=== PATIENT | male | born 1950 | race Caucasian/White ===

== ENCOUNTER 2022-11-29 18:02 | Emergency (ER) | payer MEDICARE, SELFPAY ==
[2022-11-29 18:38] VITALS: BP 148/73; PULSE 88; RESP 16; TEMP 36.7; O2SAT 95; BMI 29.5
--- NOTE | 2022-11-29 18:50 | XRR_ITS ---
PROCEDURE INFORMATION: Exam: XR Lumbosacral Spine Exam date and time: 11/29/2022 9:52 PM Age: 72 years old Clinical indication: Low back pain; Additional info: Low back pain with left radiculopathy TECHNIQUE: Imaging protocol: Radiologic exam of the lumbosacral spine. Views: 2 or 3 views. COMPARISON: No relevant prior studies available. FINDINGS: Bones/joints: Diffuse demineralization of the bones. The vertebral body stature is intact. 6 mm anterior subluxation of L4 on L5. Mild degenerative endplate changes, greatest at L1-L2 and L2-L3. The disc spaces are maintained. Soft tissues: Unremarkable. Vasculature: Abdominal arterial calcifications. XR/XR lumbar spine 2-3V* [id number] IMPRESSION: No acute findings.
[2022-11-29] MEDS: ketorolac 60 mg/2 mL INJ IM (23:19)
[2022-11-29] MEDS: orphenadrine 30 mg/mL Inj 2 mL 60 MG IM (23:20)
[2022-11-29 23:24] VITALS: BP 157/75; PULSE 58; RESP 18; O2SAT 96
--- NOTE | 2022-11-30 00:27 | ED_ITS ---
HPI - Back Pain/Injury General: Chief Complaint: Back Pain/Injury Stated Complaint: back pain Time Seen by Provider: 11/29/22 22:05 Source: patient Mode of arrival: ambulatory Limitations: no limitations History of Present Illness: Patient presents emergency department today for evaluation treatment of left low back, left buttock, and left upper leg pain. Patient noticed onset a couple of days ago without any known reason. He denies falls or MVAs. He does deal with chronic back pain but has never had anything quite like this. He states that weightbearing on the left extremity makes the pain worse and describes the pain as shooting from the left buttock region down the left lateral hip and left lateral leg. Pain stops around the knee. He denies tingling or numbness into the foot. No difficulty with bowel or bladder function. Review of Systems General: Reports: 10 or more systems reviewed and unremarkable except in HPI and below Physical Exam Const: COMMON NORMALS: no acute distress, patient oriented x3 and alert HENMT: COMMON NORMALS: normocephalic, atraumatic and hearing grossly normal bilaterally HEAD & SCALP: normocephalic and atraumatic Eye: COMMON NORMALS: Equal, round and reactive pupils present, EOMs intact bilaterally and conjunctivae normal CONJUNCTIVA: Yes conjunctivae normal PUPIL: Yes Equal, round and reactive pupils present Neck/C-Spine: COMMON NORMALS: full ROM and no JVD Lymph: LYMPHATIC: no lymphadenopathy noted Resp: COMMON NORMALS: normal respiratory effort, No retractions and No use of accessory muscles Cardio: COMMON NORMALS: no JVD and regular rate RATE: regular rate Extremity: NARRATIVE EXTREMITY EXAM: Patient is able to demonstrate full flexion extension of the left hip and left knee without difficulty. Patient's pain is traceable from the left mid buttock region down the left lateral hip and the left lateral thigh. Neuro: COMMON NORMALS: patient oriented x3 SENSORIUM/ORIENTATION: Yes alert Psych: COMMON NORMALS: mental status grossly normal, Normal thought process present, cooperative and normal affect THOUGHT PROCESS: Normal thought process present Skin: COMMON NORMALS: no rashes or lesions noted and turgor normal GENERAL SKIN EXAM: no rashes or lesions noted and turgor normal OTHER: No lower extremity edema appreciated. Course Vital Signs: Vital signs: Vital Signs Temperature 98.0 F 11/29/22 18:38 Pulse Rate 58 L 11/29/22 23:24 Respiratory Rate 18 11/29/22 23:24 Blood Pressure 157/75 11/29/22 23:24 Pulse Oximetry 96 11/29/22 23:24 Oxygen Delivery Me thod Room Air 11/29/22 23:24 MDM - Back Pain/Injury Medical Decision Making Given the lack of any known trauma and, distribution of the patient's pain from the left buttock region along the left lateral thigh, I do think patient is dealing with sciatica. However, as he indicates he has never had this before we did obtain lumbar films which, explained showed an area of anterior subluxation of L4 on L5. Explained symptoms of nerve root impingement and lumbar radiculopathy. Unfortunately, explained that this could become a recurrent issue given the general degenerative changes in his low back. Patient was tr eated with medication here in the emergency department with a prescription being sent in his discharge packet home with him to be picked up at his preferred pharmacy to be continued in the morning to continue treatment of his sciatic nerve pain. He was still given strict return precautions for inability to bear weight or loss of sensation in the extremity or, any change in bowel or bladder function. Patient verbalizes understanding and agreement to the treatment plan. Differential Diagnosis Likely lumbar radiculopathy, sciatica and strain of lumbar region; Unlikely pyelonephritis Labs Radiology Impressions Lumbar Spine X-Ray 11/29/22 18:50 IMPRESSION: No acute findings. Discharge Plan Discharge Patient Disposition: Home Clinical Impression: Lumbar radiculopathy, Sciatica Condition: Stable Prescriptions: New methylprednisolone 4 mg tablets,dose pack See Rx Instructions PO .COMPLEX Qty: 21 0RF Rx Instructions: orally per package directions methocarbamol 500 mg tablet 500 mg PO TID Qty: 15 0RF naproxen 500 mg tablet 500 mg PO BID PRN (Reason: pain) Qty: 20 0RF Discharge Orders: Discharge ED (Routine); Ordered 11/29/22 Ordered By: Natalie Watts Referrals: Lyle De La O DO [Primary Care Provider] - Discharge Diet: Usual diet Discharge Activity: Increase activity as tolerated Patient Instructions: Sciatica (ED) Activity Restrictions/Additional Instructions: Examination today appears consistent with sciatica. As we discussed, you have what appears to be a pinching of the nerve root from your low back. The x-ray read by the radiologist also confirms that there is some shifting back of a vertebrae in your low back though the actual structure of the vertebrae and the spacing above and below them are good. I have given you some information regarding sciatic nerve pain and pinching of the nerve roots for your reference at home. We are treating you with anti-inflammatory medications which can help. I still encourage you to use your gabapentin regularly for the next several days and you can still use your Eckley if needed. If you have inability to control your bowel or bladder functions or, are unable to feel your left lower extremity you need to be seen and reevaluated back to the emergency department. Coding Level of Care Code ED Paint Prep Technician for Erwin Snow
== END 2022-11-29 23:48 | disposition home or self-care (01) ==
PROVIDERS: Emergency Provider Physician Assistant; PCP Internal Medicine
DX: M54.16 Radiculopathy, lumbar region (principal); M54.30 Sciatica, unspecified side
CPT/HCPCS: 72100; 96372; 99284; J1885; J2360

== ENCOUNTER 2023-06-03 18:50 | Emergency (ER) | payer MEDICARE, SELFPAY ==
[2023-06-03 18:59] VITALS: BP 125/76; PULSE 101; TEMP 36.3; O2SAT 98; BMI 25.8
--- NOTE | 2023-06-03 19:15 | ED_ITS ---
HPI - Epistaxis General: Chief complaint: Epistaxis Stated complaint: nose bleed, post nasal surgery Time Seen by Provider: 06/03/23 19:08 History of Present Illness: Patient presents to the ER with complaints of nosebleed from bilateral naris, Dr. Bartlett did nasal surgery on him earlier today and put packing up. Patient stated that couple hours later started bleeding a couple more hours to just busted loose and is just running out his nose. Patient does report being on blood thinners and only holding them 2 days prior to surgery. Review of Systems General: Reports: 10 or more systems reviewed and unremarkable except in HPI and below Physical Exam Const: COMMON NORMALS: no acute distress, average body habitus, patient oriented x3, no limitations, healthy appearing, alert and well nourished HENMT: COMMON NORMALS: normocephalic, atraumatic, hearing grossly normal bilaterally, external ears normal and Normal external nose present; nasal mucous membranes&turbinates abnorm (Occluded with clot bilaterally worse on the left side epistaxis bilateral) HEAD & SCALP: normocephalic and atraumatic NOSE: Normal external nose present; nasal mucous membranes&turbinates abnorm (Occluded with clot bilaterally worse on the left side epistaxis bilateral) EXTERNAL EAR: Yes external ears normal Neck/C-Spine: COMMON NORMALS: full ROM, no lymphadenopathy, supple, no meningeal signs, no JVD and Thyroid normal THYROID: Thyroid normal Chest: COMMONS NORMALS: normal inspection of the chest and normal palpation of entire chest wall Resp: COMMON NORMALS: normal respiratory effort, No retractions, No use of accessory muscles and clear to auscultation bilaterally AUSCULTATION: clear to auscultation bilaterally Cardio: COMMON NORMALS: no JVD, regular rate, regular rhythm, S1 normal heart sound present, S2 normal heart sound present, No gallops present (Cardio), No clicks present (Cardio), No murmurs present (Cardio) and No rub (Cardio) RATE: regular rate RHYTHM: regular rhythm HEART SOUNDS: S1 normal heart s ound present and S2 normal heart sound present Neuro: COMMON NORMALS: patient oriented x3 SENSORIUM/ORIENTATION: Yes alert MENINGEAL SIGNS: Yes no meningeal signs Course Vital Signs: Vital signs: Vital Signs Temperature 97.4 F L 06/03/23 18:59 Pulse Rate 103 H 06/03/23 20:52 Respiratory Rate 16 06/03/23 20:52 Blood Pressure 117/97 06/03/23 20:52 Pulse Oximetry 91 06/03/23 20:52 Oxygen Delivery Me thod Room Air 06/03/23 18:59 MDM - Epistaxis Medical Decision Making Talk with Dr. Mrashall said if we can place bilateral Rhino Rocket's and if this does control bleeding he can follow-up with him in a couple days if this does not control bleeding or we cannot do that successfully call him back and he will come in. We tried to remove the clot manually and with suction and placed a Rhino Rocket in the left nares we were unsuccessful. We called Dr. Marshall who came in and proceeded to take care of the patient. Dr. Bartlett said he can be discharged. Differential Diagnosis Likely anterior epistaxis Medical Records I reviewed the patient's medical records. Lab Data I reviewed the patient's lab results. No radiology studies performed this visit Discharge Plan Discharge Patient Disposition: Home Clinical Impression: Epistaxis Condition: Stable Prescriptions: No Action methylprednisolone 4 mg tablets,dose pack See Rx Instructions PO .COMPLEX Qty: 21 0RF Rx Instructions: orally per package directions methocarbamol 500 mg tablet 500 mg PO TID Qty: 15 0RF naproxen 500 mg tablet 500 mg PO BID PRN (Reason: pain) Qty: 20 0RF Discharge Orders: Discharge ED (Routine); Ordered 06/03/23 Ordered By: Leonardo Smith Referrals: Lyle De La O DO [Primary Care Provider] - 1 week Patient Instructions: Epistaxis - Adult Activity Restrictions/Additional Instructions: Please follow Dr. Bello recommendations for your nosebleed. If it restarts to bleed please feel free to return to the ER for evaluation. Coding Level of Care Code ED Bleach Boiler Puller for Erwin Snow
--- NOTE | 2023-06-03 20:10 | PM.CONSULT ---
Providers/Reason For Consult Consulting Physician/Specialty*: Dr. Cameron Marshall MD Otolaryngology, Head & Neck Surgery Reason for Consult*: Post op epistaxis Requesting Physician: Dr. Smith Attending Physician: Dr. Smith Primary Care Provider: Lyle De La O DO History of Present Illness History of Present Illness Fabien Barakat is a 72 year old male who underwent bilateral endoscopic endonasal sinus surgery earlier today for chronic sinusitis with obstructing nasal polyposis who developed persistent, significant left sided epistaxis after his discharge from same day surgery earlier today. The patient denies any use of blood thinners or NSAIDs. The patient is without other c/o. Review of Systems General: Reports: 10 or more systems reviewed and unremarkable except in HPI and below Medications/Allergies Home Medications Medication Instructions Recorded Confirmed Last Taken Type methocarbamol 500 mg tablet 500 mg PO TID #15 tabs 11/29/22 Unknown Rx methylprednisolone 4 mg tablets in See Rx Instructions PO .COMPLEX 11/29/22 Unknown Rx a dose pack #21 ea naproxen 500 mg tablet 500 mg PO BID PRN pain #20 tabs 11/29/22 Unknown Rx Allergies Allergy/AdvReac Type Severity Reaction Status Date / Time No Known Allergies Allergy Verified 06/03/23 19:03 Doxycycline (100mg) tabs: one po BID [place] (5/325) tabs: 1-2 po Q5 hours prn pain Vitals/I&O/Wt Last Vital Signs Temp 97.4 F L 06/03/23 18:59 Pulse 101 H 06/03/23 18:59 BP 125/76 06/03/23 18:59 Pulse Ox 98 06/03/23 18:59 O2 Del Method Room Air 06/03/23 18:59 Weight last 48 hrs Weight 81.647 kg Physical Exam Const: COMMON NORMALS: patient oriented x3 GENERAL APPEARANCE: cooperative HENMT: COMMON NORMALS: normocephalic, atraumatic and hearing grossly normal bilaterally HEAD & SCALP: normocephalic and atraumatic FACE & SINUS: normal facial exam NOSE: Other nasal findings present (There is persistent epistaxis flowing from the left nasal cavity) Eye: COMMON NORMALS: EOMs intact bilaterally, no scleral icterus and normal visual woodward by confrontation Neck/C-Spine: COMMON NORMALS: full ROM and no lymphadenopathy Neuro: COMMON NORMALS: patient oriented x3 A&P Assessment and plan (1) Epistaxis: Impression: Post Surgical Epistaxis, Left Sided - Now controlled Plan: - Continue po Doxycycline and [place] as prescribed - Apply OTC Afrin nasal spray to the nose QID X 4 days - F/U in Dr. Marshall's office as previously outlined - Notify Dr. Marshall for any problems Consult Attestations Medical Necessity Statement: I was consulted to control the patient's post op Epistaxis. Procedures Procedure Narrative Anterior Nasal Packing Placement, Left Sided: Verbal informed consent was obtained from the patient; a Merocel pack was placed in the left nasal cavity without difficulty; the bleeding resolved after application of Afrin nasal spray to the nasal packing; the patient tolerated the procedure well. Coding Level of Care Code [facility] Ep[facility] R04.0
[2023-06-03 20:52] VITALS: BP 117/97; PULSE 103; RESP 16; O2SAT 91
== END 2023-06-03 20:53 | disposition home or self-care (01) ==
PROVIDERS: Emergency Provider Emergency Medicine; PCP Internal Medicine
DX: R04.0 Epistaxis (principal)
CPT/HCPCS: 99282

== ENCOUNTER 2024-06-21 13:40 | Inpatient (IN) | payer MEDICARE, SELFPAY ==
[2024-06-21] VITALS (14 sets, daily range): BP systolic 129–176; BP diastolic 66–93; PULSE 72–83; RESP 16–20; TEMP 36.7–37.3; O2SAT 86–93; BMI 28.7
--- NOTE | 2024-06-21 14:43 | XRR_ITS ---
PROCEDURE INFORMATION: Exam: XR Chest Exam date and time: 06/21/2024 3:20 PM Age: 73 years old Clinical indication: Shortness of breath; Additional info: SOB TECHNIQUE: Imaging protocol: Radiologic exam of the chest. Views: 1 view. COMPARISON: No relevant prior studies available. FINDINGS: Lungs: Mild bilateral lower lung predominant ill-defined reticulonodular opacity. Pleural spaces: The right lateral costophrenic sulcus is blunted. The left lateral costophrenic sulcus is blunted. No pneumothorax. Heart/Mediastinum: There is mild enlargement of the cardiac silhouette. Bones/joints: Bones are unremarkable. XR/XR chest 1V portable [id number] IMPRESSION: 1. Mild bilateral pulmonary opacity. Nonspecific. Possible acute or chronic lung disease. Infection and interstitial edema are possibilities. 2. Small bilateral pleural effusions.
--- NOTE | 2024-06-21 14:45 | W.ED.EXTPRO ---
HPI - Extremity Problem General: Chief complaint: Extremity Problem,Nontraumatic Stated complaint: dr maynard, blood clot in legs Time Seen by Provider: 06/21/24 14:19 Source: patient and family Mode of arrival: ambulatory Limitations: no limitations History of Present Illness: This patient was sent to the emergency department by his regular physician. He called because of swelling and discomfort and pain in his right leg has been present at least 2 days. There was no trauma associated with his current symptoms that he is aware. He denies any fevers or chills. He has a history of COPD and does use an inhaler as needed has not used his inhaler today. He denies any chest pain and has no cardiovascular history that he is aware. No prior history of thromboembolic events. He states his left leg is unaffected although he states this morning he noted it seemed to be a little bit swollen and in his foot area. But he had readily admits he has been less active the last couple of days. He has not been ill with fevers or other symptoms changed from usual constitutional symptoms. He is a diabetic and takes insulin for blood sugar control. He is a tobacco user and smokes on a daily basis. Associated symptoms: Deny chest pain, fever(s) or rash Related Data Home Medications ?Medication ?Instructions ?Recorded ?Confirmed albuterol sulfate 90 mcg/actuation 2 puff inhalation Q4H PRN 06/21/24 06/21/24 aerosol inhaler Shortness Of Breath amlodipine 10 mg tablet 10 mg PO DAILY 06/21/24 06/21/24 gabapentin 400 mg capsule 400 mg PO TID 06/21/24 06/21/24 hydrocodone 10 mg-acetaminophen 1 tab PO TID 06/21/24 06/21/24 325 mg tablet insulin degludec 200 unit/mL (3 15 unit SUBCUT BEDTIME 06/21/24 06/21/24 mL) subcutaneous pen (Tresiba FlexTouch U-200 insulin) irbesartan 300 1 tab PO DAILY 06/21/24 06/21/24 mg-hydrochlorothiazide 12.5 mg tablet metformin 1,000 mg tablet 1,000 mg PO BID 06/21/24 06/21/24 simvastatin 20 mg tablet 20 mg PO QPM 06/21/24 06/21/24 Allergies Allergy/AdvReac Type Severity Reaction Status Date / Time No Known Allergies Allergy Verified 06/21/24 13:57 Review of Systems Const: Denies: fever(s) or chills Eyes: Denies: change in vision ENMT: Denies: throat pain or odynophagia Card: Denies: chest pain, palpitations, syncope or pre-syncope Resp: Reports: wheezing; Denies: productive cough or non-productive cough GI: Denies: abdominal pain, nausea, vomiting or diarrhea : Denies: flank pain, difficulty urinating or dysuria Musc: Reports: extremity pain and extremity swelling; Denies: neck pain or back pain Skin/Breast: Denies: rash or pruritus Neuro: Denies: headache(s), numbness in extremities or weakness in extremities Tony/Lymph: Denies: easy bruising or easy bleeding Physical Exam Narrative: EXAM NARRATIVE: He is alert no acute distress makes good eye contact answers questions in a goal-directed fashion. Const: COMMON NORMALS: no acute distress, average body habitus, patient oriented x3 and no limitations GENERAL APPEARANCE: cooperative HENMT: COMMON NORMALS: normocephalic, Normal nasal mucous membranes and turbinates present and moist oral mucous membranes HEAD & SCALP: normocephalic NOSE: Normal nasal mucous membranes and turbinates present Eye: COMMON NORMALS: Equal, round and reactive pupils present and EOMs intact bilaterally PUPIL: Yes Equal, round and reactive pupils present Neck/C-Spine: COMMON NORMALS: full ROM, no lymphadenopathy, no JVD and No carotid bruits Chest: COMMONS NORMALS: normal inspection of the chest Resp: COMMON NORMALS: normal respiratory effort and No use of accessory muscles EFFORT & INSPECTION: Yes able to speak in complete sentences AUSCULTATION: no crackles, no rales and wheezes expiratory wheezes and lower bilaterally Cardio: COMMON NORMALS: no JVD, regular rate, regular rhythm, No murmurs present (Cardio) and Peripheral pulses 2+ throughout RATE: regular rate RHYTHM: regular rhythm PERIPHERAL PULSES: Peripheral pulses 2+ throughout GI: COMMON NORMALS: Normal to inspection, nondistended, normoactive bowel sounds present, Soft to palpation and non-tender PALPATION: Yes Soft to palpation Back/Pelvis: COMMON NORMALS: thoracic and lumbar spine normal to inspection, no thoracic nor lumbar tenderness, thoraco-lumbar ROM normal and straight leg raise negative bilaterally Extremity: NARRATIVE EXTREMITY EXAM: Examination with attention of his right lower extremity reveals pitting edema extending to his right knee. The skin is generally normal-appearing he does have a faint patch of erythema over the dorsum of his distal foot proximal to his metatarsals. No ascending lymphangitis or ascending erythema of the skin. There is no fissuring of the intertriginous skin. There is some firmness to the posterior calf. No palpable cords negative Homans' sign. He has intact knee joint with normal range of motion no laxity or instability. He has some mild tenderness to the anterior thigh but the skin appears to be normal. He has normal range of motion at the right hip. The remainder of his extremity exam is unremarkable. His left lower extremity is has no edema to my examination and his skin is normal. Neuro: COMMON NORMALS: patient oriented x3, moves all extremities, no focal motor deficits and no sensory deficits noted CRANIAL NERVES: Yes CN normal except as noted Psych: COMMON NORMALS: mental status grossly normal Skin: COMMON NORMALS: no rashes or lesions noted, no wounds and turgor normal GENERAL SKIN EXAM: no rashes or lesions noted and turgor normal Course Reevaluation(s): Reevaluation #1: Patient was reevaluated. There was some delay in getting his lower extremity Doppler ultrasound reading to crossover. Fortunately is negative there is no evidence of DVT. He does have an elevated BNP and no prior history of an elevation in BNP available within this medical record. That combined with his peripheral edema his chest x-ray suggesting interstitial he is concerned that there may be an occult CHF at play here even though most of his edema was right-sided but he does have some edema in his left lower extremity. Again he reiterated that he not ever had any diagnosed coronary disease and has not had any chest pain but also he does relate that he has been taking [place] periodically over the past several months for heartburn symptoms. He may also have a mild cellulitis component clinically and given with his elevated CRP certainly do not think of this as a likely deep space infection such as necrotizing fasciitis etc. at this time.. I think because of some of the uncertainty of his current presentation I think it is reasonable for us to go ahead and add troponin onto his laboratories and discussed hospitalist admission to observation status for diuresis, formal echocardiogram etc. A portable bedside ultrasound gave very limited views using the phased array probe and the parasternal long axis and parasternal short axis views but did show reasonable myocardial contractility and no evidence of gross pericardial effusion. Time: 18:44 Consultations: Consultation #1: Discussed with Dr. Sandra who agrees to admission does request a CT scan of the lower extremity. Time: 19:06 Vital Signs: Vital signs: Vital Signs Temperature 98.1 F 06/21/24 13:52 Pulse Rate 76 06/21/24 18:53 Respiratory Rate 20 H 06/21/24 18:00 Blood Pressure 158/77 06/21/24 18:53 Pulse Oximetry 91 06/21/24 18:53 Oxygen Delivery Me thod Room Air 06/21/24 18:53 Oxygen Flow Rate 2 06/21/24 17:30 MDM - Extremity (Nontraumatic) Medical Decision Making Patient's presentation is noted in the HPI. Differential at this point includes possible thromboembolic event with a DVT of the right lower extremity versus other potential etiologies of essentially unilateral pedal edema. No trauma history so unlikely to be a contributing factor. Bedside ultrasound was equivocal with no obvious intraluminal clot noted at the popliteal or the femoral vessels but we will go ahead and proceed with a D-dimer, BNP, CRP. After a somewhat prolonged evaluation because due to delayed venous ultrasound report he has examination was negative for DVT. He did have an elevated CRP and elevated BNP which provides additional confounders in his presentation. I do not think that we are able to sort him out adequately in the emergency department we will place him in observation for additional imaging to include CT scan, echocardiogram and further evaluation of what appears to be a mixed issue with potential cellulitis unlikely deep space infection, CHF, and is longstanding COPD as well as his acute hypokalemia. Lab Data I reviewed the patient's lab results. 06/21/24 14:53 06/21/24 14:53 Radiology Impressions Chest X-Ray 06/21/24 14:43 IMPRESSION: 1. Mild bilateral pulmonary opacity. Nonspecific. Possible acute or chronic lung disease. Infection and interstitial edema are possibilities. 2. Small bilateral pleural effusions. Venous Duplex 06/21/24 15:26 IMPRESSION: No deep venous thrombosis. Laboratory Results WBC 9.22 10^3/uL (3.29-11.43) 06/21/24 14:53 RBC 4.15 10^6/uL (3.85-5.65) 06/21/24 14:53 Hgb 12.90 g/dL (11.27-16.99) 06/21/24 14:53 Hct 39.7 % (37-53) 06/21/24 14:53 MCV 95.7 fl (82-101) 06/21/24 14:53 MCH 31.1 pg (27-33) 06/21/24 14:53 MCHC 32.5 g/dL (30-55) 06/21/24 14:53 RDW 15.1 % (12.1-15.1) 06/21/24 14:53 Plt Count 337 10^3/cmm (157-399) 06/21/24 14:53 MPV 9.8 fL (7.4-10.4) 06/21/24 14:53 Neut % (Auto) 56.2 % 06/21/24 14:53 Lymph % (Auto) 30.4 % 06/21/24 14:53 Butts % (Auto) 10.2 % 06/21/24 14:53 Eos % (Auto) 1.8 % 06/21/24 14:53 Baso % (Auto) 1.0 % 06/21/24 14:53 Neut # (Auto) 5.18 10^3/uL (1.8-7.7) 06/21/24 14:53 Lymph # (Auto) 2.8 10^3/uL (0.8-4.8) 06/21/24 14:53 Butts # (Auto) 0.9 10^3/uL (0.2-0.9) 06/21/24 14:53 Eos # (Auto) 0.2 10^3/uL (0.0-0.8) 06/21/24 14:53 Baso # (Auto) 0.1 10^3/uL (0.0-0.1) 06/21/24 14:53 Nucleated RBC % (auto) 0 % 06/21/24 14:53 Nucleated RBCs # 0.0 /100WBC 06/21/24 14:53 D-Dimer 0.80 ug/mLFEU (0-0.59) H 06/21/24 14:53 Sodium 142 mmol/L (136-145) 06/21/24 14:53 Potassium 3.3 mmol/L (3.5-5.1) L 06/21/24 14:53 Chloride 101 mmol/L (98-107) 06/21/24 14:53 Carbon Dioxide 28 mmol/L (22-29) 06/21/24 14:53 Anion Gap 16.3 (5-19) 06/21/24 14:53 BUN 10 mg/dL (8-23) 06/21/24 14:53 Creatinine 0.6 mg/dL (0.7-1.2) L 06/21/24 14:53 GFR Calculation Not Reportable 06/21/24 14:53 Glucose 94 mg/dL (65-115) 06/21/24 14:53 Calculated Osmolality 293 mOsm/kg (285-295) 06/21/24 14:53 Calcium 8.5 mg/dL (8.5-10.5) 06/21/24 14:53 Total Bilirubin 0.4 mg/dL (0.15-1.2) 06/21/24 14:53 AST 14 U/L (0-40) 06/21/24 14:53 ALT 12 U/L (0-41) 06/21/24 14:53 Alkaline Phosphatase 81 U/L (40-130) 06/21/24 14:53 C-Reactive Protein 80.3 mg/L (0.0-4.9) H 06/21/24 14:53 NT-Pro-B Natriuret Pep 3338 pg/mL (0-125) H 06/21/24 14:53 Total Protein 6.3 g/dL (6.6-8.7) L 06/21/24 14:53 Albumin 3.1 g/dL (3.5-5.2) L 06/21/24 14:53 Globulin 3.2 g/dL (1.3-4.6) 06/21/24 14:53 All radiology interpretation(s) finalized by discharge EKG Data EKG 1: I personally reviewed and interpreted this EKG as follows: Interpretation: Contemporaneous review of the EKG reveals a ventricular rate of 72 bpm. Normal NH interval, QRS duration, corrected QT interval. Normal axis. Occasional unifocal PVC noted. No acute ST-T wave changes noted. No ischemic changes. No prior tracing in the system. Discharge Plan Discharge Patient Disposition: Placed in Observation Clinical Impression: Cellulitis and abscess of right leg, Hypokalemia, Elevated brain natriuretic peptide (BNP) level, Lower extremity edema Condition: Stable Prescriptions: No Action gabapentin 400 mg capsule 400 mg PO TID hydrocodone-acetaminophen 10-325 mg tablet 1 tab PO TID amlodipine 10 mg tablet 10 mg PO DAILY simvastatin 20 mg tablet 20 mg PO QPM metformin 1,000 mg tablet 1,000 mg PO BID irbesartan-hydrochlorothiazide 300-12.5 mg tablet 1 tab PO DAILY albuterol sulfate 90 mcg/actuation HFA aerosol inhaler 2 puff INHALATION Q4H PRN (Reason: Shortness Of Breath) insulin degludec [Tresiba FlexTouch U-200] 200 unit/mL (3 mL) insulin pen 15 unit SUBCUT BEDTIME Referrals: Samuel Cannon MD [Primary Care Provider] - Print Language: Hebrew Coding Level of Care Code ED Real Estate Management Specialist for Erwin Snow
[2024-06-21 14:58] LABS: Basophils # 0.1 10^3/uL (0.0-0.1); Eosinophils # 0.2 10^3/uL (0.0-0.8); Eosinophils % 1.8 %; Hematocrit 39.7 % (37-53); Lymphocytes # 2.8 10^3/uL (0.8-4.8); Lymphocytes % 30.4 %; Mean Corpuscular HGB Conc 32.5 g/dL (30-55); Mean Corpuscular Hemoglobin 31.1 pg (27-33); Mean Corpuscular Volume 95.7 fl (82-101); Mean Platelet Volume 9.8 fL (7.4-10.4); Monocytes # 0.9 10^3/uL (0.2-0.9); Monocytes % 10.2 %; Neutrophils # 5.18 10^3/uL (1.8-7.7); Neutrophils % 56.2 %; Nucleated Red Blood Cells % 0 %; Platelet Count 337 10^3/cmm (157-399); Red Blood Count 4.15 10^6/uL (3.85-5.65); Red Cell Distribution Width 15.1 % (12.1-15.1); White Blood Count 9.22 10^3/uL (3.29-11.43)
--- NOTE | 2024-06-21 15:02 | ECG_ITS ---
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 Measurements Intervals [place] Rate: 72 P: 37 CT: 198 QRS: -5 QRSD: 112 T: 167 QT: 406 QTc: 445 Interpretive Statements SINUS RHYTHM WITH OCCASIONAL VENTRICULAR PREMATURE COMPLEXES LEFT VENTRICULAR HYPERTROPHY AND ST-T CHANGE [VOLTAGE CRITERIA PLUS ST/T ABNORMALITY] No previous ECG available for comparison Electronically Signed On 06-21-2024 19:16:59 CDT by Michela Crouch M.D. [email or web address] [email or web address]
--- NOTE | 2024-06-21 15:26 | USR_ITS ---
PROCEDURE INFORMATION: Exam: US Duplex Right Lower Extremity Veins, Limited Exam date and time: 06/21/2024 3:46 PM Age: 73 years old Clinical indication: Pain; Leg, lower; Right; Additional info: Pain sweling and elevated dimer TECHNIQUE: Imaging protocol: Real-time duplex ultrasound of the right extremity with 2-D holbrook scale, color Doppler flow and spectral waveform analysis including responses to compression and other maneuvers (when performed) with image documentation. Limited exam was focused on the right lower extremity veins. COMPARISON: No relevant prior studies available. FINDINGS: Right deep veins: Unremarkable. The common femoral, femoral, proximal profunda femoral and popliteal veins are patent without thrombus. Normal Doppler waveforms. Normal compressibility and/or augmentation response. Superficial veins: Greater saphenous vein at the saphenofemoral junction is patent without thrombus. Soft tissues: There is subcutaneous edema in the lower [place]. US/[place] [id number] IMPRESSION: No deep venous thrombosis.
[2024-06-21 15:29] LABS: Alanine Aminotransferase 12 U/L (0-41); Albumin Level 3.1 g/dL (3.5-5.2); Alkaline Phosphatase 81 U/L (40-130); Anion Gap 16.3 (5-19); Aspartate Amino Transferase 14 U/L (0-40); Blood Urea Nitrogen 10 mg/dL (8-23); C Reactive Protein 80.3 mg/L (0.0-4.9); Calcium 8.5 mg/dL (8.5-10.5); Carbon Dioxide 28 mmol/L (22-29); Chloride 101 mmol/L (98-107); Creatinine Clr Calc Pharmacy 95.9378; Globulin 3.2 g/dL (1.3-4.6); Glucose 94 mg/dL (65-115); NT Pro B Type Natriuretic Pept 3338 pg/mL (0-125); Osmolality Calculated 293 mOsm/kg (285-295); Potassium 3.3 mmol/L (3.5-5.1); Sodium 142 mmol/L (136-145); Total Bilirubin 0.4 mg/dL (0.15-1.2); Total Protein 6.3 g/dL (6.6-8.7)
[2024-06-21] MEDS: ipratropium-albuterol 3 mL Neb INHALATION (16:01)
[2024-06-21] MEDS: HYDROcodone-acetaminophen 5-325 mg Tablet 1 TAB PO (17:55)
--- NOTE | 2024-06-21 18:00 | PC.NURSE ---
pt very upset stating he's been here for hours and has had nothing for pain, this nurse took pt a ordered norco 5/325mg tab, pt states That won't do a damn thing it's no better than an aspirin This nurse offered to ask Doctor for something else, pt states I'll take that for now but I'm going to need something else.
[2024-06-21] MEDS: ketorolac 30 mg/mL INJ 15 MG IVP (18:18)
[2024-06-21] MEDS: ceFAZolin 2,000 mg SDV 1500 MG IVP (18:19)
[2024-06-21] MEDS: potassium bicarb 25 mEq Tablet 50 MEQ PO (18:44)
[2024-06-21] MEDS: FUROsemide 10 mg/mL SDV 2mL 20 MG IVP (18:49)
--- NOTE | 2024-06-21 19:05 | CTR_ITS ---
PROCEDURE INFORMATION: Exam: CT Right Lower Extremity, Leg Exam date and time: 06/21/2024 8:17 PM Age: 73 years old Clinical indication: Pain; Lower leg; Right; Additional info: Cellulitis vs nec fas(doubt) TECHNIQUE: Imaging protocol: CT of the right lower extremity without contrast was performed. Exam focused on the lower leg. Radiation optimization: All CT scans at this facility use at least one of these dose optimization techniques: automated exposure control; mA and/or kV adjustment per patient size (includes targeted exams where dose is matched to clinical indication); or iterative reconstruction. COMPARISON: [place] [id number] 06/21/2024 3:46 PM RADIATION DOSE METRICS: Total DLP (mGy-cm): 656.41 FINDINGS: Bones/joints: Small knee effusion. There is mild osteoarthritis and chondrocalcinosis at the knee. There is severe osteoarthritis at the 1st MTP joint and moderate osteoarthritis at the ankle. No acute fracture. Soft tissues: There is thickening and calcification the central band of the plantar fascia which could represent chronic plantar fasciitis. Mild to moderate subcutaneous edema throughout the lower leg and foot, greater distally. No soft tissue gas or fluid collection. Musculature is unremarkable. Vasculature: There is mild plaque with less than 50% stenosis of the popliteal artery. There is mild infrapopliteal arterial atherosclerotic disease with patent 3 vessel runoff to the foot. CT/CT lower leg RT w con [id number] IMPRESSION: 1. Subcutaneous edema throughout the lower extremity. No soft tissue gas to suggest necrotizing infection. No visible abscess. 2. Incidental findings above.
[2024-06-21 19:19] LABS: Troponin(5th) Baseline 44 ng/L (0-15)
--- NOTE | 2024-06-21 19:23 | ECG_ITS ---
[employer] 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 Measurements Intervals [place] Rate: 73 P: -17 TX: 198 QRS: -12 QRSD: 113 T: 138 QT: 405 QTc: 447 Interpretive Statements SINUS RHYTHM WITH OCCASIONAL VENTRICULAR PREMATURE COMPLEXES POSSIBLE LEFT ATRIAL ENLARGEMENT [-0.1mV P-WAVE IN V1/V2] MODERATE INTRAVENTRICULAR CONDUCTION DELAY [110+ ms QRS DURATION] MODERATE T-WAVE ABNORMALITY, CONSIDER LATERAL ISCHEMIA [-0.1+ mV T-WAVE IN I/aVL/V5/V6] Compared to ECG 06/21/2024 15:02:33 Intraventricular conduction delay now present T-wave abnormality now present Possible ischemia now present Left ventricular hypertrophy no longer present ST (T wave) deviation no longer present Electronically Signed On 06-21-2024 19:28:12 CDT by Michela Crouch M.D. [email or web address]
[2024-06-21] MEDS: iohexol 350 mg/mL 500 mL Btl (per mL) IV (20:19)
--- NOTE | 2024-06-21 20:46 | PM.HP ---
Providers/Chief Complaint Admitting Physician: Clovis Lucero MD Primary Care Provider: Samuel Cannon MD Chief Complaint: dr aleyda, blood clot in legs History of Present Illness Fabien Barakat is a 73 year old male without previous history of CHF MT or coronary disease presented with worsening of lower extremity swelling. Patient has history of hypertension, insulin-dependent diabetes, active smoker.Patient was sent by his PCP for concern related to DVT. Patient is stating that he started noticing lower extremity swelling in last 4 days, he has not noticed any fever chest pain nausea vomiting diarrhea. Endorsing orthopnea and PND. Does not use oxygen at home. He does not have any history of sleep apnea. Stays compliant with his medications. Smokes 1 pack/day. No alcohol recreational drugs. No family history of premature coronary disease.. Workup in the ER consistent with nonpurulent cellulitis of right leg: Hypokalemia, new onset CHF, echo requested, patient has been given IV Lasix Considering nonpurulent cellulitis I have put him on ceftriaxone D-dimer not high for his age, baseline troponin 44: No significant delta troponin, high CRP noted EKG showing sinus rhythm with PVCs, chest x-ray consistent with CHF Review of Systems Const: Denies: fever(s) Eyes: Denies: change in vision ENMT: Denies: throat pain Card: Reports: swelling of feet/ankles Resp: Reports: dyspnea GI: Denies: abdominal pain Medications/Allergies Home Medications ?Medication ?Instructions ?Recorded ?Confirmed ?Last Taken ?Type albuterol sulfate 90 mcg/actuation 2 puff inhalation Q4H PRN 06/21/24 06/21/24 Unknown History aerosol inhaler Shortness Of Breath amlodipine 10 mg tablet 10 mg PO DAILY 06/21/24 06/21/24 06/21/24 History gabapentin 400 mg capsule 400 mg PO TID 06/21/24 06/21/24 06/21/24 History hydrocodone 10 mg-acetaminophen 1 tab PO TID 06/21/24 06/21/24 06/21/24 History 325 mg tablet insulin degludec 200 unit/mL (3 15 unit SUBCUT BEDTIME 06/21/24 06/21/24 06/20/24 History mL) subcutaneous pen (Tresiba FlexTouch U-200 insulin) irbesartan 300 1 tab PO DAILY 0306/21/24 06/21/24 History mg-hydrochlorothiazide 12.5 mg tablet metformin 1,000 mg tablet 1,000 mg PO BID 06/21/24 06/21/24 Unknown History simvastatin 20 mg tablet 20 mg PO QPM 06/21/24 06/21/24 06/20/24 History Allergies Allergy/AdvReac Type Severity Reaction Status Date / Time No Known Allergies Allergy Verified 06/21/24 13:57 PFSH Acute PFSH: Medical History (Updated 06/21/24 @ 22:37 by Clovis Lucero MD) Epistaxis Vitals/I&O/Wt Last Vital Signs Temp 98.1 F 06/21/24 13:52 Pulse 81 06/21/24 19:00 Resp 20 H 06/21/24 18:00 BP 148/93 06/21/24 19:00 Pulse Ox 90 06/21/24 19:00 O2 Del Method Room Air 06/21/24 19:00 O2 Flow Rate 2 06/21/24 17:30 Weight last 48 hrs Weight 90.718 kg Physical Exam Narrative: Patient showing signs of CHF Cardiac wheezing Currently on 2 L GCS 15 Nonfocal neuroexam Lower extremity edema Right leg nonpurulent cellulitis Peripheral pulses intact Complaining of sciatica lower back pain radiating towards his right toes S1, S2 No audible stridor Pleasant and cooperative Nonfocal neuroexam Data 06/21/24 14:53 06/21/24 14:53 A&P Assessment and plan (1) Elevated brain natriuretic peptide (BNP) level: (2) Hypokalemia: (3) Lower extremity edema: (4) Cellulitis: (5) Hypoxia: (6) New onset of congestive heart failure: Plan New onset CHF EF unknown Requested echo Start IV Lasix Potassium supplementation twice daily regimen No history of MT CHF or coronary disease Troponin without significant delta Patient not endorsing active chest pain This could be related to chronic history of hypertension At this point no cardiology consultation indicated, depending on echo report further plan will be made Patient definitely will need outpatient cardiology follow-up for new onset CHF evaluation and management Nonpurulent cellulitis of right leg: No signs of DVT: D-dimer not high for his age IV antibiotics ceftriaxone can be switched to p.o. regimen in next 24 hours Hypokalemia: Replenished Acute hypoxia: Requiring 2 L, active smoker: CHF presentation as per the chest imaging Continue IV diuresis Check procalcitonin Insulin-dependent diabetes: Consistent carb diet insulin sliding scale Diabetic neuropathy: Continue gabapentin and hydrocodone Consistent carb/cardiac diet DVT prophylaxis: Heparin Full code PDMP PDMP Reviewed: Not Reviewed Attestations Medical Necessity Statement*: Anticipating discharge within 24 to 48 hours Diagnoses Elevated brain natriuretic peptide (BNP) level R79.89 Hypokalemia E87.6 Lower extremity edema R60.0 Cellulitis L03.90 Hypoxia R09.02 New onset of congestive heart failure I50.9
--- NOTE | 2024-06-21 21:04 | PC.NURSE ---
Pt report called to Med Surg, nurse Edward is taking pt and Sofía took pt report.
--- NOTE | 2024-06-21 21:44 | USCV_ITS ---
Fabien Barakat Age: 73 Gender: M : 1950 Exam Date: 06/21/2024 22:00 Ordering Phys: Clovis Lucero MD Technologist: TAMANNA [place] [facility] [place]: bilateral LE edema, Hx COPD, IDDM, long-term smoker continues smoking. No history of cardiac intervention per patient. BP: 171 / 83 HR: 77 Rhythm: Sinus Technical Quality: Adequate MEASUREMENTS (Male / Female) Normal Values 2D ECHO LV Diastolic Diameter PLAX 4.4 cm 4.2 - 5.9 / 3.9 - 5.3 cm IVS Diastolic Thickness 1.5 cm 0.6 - 1.0 / 0.6 - 0.9 cm IVS Systolic Thickness 1.7 cm LVPW Diastolic Thickness 1.4 cm 0.6 - 1.0 / 0.6 - 0.9 cm LVPW Systolic Thickness 1.7 cm LVOT Diameter 2.5 cm LV Ejection Fraction 2D Teich 48.8 % LV Ejection Fraction MOD 4C 59.5 % LV Ejection Fraction MOD 2C 26.8 % LV Ejection Fraction 2C AL 26.5 % LA Diameter 4.9 cm LA Sys Volume AL 114.2 cm cubed LA Sys Volume Index AL 53.5 cm cubed/m squared Aorta at Sinotubular Diameter 3.9 cm IVC Diameter 1.5 cm M-MODE LA Ao Ratio MM 1.1 AV Cusp Separation MM 2.4 cm DOPPLER AV Peak Velocity 126.0 cm/s LVOT Peak Velocity 76.0 cm/s AV Area Cont Eq vti 3.8 cm squared AV Area Cont Eq pk 2.9 cm squared MV Peak Velocity 105.0 cm/s MV Area PHT 5.2 cm squared Mitral E to A Ratio 1.7 TV Peak Velocity 201.5 cm/s TR Peak Velocity 211.0 cm/s TR Peak Gradient 17.8 mmHg TV Peak E Velocity 39.0 cm/s PV Peak Velocity 77.0 cm/s FINDINGS Left Ventricle Mild concentric left trickle hypertrophy. 50%.Grade III/IV diastolic dysfunction (restrictive filling pattern), severely elevated filling pressures. Mild diffuse hypokinesis inferolateral wall segment. Right Ventricle The right ventricle is normal in size and function. Right Atrium The right atrium is normal in size. Left Atrium Mildly increased left atrial size. Mitral Valve No gross abnormalities noted Aortic Valve Thickened aortic valve. Tricuspid Valve Trace tricuspid valve regurgitation. Pulmonic Valve Mild pulmonary valve regurgitation. Pericardium No pericardial effusion. Aorta Normal ascending aorta dimension. IVC Normal inferior vena cava. CONCLUSIONS Mild concentric left trickle hypertrophy. 50%.Grade III/IV diastolic dysfunction (restrictive filling pattern), severely elevated filling pressures. Mild diffuse hypokinesis inferolateral wall segment. Mildly increased left atrial size. Thickened aortic valve. Trace tricuspid valve regurgitation. Mild pulmonary valve regurgitation. There is no pericardial effusion. There are no intracardiac masses. No similar previous studies are available for comparison Dr Michela Crouch MD FAC (Electronically Signed) Final Date: 22 June 2024 01:35 S
[2024-06-21] MEDS: heparin 5,000 unit/mL INJ 1 mL 5000 UNIT SUBCUT (22:12)
[2024-06-21 22:40] LABS: Procalcitonin 0.06 ng/mL (0-0.5); Thyroid Stimulating Hormone 1.57 uIU/mL (0.27-4.20)
[2024-06-21] MEDS: gabapentin 400 mg Capsule PO (22:47)
[2024-06-21] MEDS: HYDROcodone-acetaminophen 10-325 mg Tablet 1 TAB PO (22:47)
[2024-06-22] VITALS (13 sets, daily range): BP systolic 152–182; BP diastolic 78–91; PULSE 66–91; RESP 16–26; TEMP 36.3–37; O2SAT 84–96
--- NOTE | 2024-06-22 00:42 | ECG_ITS ---
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 Measurements Intervals [place] Rate: 76 P: 3 GA: 194 QRS: 0 QRSD: 118 T: 110 QT: 392 QTc: 443 Interpretive Statements SINUS RHYTHM POSSIBLE LEFT ATRIAL ENLARGEMENT [-0.1mV P-WAVE IN V1/V2] MODERATE INTRAVENTRICULAR CONDUCTION DELAY [110+ ms QRS DURATION] ST DEVIATION AND MODERATE T-WAVE ABNORMALITY, CONSIDER LATERAL ISCHEMIA [-0.1+ mV T-WAVE IN I/aVL/V5/V6] Compared to ECG 06/21/2024 19:23:39 Ventricular premature complex(es) no longer present T-wave abnormality still present Possible ischemia still present Electronically Signed On 06-22-2024 22:16:44 CDT by Michela Crouch M.D. [email or web address]
[2024-06-22] MEDS: ipratropium-albuterol 3 mL Neb INHALATION ×3 (00:45→14:56)
[2024-06-22 02:14] LABS: Basophils # 0.1 10^3/uL (0.0-0.1); Eosinophils # 0.2 10^3/uL (0.0-0.8); Eosinophils % 1.9 %; Hematocrit 39.1 % (37-53); Lymphocytes % 25.6 %; Mean Corpuscular HGB Conc 32.2 g/dL (30-55); Mean Corpuscular Hemoglobin 31.3 pg (27-33); Mean Platelet Volume 9.7 fL (7.4-10.4); Monocytes # 0.8 10^3/uL (0.2-0.9); Monocytes % 10.2 %; Neutrophils # 4.86 10^3/uL (1.8-7.7); Nucleated Red Blood Cells % 0 %; Platelet Count 384 10^3/cmm (157-399); Red Blood Count 4.03 10^6/uL (3.85-5.65); White Blood Count 7.96 10^3/uL (3.29-11.43)
[2024-06-22 02:34] LABS: Troponin 5 6HR 48.97 ng/L (0-15); Troponin 5 6HR Delta 4.97 ng/L (0-12)
[2024-06-22 02:39] LABS: Anion Gap 14.9 (5-19); Blood Urea Nitrogen 10 mg/dL (8-23); C Reactive Protein 82.3 mg/L (0.0-4.9); Calcium 8.5 mg/dL (8.5-10.5); Carbon Dioxide 28 mmol/L (22-29); Chloride 103 mmol/L (98-107); Creatinine Clr Calc Pharmacy 95.9378; Glucose 138 mg/dL (65-115); Magnesium 2.1 mg/dL (1.7-2.3); Osmolality Calculated 295 mOsm/kg (285-295); Potassium 3.9 mmol/L (3.5-5.1); Sodium 142 mmol/L (136-145)
[2024-06-22 06:20] LABS: Glucose Point of Care 105 mg/dL (70-110)
--- NOTE | 2024-06-22 09:48 | PC.CHAP ---
Pastoral Care Encounter/Spiritual Assessment Type of Contact [] Declined apiculturist visit [] Patient/Family/Request visit [] Outpatient visit [] Follow-up visit [] Physician referral [] Code/Alert [x] Routine visit [] Staff referral [] Actively dying [] Patient sleeping [] Family support [] [] Out of room [] Palliative care [] [] Receiving care in room [] Pre-surgical visit [] Trauma [] Long length of stay [] ICU visit [] Other: Relational/Emotional Strength [x] Patient feels connected with others/family/visitors/staff [] Distress [] Loneliness/isolation [] Abandonment Spirituality of Patient [x] Person of Ragini [] Attends Druze of their Ragini [x] Believes in Prayer [] Reads Bible or Restoration materials [] There are Spiritual issues to be addressed Ax Survey Worker Interventions [x] Prayer [x] Active listening [] Non-anxious presence [x] Spiritual/emotional support [] Crisis/trauma care [] Spiritual counseling [] Bereavement support [] Provided bereavement packet [] Provided Bible/devotional materials [] Provided toy/stuffed animal, coloring book to patient or family member [] Provided Communion [] Anointing/Unity [] Salvation [x] Completed spiritual assessment [] Other: Impact on Illness or Injury [] Angry [] Fearful [] Anxious [] Often cries [] Exhaustion [] Unable to work [] Unable to attend gnosticist [] Unable to walk/stand [] Unable to read [] Unable to drive [] Unable to eat/drink [] Unable to sleep [] Unable to be with family [] Patient intubated [] Other: Summary Time spent with patient 5 min
[2024-06-22] MEDS: potassium chloride ER 20 mEq Tablet 40 MEQ PO (09:58)
[2024-06-22] MEDS: gabapentin 400 mg Capsule PO ×3 (09:58→20:42)
[2024-06-22] MEDS: losartan 50 mg Tablet 25 MG PO (09:58)
[2024-06-22] MEDS: FUROsemide 10 mg/mL SDV 10mL 40 MG IVP ×2 (09:58→20:42)
[2024-06-22] MEDS: sennosides-docusate Tablet 1 TAB PO (09:58)
[2024-06-22] MEDS: heparin 5,000 unit/mL INJ 1 mL 5000 UNIT SUBCUT ×2 (09:59→20:42)
[2024-06-22] MEDS: cefTRIAXone 2,000 mg SDV 2000 MG IVP (09:59)
[2024-06-22 11:26] LABS: Glucose Point of Care 150 mg/dL (70-110)
[2024-06-22] MEDS: insulin lispro 100 unit/1 mL SUBCUT ×2 (12:01→20:42)
[2024-06-22] MEDS: morphine 4 mg/mL SDV 1 mL 2 MG IVP (12:01)
[2024-06-22] MEDS: HYDROcodone-acetaminophen 5-325 mg Tablet 1 TAB PO ×2 (12:02→19:19)
--- NOTE | 2024-06-22 14:07 | P.PN_ITS ---
Subjective 2 Subjective: Seen this morning. Resting comfortably in bed. Was not aware of ulcer on her right toe Sister at bedside. Willing to stay in hospital for evaluation. Vitals/I&O/Wt Last Vital Signs Temp 97.7 F 06/22/24 11:35 Pulse 71 06/22/24 11:35 Resp 16 06/22/24 12:01 BP 174/91 06/22/24 11:35 Pulse Ox 94 06/22/24 11:35 O2 Del Method Nasal Cannula 06/22/24 11:35 O2 Flow Rate 3 06/22/24 11:12 06/21/24 06/22/24 06/22/24 22:59 06:59 14:59 Intake Total 0 / 0 360 / 360 840 / 840 Balance 0 / 0 360 / 360 840 / 840 Weight last 48 hrs Weight 93.213 kg Weight 90.718 kg Physical Exam 2 Narrative: Crackles bilateral lung bases., Hypertensive Currently on 2 L GCS 15 Nonfocal neuroexam Lower extremity edema Right leg nonpurulent cellulitis Third toe right foot swelling redness with ulcer on plantar surface. Peripheral pulses intact S1, S2 No audible stridor Pleasant and cooperative Nonfocal neuroexam Data 06/22/24 02:02 06/22/24 02:02 A&P Assessment and plan (1) Elevated brain natriuretic peptide (BNP) level: (2) Hypokalemia: (3) Lower extremity edema: (4) Cellulitis: (5) Hypoxia: (6) New onset of congestive heart failure: Plan New onset CHF EF unknown Requested echo Start IV Lasix Potassium supplementation twice daily regimen No history of NM CHF or coronary disease Troponin without significant delta Patient not endorsing active chest pain This could be related to chronic history of hypertension At this point no cardiology consultation indicated, depending on echo report further plan will be made Patient definitely will need outpatient cardiology follow-up for new onset CHF evaluation and management Nonpurulent cellulitis of right leg: No signs of DVT: D-dimer not high for his age IV antibiotics ceftriaxone can be switched to p.o. regimen in next 24 hours Hypokalemia: Replenished Acute hypoxia: Requiring 2 L, active smoker: CHF presentation as per the chest imaging Continue IV diuresis Check procalcitonin Insulin-dependent diabetes: Consistent carb diet insulin sliding scale Diabetic neuropathy: Continue gabapentin and hydrocodone Consistent carb/cardiac diet DVT prophylaxis: Heparin Full code 06/22/2024 Diabetic foot ulcer right third toe: Consult podiatry Continue ceftriaxone 2 g IV daily Consult cardiology: Mild concentric left trickle hypertrophy. 50%.Grade III/IV diastolic dysfunction (restrictive filling pattern), severely elevated filling pressures. Mild diffuse hypokinesis inferolateral wall segment. Wean off oxygen as able Continue to diurese Continue Lasix 40 IV twice daily Replete electrolytes as needed Continue insulin sliding scale PDMP PDMP Reviewed: Not Reviewed Attestations 2 Medical Necessity Statement*: Requires continued hospitalization for management of diabetic foot ulcer, IV diuresis and cardiology evaluation for new onset heart failure. Diagnoses Elevated brain natriuretic peptide (BNP) level R79.89 Hypokalemia E87.6 Lower extremity edema R60.0 Cellulitis L03.90 Hypoxia R09.02 New onset of congestive heart failure I50.9
--- NOTE | 2024-06-22 14:45 | P.CONIM_ITS ---
<Statement entered by Yogesh Wilcox M.D - 06/23/24 08:09> Patient was evaluated and cared for in conjunction with an advanced practice practitioner.? I personally examined the patient and reviewed the chart and all pertinent data including imaging, telemetry, and laboratory results.? I discussed the patient in detail with the advanced practice practitioner.? Please see? their note for complete consult note, testing results and agreed upon plan of care for the patient. Patient still has shortness of breath. No chest pain. GENERAL: Patient is alert, awake and oriented x3. HEART: Regular S1 and S2 LUNGS: Clear to auscultate bilaterally. CENTRAL NERVOUS SYSTEM: Grossly nonfocal. EXTREMITIES: Lower extremities with 1 + edema Continue IV lasix. Close I and Os. Monitor renal function. Patient will need stress test as well as regional wall motion abnormality on echocardiogram has diastolic congestive heart failure. However he does not want to stay in the hospital for stress test and wants further workup as outpatient. As this is not ACS, can proceed with that plan. Blood pressure is elevated. Will recommend uptitrating antihypertensive regimen. Can add hydralazine 50mg TID Thank you for involving us with care of this patient. Please call with questions. Providers/Reason For Consult 2 Consulting Physician/Specialty*: Dr Wilcox, cardiology Reason for Consult*: elevated troponin, new onset heart failure Requesting Physician: Dr Hodgson Attending Physician: Mary Hodgson MD Primary Care Provider: Samuel Cannon MD History of Present Illness History of Present Illness Fabien Barakat is a 73 year old male with past medical history of hypertension, insulin-dependent diabetes, smoking. He presented to the emergency room 06/21/2024 due to right lower extremity swelling and redness. He was found to have cellulitis in the right leg and antibiotics were initiated. Laboratory evaluation showed troponin 44-> 48-> 48, BNP 3338. Echocardiogram revealed LVEF 50%, grade 3 diastolic dysfunction and mild LVH. No significant valvular abnormalities. EKG showing some T wave inversion in the lateral leads which may be related to LVH. He is in sinus rhythm. Blood pressure while hospitalized has ranged from 140s to 170s over 80s to 90s. 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 He does not use oxygen at home and is chronically short of breath. Previous to this he did not have any chest pain nor does he now. He notes he has cataract surgery for the right eye planned for 07/05/2024. Review of Systems 2 Const: Denies: fever(s), chills, change in weight, fatigue or diaphoresis Eyes: Denies: change in vision ENMT: Denies: epistaxis Card: Reports: dyspnea on exertion; Denies: chest pain, palpitations, irregular heart rhythm, edema, syncope, pre- syncope, orthopnea or leg pain with exertion Resp: Denies: dyspnea, productive cough or wheezing GI: Denies: nausea, vomiting, hematemesis, hematochezia or melena : Denies: hematuria Musc: Denies: extremity swelling Tony/Lymph: Denies: easy bruising or easy bleeding Medications/Allergies Home Medications ?Medication ?Instructions ?Recorded ?Confirmed ?Last Taken ?Type albuterol sulfate 90 mcg/actuation 2 puff inhalation Q 4H PRN 06/21/24 06/21/24 Unknown History aerosol inhaler Shortness Of Breath amlodipine 10 mg tablet 10 mg PO DAILY 06/21/2406/0406/21/24 History gabapentin 400 mg capsule 400 mg PO TID 06/21/2406/2106/21/24 History hydrocodone 10 mg-acetaminophen 1 tab PO TID 06/21/24 06/21/24 06/21/24 History 325 mg tablet insulin degludec 200 unit/mL (3 15 unit SUBCUT BEDTIME 06/21/24 06/21/24 06/20/24 History mL) subcutaneous pen (Tresiba FlexTouch U-200 insulin) irbesartan 300 1 tab PO DAILY 06/21/2406/0406/21/24 History mg-hydrochlorothiazide 12.5 mg tablet metformin 1,000 mg tablet 1,000 mg PO BID 06/21/24 Unknown History simvastatin 20 mg tablet 20 mg PO QPM 06/21/2406/20/24 History Allergies Allergy/AdvReac Type Severity Reaction Status Date / Time No Known Allergies Allergy Verified 06/21/24 13:57 Current Medications Generic Name Dose Route Start Last Admin Trade Name Freq PRN Reason Stop Dose Admin Hydrocodone Bitart/Acetaminophen 1 tab 06/22/24 11:22 06/22/24 12:02 Hydrocodone-Acetaminophen 5-325 Mg Tablet PO 1 tab Q4H PRN Administration MODERATE PAIN Albuterol/Ipratropium 3 ml 06/21/24 21:44 06/22/24 06:29 Ipratropium-Albuterol 3 Ml Neb INHALATION 3 ml Q6H PRN Administration SHORTNESS OF BREATH Ceftriaxone Sodium 2,000 mg 06/22/24 09:00 06/22/24 09:59 Ceftriaxone 2,000 Mg Sdv IVP 2,000 mg Q24H SAEED Administration Protocol Furosemide 40 mg 06/22/24 09:00 06/22/24 09:58 Furosemide 10 Mg/Ml Sdv 10ml IVP 40 mg Q12H SAEED Administration Gabapentin 400 mg 06/21/24 22:30 06/22/24 09:58 Gabapentin 400 Mg Capsule PO 400 mg TID SAEED Administration Heparin Sodium (Porcine) 5,000 unit 06/21/24 21:44 06/22/24 09:59 Heparin 5,000 Unit/Ml Inj 1 Ml SUBCUT 5,000 unit Q12H SAEED Administration Insulin Human Lispro 0 unit 06/22/24 08:00 06/22/24 12:01 Insulin Lispro 100 Unit/1 Ml SUBCUT 4 unit WM&BEDTIME SAEED Administration Protocol Losartan Potassium 25 mg 06/22/24 09:00 06/22/24 09:58 Losartan 50 Mg Tablet PO 25 mg DAILY SAEED Administration Senna/Docusate Sodium 1 tab 06/22/24 09:00 06/22/24 09:58 Sennosides-Docusate Tablet PO 1 tab DAILY SAEED Administration PFSH Acute 2 PFSH: Medical History (Updated 06/22/24 @ 14:51 by FRANK Boone) Hypertension Epistaxis Vitals/I&O/Wt Last Vital Signs Temp 97.7 F 06/22/24 11:35 Pulse 71 06/22/24 11:35 Resp 16 06/22/24 12:01 BP 174/91 06/22/24 11:35 Pulse Ox 94 06/22/24 11:35 O2 Del Method Nasal Cannula 06/22/24 11:35 O2 Flow Rate 3 06/22/24 11:12 06/21/24 06/22/24 06/22/24 22:59 06:59 14:59 Intake Total 0 / 360 360 / 360 840 / 840 Balance 0 / 360 360 / 360 840 / 840 Weight last 48 hrs Weight 205 lb 8 oz Weight 200 lb Physical Exam 2 Const: COMMON NORMALS: no acute distress and patient oriented x3 GENERAL APPEARANCE: cooperative and comfortable ORIENTATION/CONSCIOUSNESS: Yes awake, Yes oriented to person, Yes oriented to place and Yes oriented to time Chest: COMMONS NORMALS: normal inspection of the chest and normal palpation of entire chest wall CHEST: Yes Symmetrical chest wall rise Resp: COMMON NORMALS: normal respiratory effort, No retractions and No use of accessory muscles EFFORT & INSPECTION: Yes symmetric chest movement A USCULTATION: wheezes expiratory wheezes and throughout Cardio: COMMON NORMALS: regular rate, regular rhythm, S1 normal heart sound present, S2 normal heart sound present, No gallops present (Cardio), No clicks present (Cardio), No murmurs present (Cardio) and No rub (Cardio) RATE: r egular rate RHYTHM: regular rhythm HEART SOUNDS: S1 normal heart sound present and S2 normal heart sound present PERIPHERAL PULSES: radial pulses present Extremity: NARRATIVE EXTREMITY EXAM: He has redness and swelling of the right foot, no significant edema above the right ankle or in the left leg. Neuro: COMMON NORMALS: patient oriented x3 and moves all extremities S ENSORIUM/ORIENTATION: Yes oriented to person, Yes oriented to place and Yes oriented to time Data 06/22/24 02:02 06/22/24 02:02 A&P Assessment and plan (1) Elevated brain natriuretic peptide (BNP) level: (2) New onset of congestive heart failure: (3) Hypertension: Plan Discussed with the patient options for workup of the predominantly diastolic heart failure. He does not want to stay in the hospital for cardiac workup- given the flat troponins and lack of chest pain, he can undergo stress test as an outpatient for further evaluation. Agree with IV diuresis, monitoring of renal function. PDMP PDMP Reviewed: Not Reviewed Coding Level of Care Code Acute Code for [facility] Fwd Diagnoses Elevated brain natriuretic peptide (BNP) level R79.89 New onset of congestive heart failure I50.9 Hypertension I10
--- NOTE | 2024-06-22 15:55 | PM.CONSULT ---
Providers/Reason For Consult Consulting Physician/Specialty*: Dr. Ayad Mojica, D.P.M./podiatry Reason for Consult*: Right foot cellulitis, ulcer Attending Physician: Mary Hodgson MD Primary Care Provider: Samuel Cannon MD History of Present Illness History of Present Illness Fabien Barakat is a 73 year old male with history of diabetes who has a distal clavus wound to the right foot third digit with cellulitis. Patient states that at times it becomes painful. He does not recall how long that this wound has been present. Patient has not seen a prosthetic technician up to this point. Patient initially presented to the emergency department on 06/21/2024 with complaint of swelling and discomfort and pain in his right leg. He states that it had been present for a couple of days. DVT workup was negative. Patient was admitted to the hospital for further workup and evaluation. Podiatry was consulted to provide evaluation and recommendation Review of Systems General: Reports: 10 or more systems reviewed and unremarkable except in HPI and below Const: Denies: fever(s), chills, body aches or change in appetite Eyes: Denies: change in vision or blurry vision Card: Denies: chest pain, palpitations or irregular heart rhythm Resp: Denies: dyspnea GI: Denies: abdominal pain, nausea, vomiting or diarrhea Musc: Reports: joint stiffness Skin/Breast: Reports: non-healing lesions and lesions Neuro: Reports: numbness in extremities Medications/Allergies Home Medications ?Medication ?Instructions ?Recorded ?Confirmed ?Last Taken ?Type albuterol sulfate 90 mcg/actuation 2 puff inhalation Q4H PRN 06/21/24 06/21/24 Unknown History aerosol inhaler Shortness Of Breath amlodipine 10 mg tablet 10 mg PO DAILY 06/21/24 06/21/24 06/21/24 History gabapentin 400 mg capsule 400 mg PO TID 06/21/24 06/21/24 06/21/24 History hydrocodone 10 mg-acetaminophen 1 tab PO TID 06/21/24 06/21/24 06/21/24 History 325 mg tablet insulin degludec 200 unit/mL (3 15 unit SUBCUT BEDTIME 06/21/24 06/21/24 06/20/24 History mL) subcutaneous pen (Tresiba FlexTouch U-200 insulin) irbesartan 300 1 tab PO DAILY 06/21/24 06/21/24 06/21/24 History mg-hydrochlorothiazide 12.5 mg tablet metformin 1,000 mg tablet 1,000 mg PO BID 06/21/24 06/21/24 Unknown History simvastatin 20 mg tablet 20 mg PO QPM 06/21/24 06/21/24 06/20/24 History Allergies Allergy/AdvReac Type Severity Reaction Status Date / Time No Known Allergies Allergy Verified 06/21/24 13:57 Current Medications Generic Name Dose Route Start Last Admin Trade Name Freq PRN Reason Stop Dose Admin Hydrocodone Bitart/Acetaminophen 1 tab 06/22/24 11:22 06/22/24 12:02 Hydrocodone-Acetaminophen 5-325 Mg Tablet PO 1 tab Q4H PRN Administration MODERATE PAIN Albuterol/Ipratropium 3 ml 06/21/24 21:44 06/22/24 14:56 Ipratropium-Albuterol 3 Ml Neb INHALATION 3 ml Q6H PRN Administration SHORTNESS OF BREATH Ceftriaxone Sodium 2,000 mg 06/22/24 09:00 06/22/24 09:59 Ceftriaxone 2,000 Mg Sdv IVP 2,000 mg Q24H SAEED Administration Protocol Furosemide 40 mg 06/22/24 09:00 06/22/24 09:58 Furosemide 10 Mg/Ml Sdv 10ml IVP 40 mg Q12H SAEED Administration Gabapentin 400 mg 06/21/24 22:30 06/22/24 15:00 Gabapentin 400 Mg Capsule PO 400 mg TID SAEED Administration Heparin Sodium (Porcine) 5,000 unit 06/21/24 21:44 06/22/24 09:59 Heparin 5,000 Unit/Ml Inj 1 Ml SUBCUT 5,000 unit Q12H SAEED Administration Insulin Human Lispro 0 unit 06/22/24 08:00 06/22/24 12:01 Insulin Lispro 100 Unit/1 Ml SUBCUT 4 unit WM&BEDTIME SAEED Administration Protocol Losartan Potassium 25 mg 06/22/24 09:00 06/22/24 09:58 Losartan 50 Mg Tablet PO 25 mg DAILY SAEED Administration Senna/Docusate Sodium 1 tab 06/22/24 09:00 06/22/24 09:58 Sennosides-Docusate Tablet PO 1 tab DAILY SAEED Administration PFSH Acute PFSH: Medical History (Updated 06/22/24 @ 16:02 by Ayad Mojica DPM) Hypertension Epistaxis Vitals/I&O/Wt Last Vital Signs Temp 97.6 F 06/22/24 15:52 Pulse 74 06/22/24 15:52 Resp 17 06/22/24 15:52 BP 166/84 06/22/24 15:52 Pulse Ox 91 06/22/24 15:52 O2 Del Method Nasal Cannula 06/22/24 15:52 O2 Flow Rate 3 06/22/24 14:56 06/22/24 06/22/24 06/22/24 06:59 14:59 22:59 Intake Total 360 / 360 840 / 840 Balance 360 / 360 840 / 840 Weight last 48 hrs Weight 205 lb 8 oz Weight 200 lb Physical Exam Narrative: BELOW IS A FOCUSED LOWER EXTREMITY EXAM GENERAL: A&O x 3 VASCULAR: DP/PT pulses palpable 2/4 with CFT intact, <3seconds to distal digits DERMATOLOGICAL: Full-thickness clavus ulceration to distal aspect of third digit. Negative probe to bone. Measures 0.4 x 0.3 x 0.1 cm. Hyperkeratotic borders. No active drainage no underlying fluctuance or signs of deep space abscess. Mild erythema extending proximally on the dorsum of the foot overlying the metatarsal phalangeal joint. No pain with palpation of periwound area. MUSCULOSKELETAL: Hammertoe contractures of lesser digits of right foot NEUROLOGICAL: Neurological sensation to the affected foot and ankle is present through L4-S1 dermatomes with no hyper/hypoesthesias, negative Tinel or Valleix's sign Data 06/22/24 02:02 06/22/24 02:02 A&P Assessment and plan (1) Diabetic ulcer of foot associated with diabetes mellitus due to underlying condition, with fat layer exposed: (2) Peripheral neuropathy: (3) Hammertoe of right foot: Plan -Patient has clavus wound to right foot third digit. No underlying abscess. Third digit is dactylitic -Labs and vitals reviewed -WBC 7.9 -ESR N/A -CRP 82.3 -HR 74 -RR 17 -Tmax 98.6 -Abx Rocephin -Diet: Okay for diet -Patient has erythematous, edematous right foot third digit. MRI ordered to rule out acute osteomyelitis of third digit. I do not plan for acute surgical intervention at this time based on the clinical findings. I will follow-up on MRI -Pain Mgmt: Per primary team -Weight bearing: Weightbearing as tolerated -Dressings: Bacitracin and Band-Aid -Continue current Abx therapy until ID and Sensitivity results -Trend labs -Discharge plan: Pending MRI findings -Podiatry will continue to round on patient daily and provide recommendations PDMP PDMP Reviewed: Not Reviewed Coding Level of Care Code Acute Code for [facility] Fwd Diagnoses Diabetic ulcer of foot associated with diabetes mellitus due to underlying condition, with fat layer exposed E08.621; L97.502 Peripheral neuropathy G62.9 Hammertoe of right foot M20.41
[2024-06-22 16:31] LABS: Glucose Point of Care 80 mg/dL (70-110)
[2024-06-22] MEDS: potassium chloride ER 20 mEq Tablet PO (18:43)
[2024-06-22 20:15] LABS: Glucose Point of Care 174 mg/dL (70-110)
[2024-06-23] VITALS (8 sets, daily range): BP systolic 152–191; BP diastolic 80–90; PULSE 65–74; RESP 16–20; TEMP 36.4–37; O2SAT 90–94
[2024-06-23] MEDS: HYDROcodone-acetaminophen 5-325 mg Tablet 1 TAB PO (02:12)
[2024-06-23 05:44] LABS: Basophils # 0.1 10^3/uL (0.0-0.1); Basophils % 1.2 %; Eosinophils # 0.2 10^3/uL (0.0-0.8); Eosinophils % 1.9 %; Lymphocytes % 24.2 %; Mean Corpuscular HGB Conc 31.5 g/dL (30-55); Mean Corpuscular Hemoglobin 30.8 pg (27-33); Mean Corpuscular Volume 97.9 fl (82-101); Mean Platelet Volume 10.1 fL (7.4-10.4); Monocytes # 1.1 10^3/uL (0.2-0.9); Monocytes % 12.5 %; Neutrophils # 5.03 10^3/uL (1.8-7.7); Neutrophils % 59.8 %; Nucleated Red Blood Cells % 0 %; Platelet Count 387 10^3/cmm (157-399); Red Blood Count 4.19 10^6/uL (3.85-5.65); Red Cell Distribution Width 14.8 % (12.1-15.1)
[2024-06-23 06:04] LABS: Anion Gap 17.2 (5-19); Blood Urea Nitrogen 10 mg/dL (8-23); Calcium 8.5 mg/dL (8.5-10.5); Carbon Dioxide 23 mmol/L (22-29); Chloride 100 mmol/L (98-107); Creatinine Clr Calc Pharmacy 95.3944; Glucose 108 mg/dL (65-115); Osmolality Calculated 282 mOsm/kg (285-295); Potassium 4.2 mmol/L (3.5-5.1); Sodium 136 mmol/L (136-145)
[2024-06-23 06:17] LABS: Glucose Point of Care 107 mg/dL (70-110)
--- NOTE | 2024-06-23 09:30 | MRR_ITS ---
PROCEDURE INFORMATION: Exam: MR Right Lower Extremity Other Than Joint Without and With Contrast; Foot Exam date and time: 06/23/2024 10:30 AM Age: 73 years old Clinical indication: Pain; History of ulcer on the right third toe/history of diabetes who has a distal clavus wound to the right foot third digit with cellulitis; Additional info: R/O osteomyelitis TECHNIQUE: Imaging protocol: Magnetic resonance imaging of the right lower extremity without and with contrast. Exam focused on the foot. Contrast material: MULTIHANCE; Contrast volume: 20 ml; Contrast route: INTRAVENOUS (IV); COMPARISON: CT lower leg RT w con [id number] 06/21/2024 8:17 PM FINDINGS: Bones/joints: Evaluation is limited by decreased signal in the forefoot. Confluent, decreased T1 marrow signal in the 3rd ray distal phalanx. Overlying mild soft tissue edema. Bone marrow signal is otherwise normal. Moderate degenerative change of the 1st MTP joint. Mild scattered degenerative changes otherwise. Soft tissues: Significant tenosynovial fluid of the flexor digitorum longus tendon in the region of the knot of Jed. Mild diffuse subcutaneous and muscle edema in the entire imaged foot. Correlate for cellulitis. No organized, drainable fluid collection. MR/MR foot RT wo/w con [id number] IMPRESSION: 1. Osteomyelitis of the 3rd ray distal phalanx. 2. Full details in the body of the report.
[2024-06-23] MEDS: FUROsemide 10 mg/mL SDV 10mL 40 MG IVP (09:42)
[2024-06-23] MEDS: cefTRIAXone 2,000 mg SDV 2000 MG IVP (09:43)
[2024-06-23] MEDS: gabapentin 400 mg Capsule PO (09:43)
[2024-06-23] MEDS: losartan 50 mg Tablet 25 MG PO (09:43)
[2024-06-23] MEDS: heparin 5,000 unit/mL INJ 1 mL 5000 UNIT SUBCUT (09:44)
[2024-06-23] MEDS: potassium chloride ER 20 mEq Tablet PO (09:44)
[2024-06-23] MEDS: sennosides-docusate Tablet 1 TAB PO (09:44)
--- NOTE | 2024-06-23 10:18 | P.PN_ITS ---
<Statement entered by Yogesh Wilcox M.D - 06/25/24 08:11> Patient was cared for in conjunction with an advanced practice practitioner.? I personally reviewed the chart and all pertinent data including imaging, telemetry, and laboratory results.? I discussed the patient in detail with the advanced practice practitioner.? Please see? their note for complete progress note, testing results and agreed upon plan of care for the patient. Subjective 2 Subjective: No events overnight, patient is awaiting an MRI study today. No chest pain or worsening shortness of breath. He appears well compensated. Blood pressure remains elevated. Vitals/I&O/Wt Last Vital Signs Temp 98.3 F 06/23/24 07:54 Pulse 74 06/23/24 08:33 Resp 16 06/23/24 08:33 BP 191/87 06/23/24 09:43 Pulse Ox 91 06/23/24 08:33 O2 Del Method Nasal Cannula 06/23/24 08:33 O2 Flow Rate 2 06/23/24 08:33 06/22/24 06/23/24 06/23/24 22:59 06:59 14:59 Intake Total 880 / 1960 240 / 1960 480 / 480 Balance 880 / 1960 240 / 1960 480 / 480 Weight last 48 hrs Weight 197 lb 8 oz Weight 205 lb 8 oz Weight 200 lb Physical Exam 2 Const: COMMON NORMALS: no acute distress and patient oriented x3 GENERAL APPEARANCE: cooperative and comfortable ORIENTATION/CONSCIOUSNESS: Yes awake, Yes oriented to person, Yes oriented to place and Yes oriented to time Chest: COMMONS NORMALS: normal inspection of the chest and normal palpation of entire chest wall CHEST: Yes Symmetrical chest wall rise Resp: COMMON NORMALS: normal respiratory effort, No retractions, No use of accessory muscles and clear to auscultation bilaterally EFFORT & INSPECTION: Yes symmetric chest movement AUSCULTATION: clear to auscultation bilaterally Cardio: COMMON NORMALS: regular rate, regular rhythm, S1 normal heart sound present, S2 normal heart sound present, No gallops present (Cardio), No clicks present (Cardio), No murmurs present (Cardio) and No rub (Cardio) RATE: r egular rate RHYTHM: regular rhythm HEART SOUNDS: S1 normal heart sound present and S2 normal heart sound present PERIPHERAL PULSES: radial pulses present Extremity: COMMON NORMALS: no pedal edema Neuro: COMMON NORMALS: patient oriented x3 and moves all extremities S ENSORIUM/ORIENTATION: Yes oriented to person, Yes oriented to place and Yes oriented to time Data 06/23/24 05:20 06/23/24 05:20 A&P Assessment and plan (1) Hypertension: (2) New onset of congestive heart failure: (3) Elevated brain natriuretic peptide (BNP) level: (4) Cellulitis: Plan Will continue current plan, evaluation of mildly reduced LVEF as an outpatient. At this time cardiology will sign off. PDMP PDMP Reviewed: Not Reviewed Attestations 2 Medical Necessity Statement*: Per hospitalist Coding Level of Care Code Acute Code for g Fwd Diagnoses Hypertension I10 New onset of congestive heart failure I50.9 Elevated brain natriuretic peptide (BNP) level R79.89 Cellulitis L03.90
[2024-06-23 11:46] LABS: Glucose Point of Care 151 mg/dL (70-110)
--- NOTE | 2024-06-23 12:19 | PM.DCS ---
Discharge Providers Date of Admission: 06/22/24 14:15 Date of Discharge: June 23, 2024 Attending Provider at Admission: Clovis Lucero MD Attending Provider at Discharge: Mary Hodgson MD Primary Care Provider: Samuel Cannon MD Diagnoses at Discharge Discharge Diagnosis (1) Diabetic ulcer of foot associated with diabetes mellitus due to underlying condition, with fat layer exposed: Status: Acute (2) Peripheral neuropathy: Status: Acute (3) Hammertoe of right foot: Status: Acute Reason for Visit Reason for Visit: dr maynard, blood clot in legs Hospital Course Hospital Course Patient admitted for new onset CHF. He was diuresed with IV Lasix and sent home on oral Lasix with potassium. He also had a diabetic foot ulcer right third toe with evidence of osteomyelitis. He was debrided by podiatry and bone biopsy was obtained. He was sent home on oral antibiotics at this time to follow-up with cardiology and podiatry within 1 week. Patient agreeable. Patient was also seen by cardiology during hospitalization and was recommended outpatient stress testing. Stress test was ordered at discharge. Patient will need close follow-up with primary cardiology and podiatry. Physical Exam Narrative: Lungs clear to auscultation bilaterally no longer having crackles. Currently on 2 L GCS 15 Nonfocal neuroexam Lower extremity edema Right leg nonpurulent cellulitis, improving. Third toe right foot swelling redness with ulcer on plantar surface.?Seen right before debridement by podiatry. Peripheral pulses intact S1, S2 No audible stridor Pleasant and cooperative Nonfocal neuroexam Discharge Data Studies Completed and Pending Completed Studies During Hospitalization Category Date Time Status CT lower leg RT w con [id number] Stat Cat Scan 06/21/24 19:05 Completed XR chest 1V portable [id number] Stat Exams 06/21/24 14:43 Completed CV. echo complete* [id number] Routine Ultrasound 06/21/24 21:44 Completed US venous duplex lower extremity RT [CV venous duplex Ultrasound 06/21/24 15:[place] [id number]] Stat Pending at discharge Category Date Time Status MR foot RT wo/w con [id number] Routine MRI 06/23/24 09:30 Taken Radiology Impressions Chest X-Ray 06/21/24 14:43 IMPRESSION: 1. Mild bilateral pulmonary opacity. Nonspecific. Possible acute or chronic lung disease. Infection and interstitial edema are possibilities. 2. Small bilateral pleural effusions. Venous Duplex 06/21/24 15:26 IMPRESSION: No deep venous thrombosis. Lower Extremity CT 06/21/24 19:05 IMPRESSION: 1. Subcutaneous edema throughout the lower extremity. No soft tissue gas to suggest necrotizing infection. No visible abscess. 2. Incidental findings above. Laboratory Results WBC 8.40 10^3/uL (3.29-11.43) 06/23/24 05:20 RBC 4.19 10^6/uL (3.85-5.65) 06/23/24 05:20 Hgb 12.90 g/dL (11.27-16.99) 06/23/24 05:20 Hct 41.0 % (37-53) 06/23/24 05:20 MCV 97.9 fl (82-101) 06/23/24 05:20 MCH 30.8 pg (27-33) 06/23/24 05:20 MCHC 31.5 g/dL (30-55) 06/23/24 05:20 RDW 14.8 % (12.1-15.1) 06/23/24 05:20 Plt Count 387 10^3/cmm (157-399) 06/23/24 05:20 MPV 10.1 fL (7.4-10.4) 06/23/24 05:20 Neut % (Auto) 59.8 % 06/23/24 05:20 Lymph % (Auto) 24.2 % 06/23/24 05:20 [place] % (Auto) 12.5 % 06/23/24 05:20 Eos % (Auto) 1.9 % 06/23/24 05:20 Baso % (Auto) 1.2 % 06/23/24 05:20 Neut # (Auto) 5.03 10^3/uL (1.8-7.7) 06/23/24 05:20 Lymph # (Auto) 2.0 10^3/uL (0.8-4.8) 06/23/24 05:20 [place] # (Auto) 1.1 10^3/uL (0.2-0.9) H 06/23/24 05:20 Eos # (Auto) 0.2 10^3/uL (0.0-0.8) 06/23/24 05:20 Baso # (Auto) 0.1 10^3/uL (0.0-0.1) 06/23/24 05:20 Nucleated RBC % (auto) 0 % 06/23/24 05:20 Nucleated RBCs # 0.0 /100WBC 06/23/24 05:20 D-Dimer 0.80 ug/mLFEU (0-0.59) H 06/21/24 14:53 Sodium 136 mmol/L (136-145) 06/23/24 05:20 Potassium 4.2 mmol/L (3.5-5.1) 06/23/24 05:20 Chloride 100 mmol/L (98-107) 06/23/24 05:20 Carbon Dioxide 23 mmol/L (22-29) 06/23/24 05:20 Anion Gap 17.2 (5-19) 06/23/24 05:20 BUN 10 mg/dL (8-23) 06/23/24 05:20 Creatinine 0.7 mg/dL (0.7-1.2) 06/23/24 05:20 GFR Calculation Not Reportable 06/23/24 05:20 Glucose 108 mg/dL (65-115) 06/23/24 05:20 POC Glucose 151 mg/dL (70-110) H 06/23/24 11:40 Calculated Osmolality 282 mOsm/kg (285-295) L 06/23/24 05:20 Calcium 8.5 mg/dL (8.5-10.5) 06/23/24 05:20 Magnesium 2.0 mg/dL (1.7-2.3) 06/23/24 05:20 Total Bilirubin 0.4 mg/dL (0.15-1.2) 06/21/24 14:53 AST 14 U/L (0-40) 06/21/24 14:53 ALT 12 U/L (0-41) 06/21/24 14:53 Alkaline Phosphatase 81 U/L (40-130) 06/21/24 14:53 Troponin T Baseline 44 ng/L (0-15) H 06/21/24 18:52 Troponin T 120 Minute 48.30 ng/L (0-15) H 06/21/24 21:50 Delta Troponin T 4.30 ABS# (0-10) 06/21/24 21:50 Troponin T Hi Sens 6Hr 48.97 ng/L (0-15) H 06/22/24 02:02 Troponin T Hi Sens 6Hr Delta 4.97 ng/L (0-12) 06/22/24 02:02 C-Reactive Protein 82.3 mg/L (0.0-4.9) H 06/22/24 02:02 NT-Pro-B Natriuret Pep 3338 pg/mL (0-125) H 06/21/24 14:53 Total Protein 6.3 g/dL (6.6-8.7) L 06/21/24 14:53 Albumin 3.1 g/dL (3.5-5.2) L 06/21/24 14:53 Globulin 3.2 g/dL (1.3-4.6) 06/21/24 14:53 Procalcitonin 0.06 ng/mL (0-0.5) 06/21/24 21:50 TSH 1.57 uIU/mL (0.27-4.20) 06/21/24 21:50 Vitals Last Vital Signs Temp 98.0 F 06/23/24 11:59 Pulse 65 06/23/24 11:59 Resp 20 H 06/23/24 11:59 BP 184/90 06/23/24 11:59 Pulse Ox 92 06/23/24 11:59 O2 Del Method Room Air 06/23/24 11:59 O2 Flow Rate 2 06/23/24 08:33 Discharge Plan Discharge Patient Disposition: Home Condition: Stable Prescriptions: New losartan 50 mg Tablet 25 mg PO DAILY Qty: 30 0RF potassium chloride [Klor-Con M20] 20 mEq Tablet,Er Particles/Crystals 20 meq PO DAILY Qty: 30 0RF amoxicillin-pot clavulanate 875-125 mg tablet 1 tab PO BID 14 Days Qty: 28 0RF hydralazine 50 mg tablet 50 mg PO TID Qty: 90 0RF furosemide [Lasix] 40 mg tablet 40 mg PO DAILY Qty: 30 0RF Continued gabapentin 400 mg capsule 400 mg PO TID amlodipine 10 mg tablet 10 mg PO DAILY simvastatin 20 mg tablet 20 mg PO QPM metformin 1,000 mg tablet 1,000 mg PO BID albuterol sulfate 90 mcg/actuation HFA aerosol inhaler 2 puff INHALATION Q4H PRN (Reason: Shortness Of Breath) insulin degludec [Tresiba FlexTouch U-200] 200 unit/mL (3 mL) insulin pen 15 unit SUBCUT BEDTIME Discontinued hydrocodone-acetaminophen 10-325 mg tablet 1 tab PO TID irbesartan-hydrochlorothiazide 300-12.5 mg tablet 1 tab PO DAILY No Action (DME) Post Op Shoe to the Right if available See Rx Instructions .Route .MEDSUPPLY Qty: 1 0RF Rx Instructions: As directed HOME- Patient needs a Post OP shoe to the Right if available if not Need a Short CAM Boot to the Right Length of Need 999 days (DME) CAM Boot to the Right See Rx Instructions .Route .MEDSUPPLY Qty: 1 0RF Rx Instructions: As directed HOME- Length of Need 999 days Discharge Orders: Discharge Order (Routine); Ordered 06/23/24 Ordered By: Mary Hodgson Other Ambulatory Orders: Sestamibi Stress Test Request (Routine) Timeframe: 1 Week Facility: [facility] - Location: Cardiac Diagnostic Laboratory Ordered By: Mary Hodgson Referrals: Samuel Cannon MD [Primary Care Provider] - 06/29/24 1:15 pm Yogesh Wilcox M.D [Physician] - 07/25/24 2:45 pm Discharge Diet: Cardiac Discharge Activity: Resume usual activity and Oxygen as instructed Patient Instructions: Cellulitis, Furosemide (By mouth) (Lasix), Potassium Chloride (By mouth), Amoxicillin/Clavulanate Potassium (By mouth), Hydralazine (By mouth), Losartan (By mouth), Osteomyelitis (DC), Opioid Safety Discharge Attestations Time Spent in Discharge Care*: greater than 30 min Quality Metrics Clinical Quality Measures [ No reported AMI, CVA or VTE this stay] Coding Level of Care Code Acute Code for Chg Fwd Diagnoses Diabetic ulcer of foot associated with diabetes mellitus due to underlying condition, with fat layer exposed E08.621; L97.502 Peripheral neuropathy G62.9 Hammertoe of right foot M20.41
[2024-06-23] MEDS: insulin lispro 100 unit/1 mL SUBCUT (12:49)
[2024-06-23 13:35] LABS: Estmated Average Glucose 192; Hemoglobin A1C 8.3 % (4.0-6.0)
== END 2024-06-23 16:35 | disposition home or self-care (01) | DRG 638 ==
LOC: ER 19:56 → MEDSURG 20:23
PROVIDERS: Admitting Provider Internal Medicine; Emergency Provider Emergency Medicine; PCP Family Medicine; Visit Provider Internal Medicine
DX: E11.621 Type 2 diabetes mellitus with foot ulcer (principal); I50.30 Unspecified diastolic (congestive) heart failure; M86.9 Osteomyelitis, unspecified; L03.115 Cellulitis of right lower limb; L97.512 Non-pressure chronic ulcer of other part of right foot with fat layer exposed; E11.42 Type 2 diabetes mellitus with diabetic polyneuropathy; E11.69 Type 2 diabetes mellitus with other specified complication; Z79.84 Long term (current) use of oral hypoglycemic drugs; Z79.4 Long term (current) use of insulin; M20.41 Other hammer toe(s) (acquired), right foot; I11.0 Hypertensive heart disease with heart failure; F17.200 Nicotine dependence, unspecified, uncomplicated; E87.6 Hypokalemia; R09.02 Hypoxemia
CPT/HCPCS: 36415; 36416; 71045; 73701; 73720; 80048; 80053; 82962; 83036; 83735; 83880; 84145; 84443; 84484; 85025; 85378; 86140; 87070; 87176; 87205; 93005; 93306; 93971; 94640; 94760; 96365; 96372; 96375; 99285; G0378; J0690; J0696; J1644; J1815; J1885; J1940; J2270; J9999

== ENCOUNTER → 2024-06-29 09:45 | Outpatient (BNVA) | payer MEDICARE, SELFPAY | PROVIDERS: PCP Family Medicine; Visit Provider Podiatrist Foot & Ankle Surgery | DX: L03.115 Cellulitis of right lower limb (principal); E11.621 Type 2 diabetes mellitus with foot ulcer; L97.512 Non-pressure chronic ulcer of other part of right foot with fat layer exposed; Z79.4 Long term (current) use of insulin; Z79.84 Long term (current) use of oral hypoglycemic drugs | CPT/HCPCS: 99203 ==

== ENCOUNTER → 2024-07-13 13:14 | Outpatient (BNVA) | payer MEDICARE, SELFPAY | PROVIDERS: PCP Family Medicine; Visit Provider Podiatrist Foot & Ankle Surgery | DX: I96 Gangrene, not elsewhere classified (principal); L03.115 Cellulitis of right lower limb; L97.514 Non-pressure chronic ulcer of other part of right foot with necrosis of bone | CPT/HCPCS: 99213 ==

== ENCOUNTER → 2024-07-20 13:13 | Outpatient (BNVA) | payer MEDICARE, SELFPAY | PROVIDERS: PCP Family Medicine; Visit Provider Podiatrist Foot & Ankle Surgery | DX: E11.621 Type 2 diabetes mellitus with foot ulcer (principal); L97.514 Non-pressure chronic ulcer of other part of right foot with necrosis of bone; L03.115 Cellulitis of right lower limb; Z79.84 Long term (current) use of oral hypoglycemic drugs; Z79.4 Long term (current) use of insulin | CPT/HCPCS: 11044; 87070; 87075; 87077; 87186; 87205; 99213; A6219 ==

== ENCOUNTER → 2024-07-27 13:01 | Outpatient (BNVA) | payer MEDICARE, SELFPAY | PROVIDERS: PCP Family Medicine; Visit Provider Podiatrist Foot & Ankle Surgery | DX: L97.514 Non-pressure chronic ulcer of other part of right foot with necrosis of bone (principal); L03.115 Cellulitis of right lower limb | CPT/HCPCS: 11042; 99214 ==

== ENCOUNTER → 2024-08-03 13:56 | Outpatient (BNVA) | payer MEDICARE, SELFPAY | PROVIDERS: PCP Family Medicine; Visit Provider Podiatrist Foot & Ankle Surgery | DX: E11.621 Type 2 diabetes mellitus with foot ulcer (principal); L97.514 Non-pressure chronic ulcer of other part of right foot with necrosis of bone; Z79.4 Long term (current) use of insulin | CPT/HCPCS: 11042; A6219 ==

== ENCOUNTER → 2024-08-10 14:28 | Outpatient (BNVA) | payer MEDICARE, SELFPAY | PROVIDERS: PCP Family Medicine; Visit Provider Podiatrist Foot & Ankle Surgery | DX: E11.621 Type 2 diabetes mellitus with foot ulcer (principal); L97.514 Non-pressure chronic ulcer of other part of right foot with necrosis of bone; Z79.4 Long term (current) use of insulin; Z79.84 Long term (current) use of oral hypoglycemic drugs | CPT/HCPCS: 11042; 73630; 99214 ==

== ENCOUNTER → 2024-08-24 14:23 | Outpatient (BNVA) | payer MEDICARE, SELFPAY | PROVIDERS: PCP Family Medicine; Visit Provider Podiatrist Foot & Ankle Surgery | DX: E11.621 Type 2 diabetes mellitus with foot ulcer (principal); L97.512 Non-pressure chronic ulcer of other part of right foot with fat layer exposed; L03.115 Cellulitis of right lower limb; Z79.4 Long term (current) use of insulin; Z79.84 Long term (current) use of oral hypoglycemic drugs | CPT/HCPCS: 73630; 99214 ==

== ENCOUNTER → 2024-08-31 12:44 | Outpatient (BNVA) | payer MEDICARE, SELFPAY | PROVIDERS: PCP Family Medicine; Visit Provider Thoracic Surgery (Cardiothoracic Vascular Surgery) | DX: E11.52 Type 2 diabetes mellitus with diabetic peripheral angiopathy with gangrene (principal); E11.621 Type 2 diabetes mellitus with foot ulcer; L97.512 Non-pressure chronic ulcer of other part of right foot with fat layer exposed | CPT/HCPCS: 11042; A6210 ==

== ENCOUNTER → 2024-09-07 13:04 | Outpatient (BNVA) | payer MEDICARE, SELFPAY | PROVIDERS: PCP Family Medicine; Visit Provider Thoracic Surgery (Cardiothoracic Vascular Surgery) | DX: E11.52 Type 2 diabetes mellitus with diabetic peripheral angiopathy with gangrene (principal); E11.621 Type 2 diabetes mellitus with foot ulcer; L97.512 Non-pressure chronic ulcer of other part of right foot with fat layer exposed | CPT/HCPCS: 97597; A6210 ==

== ENCOUNTER → 2024-09-14 13:40 | Outpatient (BNVA) | payer MEDICARE, SELFPAY | PROVIDERS: PCP Family Medicine; Visit Provider Thoracic Surgery (Cardiothoracic Vascular Surgery) | DX: E11.52 Type 2 diabetes mellitus with diabetic peripheral angiopathy with gangrene (principal); E11.621 Type 2 diabetes mellitus with foot ulcer; L97.511 Non-pressure chronic ulcer of other part of right foot limited to breakdown of skin | CPT/HCPCS: 97597; A6210 ==

== ENCOUNTER → 2024-09-21 14:30 | Outpatient (BNVA) | payer MEDICARE, SELFPAY | PROVIDERS: PCP Family Medicine | DX: E11.52 Type 2 diabetes mellitus with diabetic peripheral angiopathy with gangrene (principal); E11.621 Type 2 diabetes mellitus with foot ulcer; L97.511 Non-pressure chronic ulcer of other part of right foot limited to breakdown of skin | CPT/HCPCS: 97597; A6210 ==

== ENCOUNTER → 2024-10-03 09:01 | Outpatient (BNVA) | payer MEDICARE, SELFPAY | PROVIDERS: PCP Family Medicine; Visit Provider Thoracic Surgery (Cardiothoracic Vascular Surgery) | DX: E11.52 Type 2 diabetes mellitus with diabetic peripheral angiopathy with gangrene (principal); E11.621 Type 2 diabetes mellitus with foot ulcer; L97.511 Non-pressure chronic ulcer of other part of right foot limited to breakdown of skin | CPT/HCPCS: 97597; A6021 ==

== ENCOUNTER → 2024-10-10 12:56 | Outpatient (BNVA) | payer MEDICARE, SELFPAY | PROVIDERS: PCP Family Medicine; Visit Provider Thoracic Surgery (Cardiothoracic Vascular Surgery) | DX: Z09 Encounter for follow-up examination after completed treatment for conditions other than malignant neoplasm (principal); Z87.2 Personal history of diseases of the skin and subcutaneous tissue | CPT/HCPCS: 99212 ==

== ENCOUNTER 2024-12-07 15:26 | Outpatient (CLI) | payer MEDICARE, SELFPAY ==
--- NOTE | 2024-12-07 15:45 | USR_ITS ---
PROCEDURE INFORMATION: Exam: US Duplex Left Lower Extremity Arteries Or Arterial Bypass Grafts Exam date and time: 12/07/2024 4:15 PM Age: 74 years old Clinical indication: Pain; Leg, lower; Left; Additional info: Atherosclerosis of [place] arteries TECHNIQUE: Imaging protocol: Left Real-time duplex scan of the arteries or arterial bypass grafts of the left lower extremity with 2-D holbrook scale, color Doppler flow and spectral waveform analysis. Images documented and saved. COMPARISON: CR XR ankle LT min 3V* [id number] 11/30/2024 3:37 PM 0.2. FINDINGS: Left JOSELINE: 0.62 This is in the moderate to severe peripheral arterial disease range. Monophasic waveforms with spectral broadening seen throughout the left lower extremity. Marked increased flow velocity right common femoral artery. Peak systolic velocity ratio would indicate a stenosis in the 75-99% range right common femoral artery. US/[place] [id number] IMPRESSION: Stenosis in the 75-99% range left common femoral artery. JOSELINE indicates moderate to severe peripheral arterial disease left lower extremity. Monophasic waveforms and spectral broadening l throughout the left lower extremity.
== END 2024-12-07 15:27 | disposition home or self-care (01) ==
LOC: RAD 15:26
PROVIDERS: PCP Family Medicine; Visit Provider Thoracic Surgery (Cardiothoracic Vascular Surgery)
DX: I70.212 Atherosclerosis of native arteries of extremities with intermittent claudication, left leg (principal); I51.7 Cardiomegaly
CPT/HCPCS: 11042; 93926; 97597

== ENCOUNTER 2024-12-11 14:08 | Emergency (ER) | payer MEDICARE, SELFPAY ==
--- OUTSIDE RECORDS SUMMARY | 2018-04-15 06:24 | XMS_ITS | Continuity of Care Document ---
Author Organization [facility] Address [address] [place] [address] Phone Care Team Providers Care Reserve Officer Name Role Phone Lon BUSTAMANTE, Db Unavailable Unavailabl e Advance Directives Directive Yes / No Effective Date File Name No Information Encounters Encounter Description Practice Location Reason(s) For Visit Diagnoses Date Provider Providers Copied on Encounter [facility] , [address] [place], [place], [id number], [place] tel:[phone] [facility] No Information Lon Ace. [address], [address], [place], [place], [id number], [place]. tel:[phone] Family History Family Member Type Diagnosis Age At Onset No Information Payers Payer name Insurance type Covered libertarian ID Authoriza tion(s) No Information Social History [...]
--- OUTSIDE RECORDS SUMMARY | 2024-12-11 14:12 | XMS_ITS | Encounter Summary ---
Author Organization [employer] 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
--- OUTSIDE RECORDS SUMMARY | 2024-12-11 14:12 | XMS_ITS | Clinical Summary ---
Author Organization [employer] [facility] Address [address] 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
--- NOTE | 2024-12-11 14:21 | XRR_ITS ---
PROCEDURE INFORMATION: Exam: XR Left Foot Exam date and time: 12/11/2024 2:28 PM Age: 74 years old Clinical indication: Pain; Foot; Left; Additional info: Foot pain diabetic ulcers lt foot TECHNIQUE: Imaging protocol: Radiologic exam of the left foot. Views: 3 or more views. COMPARISON: CR XR foot LT min 3V* [id number] 11/30/2024 3:37 PM FINDINGS: Bones/joints: No acute fracture or dislocation. Degenerative joint disease. Soft tissues: No radiopaque foreign body. No significant soft tissue gas. XR/XR foot LT min 3V* [id number] IMPRESSION: No acute bony changes to suggest active osteomyelitis.
[2024-12-11 14:22] VITALS: BP 120/66; PULSE 75; RESP 16; TEMP 36.8; O2SAT 97; BMI 28.7
--- NOTE | 2024-12-11 14:26 | W.ED.EXTPRO ---
HPI - Extremity Problem General: Chief complaint: Extremity Problem,Nontraumatic Stated complaint: diabetic foot wound Time Seen by Provider: 12/11/24 14:11 Source: patient Mode of arrival: ambulatory Limitations: no limitations History of Present Illness: 74-year-old male history of diabetic foot ulcer on his left heel patient is currently on Bactrim does see wound care. Patient states has had increased pain to that heel he rates it a 10 out of 10 states that he is currently out of his hydrocodone. He denies any fevers denies any worse improving factors. Related Data Home Medications ?Medication ?Instructions ?Recorded ?Confirmed albuterol sulfate 90 mcg/actuation 2 puff inhalation Q4H PRN 06/21/24 08/24/24 aerosol inhaler Shortness Of Breath amlodipine 10 mg tablet 10 mg PO DAILY 06/21/24 08/24/24 gabapentin 400 mg capsule 400 mg PO TID 06/21/24 08/24/24 insulin degludec 200 unit/mL (3 15 unit SUBCUT BEDTIME 06/21/24 08/24/24 mL) subcutaneous pen (Tresiba FlexTouch U-200 insulin) metformin 1,000 mg tablet 1,000 mg PO BID 06/21/24 08/24/24 simvastatin 20 mg tablet 20 mg PO QPM 06/21/24 08/24/24 Previous Rx's ?Medication ?Instructions ?Recorded furosemide 40 mg tablet (Lasix) 40 mg PO DAILY #30 tabs 06/23/24 hydralazine 50 mg tablet 50 mg PO TID #90 tabs 06/23/24 losartan 50 mg tablet 25 mg (1/2 x 50 mg) PO DAILY #30 06/23/24 tabs potassium chloride 20 mEq 20 meq PO DAILY #30 tabs 06/23/24 tablet,extended release(part/cryst) (Klor-Con M) CAM Boot to the Right #1 ea 06/24/24 Post Op Shoe to the Right if #1 ea 06/24/24 available mupirocin 2 % topical ointment 1 applic topical BID #22 grams 06/29/24 hydrocodone 5 mg-acetaminophen 325 1 tab PO Q8H PRN pain 7 days #15 12/07/24 mg tablet tabs sulfamethoxazole 800 1 tab PO BID #14 tabs 12/07/24 mg-trimethoprim 160 mg tablet (Bactrim DS) Allergies Allergy/AdvReac Type Severity Reaction Status Date / Time No Known Allergies Allergy Verified 08/24/24 14:01 PFSH ED PFSH: Medical History (Updated 12/11/24 @ 14:55 by Chandu Marquez MD) Hypertension Epistaxis Social History Smoking and tobacco/nicotine status: current every day tobacco/nicotine user Course Vital Signs: Vital signs: Vital Signs Temperature 98.3 F 12/11/24 14:22 Pulse Rate 75 12/11/24 14:22 Respiratory Rate 18 12/11/24 14:35 Blood Pressure 120/66 12/11/24 14:38 Pulse Oximetry 98 12/11/24 14:38 Oxygen Delivery Me thod Room Air 12/11/24 14:22 MDM - Extremity (Nontraumatic) Medical Decision Making Patient presents for diabetic foot ulcer no signs of osteomyelitis white count here is normal he is continue his antibiotics follow-up with wound care he states he has an appoint with his doctor tomorrow he stable for discharge at this time Medical Records I reviewed the patient's medical records. Lab Data I reviewed the patient's lab results. 12/11/24 14:37 Laboratory Results WBC 10.26 10^3/uL (3.29-11.43) 12/11/24 14:37 RBC 4.33 10^6/uL (3.85-5.65) 12/11/24 14:37 Hgb 13.70 g/dL (11.27-16.99) 12/11/24 14:37 Hct 40.8 % (37-53) 12/11/24 14:37 MCV 94.2 fl (82-101) 12/11/24 14:37 MCH 31.6 pg (27-33) 12/11/24 14:37 MCHC 33.6 g/dL (30-55) 12/11/24 14:37 RDW 15.0 % (12.1-15.1) 12/11/24 14:37 Plt Count 359 10^3/cmm (157-399) 12/11/24 14:37 MPV 9.4 fL (7.4-10.4) 12/11/24 14:37 Neut % (Auto) 71.2 % 12/11/24 14:37 Lymph % (Auto) 14.3 % 12/11/24 14:37 [place] % (Auto) 11.3 % 12/11/24 14:37 Eos % (Auto) 1.5 % 12/11/24 14:37 Baso % (Auto) 1.2 % 12/11/24 14:37 Neut # (Auto) 7.31 10^3/uL (1.8-7.7) 12/11/24 14:37 Lymph # (Auto) 1.5 10^3/uL (0.8-4.8) 12/11/24 14:37 [place] # (Auto) 1.2 10^3/uL (0.2-0.9) H 12/11/24 14:37 Eos # (Auto) 0.2 10^3/uL (0.0-0.8) 12/11/24 14:37 Baso # (Auto) 0.1 10^3/uL (0.0-0.1) 12/11/24 14:37 Nucleated RBC % (auto) 0 % 12/11/24 14:37 Nucleated RBCs # 0.0 /100WBC 12/11/24 14:37 XR interpretation done by ED provider, pending radiology final review ED provider radiology interpretation(s): xr l foot: no acute abnormality Discharge Plan Discharge Patient Disposition: Home Clinical Impression: Diabetic foot ulcer Condition: Stable Prescriptions: No Action mupirocin 2 % ointment 1 applic topical BID Qty: 22 0RF hydrocodone-acetaminophen 5-325 mg tablet 1 tab PO Q8H PRN (Reason: pain) 7 Days Qty: 15 0RF sulfamethoxazole-trimethoprim [Bactrim DS] 800-160 mg tablet 1 tab PO BID Qty: 14 0RF (DME) Post Op Shoe to the Right if available See Rx Instructions .Route .MEDSUPPLY Qty: 1 0RF Rx Instructions: As directed HOME- Patient needs a Post OP shoe to the Right if available if not Need a Short CAM Boot to the Right Length of Need 999 days (DME) CAM Boot to the Right See Rx Instructions .Route .MEDSUPPLY Qty: 1 0RF Rx Instructions: As directed HOME- Length of Need 999 days gabapentin 400 mg capsule 400 mg PO TID amlodipine 10 mg tablet 10 mg PO DAILY simvastatin 20 mg tablet 20 mg PO QPM metformin 1,000 mg tablet 1,000 mg PO BID albuterol sulfate 90 mcg/actuation HFA aerosol inhaler 2 puff INHALATION Q4H PRN (Reason: Shortness Of Breath) insulin degludec [Tresiba FlexTouch U-200] 200 unit/mL (3 mL) insulin pen 15 unit SUBCUT BEDTIME losartan 50 mg Tablet 25 mg PO DAILY Qty: 30 0RF potassium chloride [Klor-Con M20] 20 mEq Tablet,Er Particles/Crystals 20 meq PO DAILY Qty: 30 0RF hydralazine 50 mg tablet 50 mg PO TID Qty: 90 0RF furosemide [Lasix] 40 mg tablet 40 mg PO DAILY Qty: 30 0RF Discharge Orders: Discharge ED (Routine); Ordered 12/11/24 Ordered By: Chandu Marquez Referrals: Samuel Cannon MD [Primary Care Provider, Family Practice] - 4-7 days Discharge Diet: Advance as tolerated Discharge Activity: Resume usual activity Patient Instructions: Foot Ulcers in a Person with Diabetes (ED) Print Language: Liberian Coding Level of Care Code ED Set Up Mechanic Coating Machines for Erwin Snow
[2024-12-11 14:35] VITALS: RESP 18
[2024-12-11] MEDS: morphine 4 mg/mL SDV 1 mL IM (14:35)
[2024-12-11 14:38] VITALS: BP 120/66; O2SAT 98
[2024-12-11 14:51] LABS: Hematocrit 40.8 % (37-53); Hemoglobin 13.70 g/dL (11.27-16.99); Mean Corpuscular HGB Conc 33.6 g/dL (30-55); Mean Corpuscular Hemoglobin 31.6 pg (27-33); Mean Corpuscular Volume 94.2 fl (82-101); Nucleated Red Blood Cells % 0 %; Platelet Count 359 10^3/cmm (157-399); Red Blood Count 4.33 10^6/uL (3.85-5.65); White Blood Count 10.26 10^3/uL (3.29-11.43)
[2024-12-11] MEDS: HYDROcodone-acetaminophen 10-325 mg Tablet 1 TAB PO (15:00)
[2024-12-11 15:18] VITALS: BP 120/66; PULSE 67; RESP 18; O2SAT 97
== END 2024-12-11 15:19 | disposition home or self-care (01) ==
PROVIDERS: Emergency Provider Emergency Medicine; PCP Family Medicine
DX: E11.621 Type 2 diabetes mellitus with foot ulcer (principal); L97.429 Non-pressure chronic ulcer of left heel and midfoot with unspecified severity; Z79.84 Long term (current) use of oral hypoglycemic drugs; Z79.4 Long term (current) use of insulin; Z72.0 Tobacco use; I10 Essential (primary) hypertension
CPT/HCPCS: 36415; 73630; 85025; 96372; 99284; J2270; J9999

== ENCOUNTER → 2024-12-15 14:52 | Outpatient (BNVA) | payer MEDICARE, SELFPAY | PROVIDERS: PCP Family Medicine; Visit Provider Thoracic Surgery (Cardiothoracic Vascular Surgery) | DX: E11.52 Type 2 diabetes mellitus with diabetic peripheral angiopathy with gangrene (principal); E11.621 Type 2 diabetes mellitus with foot ulcer; L97.421 Non-pressure chronic ulcer of left heel and midfoot limited to breakdown of skin; L97.411 Non-pressure chronic ulcer of right heel and midfoot limited to breakdown of skin | CPT/HCPCS: 11042; 87070; 87077; 87176; 87186; 87205; 97597 ==

== ENCOUNTER 2024-12-16 22:47 | Inpatient (IN) | payer MEDICARE, SELFPAY ==
--- OUTSIDE RECORDS SUMMARY | 2018-04-15 06:24 | XMS_ITS | Continuity of Care Document ---
Author Organization [facility] Address [address] [place] [address] Phone Care Team Providers Care Galvanometer Assembler Name Role Phone Lon BUSTAMANTE, Db Unavailable Unavailabl e Advance Directives Directive Yes / No Effective Date File Name No Information Encounters Encounter Description Practice Location Reason(s) For Visit Diagnoses Date Provider Providers Copied on Encounter [facility] , [address] [place], [place], [id number], [place] tel:[phone] [facility] No Information Lon Ace. [address], [address], [place], [place], [id number], [place]. tel:[phone] Family History Family Member Type Diagnosis Age At Onset No Information Payers Payer name Insurance type Covered republican ID Authoriza tion(s) No Information Social History Type Description Quantity Date Captured Comments Sex Male Smoking Status No Information Chief Complaint And Reason For Visit No Information Reason For Referral Reason For Referral No Information History Of Present Illness Encounter Date Complaint History Of Prese nt Illness No Information Functional Status Date Functional Assessmen t No Information Instructions Date Instruction Additional Infor mation No Information Assessments Type Assessment Date No Information Patient Care Teams Name Effective Dates (start - stop) Status Members No Information
--- OUTSIDE RECORDS SUMMARY | 2024-12-16 22:57 | XMS_ITS | Encounter Summary ---
Author Organization [employer] [facility] Address [address] [place] [address] Care Team Providers Care Junior Architect Name Role Phone Unavailable Primary Care Provider Unavailabl e Encounter Details Date Type Department Care Team (Latest Contact Info) Description 04/27/2002 Outpatient Historical HIS RADIOLOGY NEUROP Denzel Oden MD [address] [place] [address] [address] [place] [address] DISC DIS NEC/NOS-LUMBAR (Primary Dx) Social History Tobacco Use Types Packs/Day Years Used Date Smoking Tobacco: Never Assessed Sex and Gender Information Value Date Recorded Sex Assigned at Not on file 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
--- OUTSIDE RECORDS SUMMARY | 2024-12-16 22:57 | XMS_ITS | Clinical Summary ---
Author Organization [facility] Address [address] 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
[2024-12-16 23:04] VITALS: BP 132/56; PULSE 67; RESP 18; TEMP 37.3; O2SAT 96
--- NOTE | 2024-12-16 23:13 | W.ED.CHESTPA ---
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 He describes this as a pain/pressure in the central sternal area of his chest since approximately 10 AM today. He denied any palpitations. He does admit some association of shortness of breath, and nausea, that improved after emesis. The Zofran did not seem to work and route. Patient has already received aspirin 324 mg, Zofran, nitroglycerin sublingual and paste. He was brought in by EMS. Denies previous history of JOSE, or PTCA. He does however have recent diagnosis of left arterial stenosis. He also has history of diabetic wounds to bilateral feet. He stated this actually was more abrupt however. Associated symptoms: Deny abdominal pain, dyspnea, fever(s), nausea, palpitations or vomiting Related Data Home Medications ?Medication ?Instructions ?Recorded ?Confirmed albuterol sulfate 90 mcg/actuation 2 puff inhalation Q4H PRN 06/21/24 08/24/24 aerosol inhaler Shortness Of Breath amlodipine 10 mg tablet 10 mg PO DAILY 06/21/24 08/24/24 gabapentin 400 mg capsule 400 mg PO TID 06/21/24 08/24/24 insulin degludec 200 unit/mL (3 15 unit SUBCUT BEDTIME 06/21/24 08/24/24 mL) subcutaneous pen (Tresiba FlexTouch U-200 insulin) metformin 1,000 mg tablet 1,000 mg PO BID 06/21/24 08/24/24 simvastatin 20 mg tablet 20 mg PO QPM 06/21/24 08/24/24 Previous Rx's ?Medication ?Instructions ?Recorded furosemide 40 mg tablet (Lasix) 40 mg PO DAILY #30 tabs 06/23/24 hydralazine 50 mg tablet 50 mg PO TID #90 tabs 06/23/24 losartan 50 mg tablet 25 mg (1/2 x 50 mg) PO DAILY #30 06/23/24 tabs potassium chloride 20 mEq 20 meq PO DAILY #30 tabs 06/23/24 tablet,extended release(part/cryst) (Klor-Con M) CAM Boot to the Right #1 ea 06/24/24 Post Op Shoe to the Right if #1 ea 06/24/24 available mupirocin 2 % topical ointment 1 applic topical BID #22 grams 06/29/24 hydrocodone 5 mg-acetaminophen 325 1 tab PO Q8H PRN pain 7 days #15 12/07/24 mg tablet tabs sulfamethoxazole 800 1 tab PO BID #14 tabs 12/07/24 mg-trimethoprim 160 mg tablet (Bactrim DS) amoxicillin 500 mg-potassium 1 tab PO BID #20 tabs 12/15/24 clavulanate 125 mg tablet (Augmentin) Allergies Allergy/AdvReac Type Severity Reaction Status Date / Time No Known Allergies Allergy Verified 12/16/24 23:09 Review of Systems General: Reports: 10 or more systems reviewed and unremarkable except in HPI and below Const: Denies: fever(s), chills or body aches ENMT: Denies: throat pain or dry mouth Card: Denies: chest pain, palpitations or irregular heart rhythm Resp: Denies: dyspnea, productive cough or non-productive cough GI: Denies: abdominal pain, nausea or vomiting : Denies: flank pain or difficulty urinating Musc: Denies: neck pain or back pain Skin/Breast: Denies: rash or pruritus Neuro: Denies: headache(s) Psych: Denies: anxiety or depression Tony/Lymph: Reports: easy bruising and easy bleeding PFS ED PFSH: Medical History (Updated 12/17/24 @ 00:[address]) Hypertension Epistaxis Social History Smoking and tobacco/nicotine status: current every day tobacco/nicotine user Physical Exam Const: COMMON NORMALS: no acute distress, average body habitus, patient oriented x3, no limitations, healthy appearing, alert and well nourished HENMT: COMMON NORMALS: normocephalic, atraumatic and hearing grossly normal bilaterally HEAD & SCALP: normocephalic and atraumatic Lymph: LYMPHATIC: no lymphadenopathy noted Chest: COMMONS NORMALS: normal inspection of the chest and normal palpation of entire chest wall Resp: COMMON NORMALS: normal respiratory effort, No retractions and clear to auscultation bilaterally AUSCULTATION: clear to auscultation bilaterally Cardio: COMMON NORMALS: regular rate and regular rhythm RATE: regular rate RHYTHM: regular rhythm GI: COMMON NORMALS: Normal to inspection, nondistended, normoactive bowel sounds present, Soft to palpation, non-tender and No hepatosplenomegaly present PALPATION: Yes Soft to palpation and Yes No hepatosplenomegaly present : COMMON NORMALS: Yes no CVA tenderness BLADDER/KIDNEY EXAM: Yes no CVA tenderness Back/Pelvis: COMMON NORMALS: no CVA tenderness Extremity: COMMON NORMALS: normal to inspection, full ROM and capillary refill normal Neuro: COMMON NORMALS: patient oriented x3 SENSORIUM/ORIENTATION: Yes alert Psych: COMMON NORMALS: mental status grossly normal, Normal thought process present, cooperative, normal affect and speech normal SPEECH: Yes normal speech THOUGHT PROCESS: Normal thought process present Skin: COMMON NORMALS: no rashes or lesions noted and no wounds GENERAL SKIN EXAM: no rashes or lesions noted Course Reevaluation(s): Reevaluation #1: No further chest pain Consultations: Consultation #1: Discussed with hospitalist Dr. Moya, she excepted admission for inpatient, new onset atrial fibrillation, chest pain. Vital Signs: Vital signs: Vital Signs Temperature 98.2 F 12/17/24 03:35 Pulse Rate 68 12/17/24 03:35 Respiratory Rate 23 H 12/17/24 03:35 Blood Pressure 178/87 12/17/24 03:35 Pulse Oximetry 98 12/17/24 03:35 Oxygen Delivery Me thod Room Air 12/17/24 03:35 MDM - Chest Pain Medical Decision Making Patient is a 74-year-old male with history of DM, diabetic foot wounds, tobacco abuse, awaiting cardiology evaluation on 12/20 that reports to the emergency room with chest pain/pressure that occurred at 10 AM. Patient has new A-fib without RVR. He does not feel like he is having palpitations or irregularity. Denies any alcohol intake. Suspect a strong link to cardiac disease. At this time, CTA is pending, however given his new onset, inability to feel it, will place him on heparin and defer to hospitalist for admission and possible cardiology consultation. He has chest pain free at this time. Initial troponin is 38, with previous at 44. He has chest pain throughout the day. Second troponin is pending, although given his atrial fibrillation, hospitalist has a excepted him as to admission for new onset atrial flutter and fibrillation. I do suspect cardiology will consult on a routine basis tomorrow however there is no reason to bother them at this early hours. Patient has a controlled rate of A-fib at 71 on EKG and has continued to throughout his stay in the emergency room. Medical Records I reviewed the patient's medical records. Lab Data I reviewed the patient's lab results. 12/16/24 22:30 12/16/24 22:30 Radiology Impressions Chest X-Ray 12/16/24 23:14 IMPRESSION: 1. Cardiomegaly. 2. Subtle interstitial opacification, which may represent mild pulmonary edema in the setting of cardiomegaly. Interstitial pneumonia is not completely excluded. Chest CTA 12/16/24 23:47 IMPRESSION: 1. No acute pulmonary embolus or evidence of acute right heart strain. 2. Mild cardiomegaly. 3. Moderate to severe three-vessel coronary atherosclerosis. 4. No acute pulmonary process. 5. Findings, which may be suggestive renal osteodystrophy. Correlate with renal function. Laboratory Results WBC 14.53 10^3/uL (3.29-11.43) H 12/16/24 22: RBC 4.12 10^6/uL (3.85-5.65) 12/16/24 22: Hgb 12.70 g/dL (11.27-16.99) 12/16/24 22: Hct 37.5 % (37-53) 12/16/24 22: MCV 91.0 fl (82-101) 12/16/24 22: MCH 30.8 pg (27-33) 12/16/24 22: MCHC 33.9 g/dL (30-55) 12/16/24: RDW 15.0 % (12.1-15.1) 12/16/24 22: Plt Count 490 10^3/cmm (157-399) H 12/16/24 22: MPV 9.6 fL (7.4-10.4) 12/16/24 22: Neut % (Auto) 78.3 % 12/16/24 22:30 Lymph % (Auto) 13.1 % 12/16/24 22:30 [place] % (Auto) 7.1 % 12/16/24: Eos % (Auto) 0.5 % 12/16/24 22: Baso % (Auto) 0.5 % 12/16/24 22: Neut # (Auto) 11.39 10^3/uL (1.8-7.7) H 12/16/24 22: Lymph # (Auto) 1.9 10^3/uL (0.8-4.8) 12/16/24 22: [place] # (Auto) 1.0 10^3/uL (0.2-0.9) H 12/16/24: Eos # (Auto) 0.1 10^3/uL (0.0-0.8) 12/16/24: Baso # (Auto) 0.1 10^3/uL (0.0-0.1) 12/16/24: Nucleated RBC % (auto) 0 % 12/16/24: Nucleated RBCs # 0.0 /100WBC 12/16/24: D-Dimer 0.96 ug/mLFEU (0-0.59) H 12/16/24 22:30 Sodium 131 mmol/L (136-145) L 12/16/24: Potassium 4.4 mmol/L (3.5-5.1) 12/16/24 22: Chloride 97 mmol/L (98-107) L 12/16/24: Carbon Dioxide 20 mmol/L (22-29) L 12/16/24: Anion Gap 18.4 (5-19) 12/16/24:30 BUN 24 mg/dL (8-23) H 12/16/24 22: Creatinine 1.0 mg/dL (0.7-1.2) 12/16/24: GFR Calculation Not Reportable 12/16/24: Glucose 137 mg/dL (65-115) H 12/16/24 22: Calculated Osmolality 278 mOsm/kg (285-295) L 12/16/24: Calcium 10.1 mg/dL (8.5-10.5) 09/12/25 22:30 Total Bilirubin 0.4 mg/dL (0.15-1.2) 12/16/24 22:30 AST 17 U/L (0-40) 12/16/24 22:30 ALT 17 U/L (0-41) 12/16/24 22:30 Alkaline Phosphatase 161 U/L (40-130) H 12/16/24 22:30 Troponin T Baseline 38 ng/L (0-15) H 12/16/24 22:30 Troponin T 120 Minute 36.84 ng/L (0-15) H 12/17/24 00:50 Delta Troponin T -1.16 ABS# (0-10) L 12/17/24 00:50 NT-Pro-B Natriuret Pep 2207 pg/mL (0-125) H 12/16/24 22:30 Total Protein 7.7 g/dL (6.6-8.7) 12/16/24 22:30 Albumin 3.2 g/dL (3.5-5.2) L 12/16/24 22:30 Globulin 4.5 g/dL (1.3-4.6) 12/16/24 22:30 Urine Color Yellow (Yellow) 12/16/24 23:51 Urine Appearance Clear (CLEAR) 12/16/24 23:51 Urine pH 5.0 (5-7) 12/16/24 23:51 Ur Specific [place] 1.039 (1.005-1.030) H 12/16/24 23:51 Urine Protein 4+ (Negative) A 12/16/24 23:51 Urine Glucose (UA) Negative (Normal) 12/16/24 23:51 Urine Ketones Negative (Negative) 12/16/24 23:51 Urine Blood Negative (Negative) 12/16/24 23:51 Urine Nitrate Negative (Negative) 12/16/24 23:51 Urine Bilirubin Negative (Negative) 12/16/24 23:51 Urine Urobilinogen 1.0 mg/dL (Negative) 12/16/24 23:51 Ur Leukocyte Esterase Negative (Negative) 12/16/24 23:51 Urine RBC 3-5 /hpf (0-2) 12/16/24 23:51 Urine WBC 0-5 /hpf (0-5) 12/16/24 23:51 Ur Squamous Epith Cells 0-4 /hpf (0-5) H 12/16/24 23:51 Amorphous Sediment Not Reportable 12/16/24 23:51 Urine Bacteria None /hpf (NONE) 12/16/24 23:51 All radiology interpretation(s) finalized by discharge EKG Data EKG 1: Interpretation: Atrial fibrillation with aberrant conduction, PVCs, left axis deviation, no ST segment elevation, QTc 402 ms. When compared to previous, left axis, poor R wave progression, atrial fibrillation have changed. 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 Fwd Documented by User: Shahram Carrizales DO 12/17/24 05:44 HPI - Chest Pain General: Chief Complaint: Chest Pain Stated Complaint: CP Time Seen by Provider: 12/16/24 23:07 Related Data Home Medications ?Medication ?Instructions ?Recorded ?Confirmed albuterol sulfate 90 mcg/actuation 2 puff inhalation Q4H PRN 06/21/24 08/24/24 aerosol inhaler Shortness Of Breath amlodipine 10 mg tablet 10 mg PO DAILY 06/21/24 08/24/24 gabapentin 400 mg capsule 400 mg PO TID 06/21/24 08/24/24 insulin degludec 200 unit/mL (3 15 unit SUBCUT BEDTIME 06/21/24 08/24/24 mL) subcutaneous pen (Tresiba FlexTouch U-200 insulin) metformin 1,000 mg tablet 1,000 mg PO BID 06/21/24 08/24/24 simvastatin 20 mg tablet 20 mg PO QPM 06/21/24 08/24/24 Previous Rx's ?Medication ?Instructions ?Recorded furosemide 40 mg tablet (Lasix) 40 mg PO DAILY #30 tabs 06/23/24 hydralazine 50 mg tablet 50 mg PO TID #90 tabs 06/23/24 losartan 50 mg tablet 25 mg (1/2 x 50 mg) PO DAILY #30 06/23/24 tabs potassium chloride 20 mEq 20 meq PO DAILY #30 tabs 06/23/24 tablet,extended release(part/cryst) (Klor-Con M) CAM Boot to the Right #1 ea 06/24/24 Post Op Shoe to the Right if #1 ea 06/24/24 available mupirocin 2 % topical ointment 1 applic topical BID #22 grams 06/29/24 hydrocodone 5 mg-acetaminophen 325 1 tab PO Q8H PRN pain 7 days #15 12/07/24 mg tablet tabs sulfamethoxazole 800 1 tab PO BID #14 tabs 12/07/24 mg-trimethoprim 160 mg tablet (Bactrim DS) amoxicillin 500 mg-potassium 1 tab PO BID #20 tabs 12/15/24 clavulanate 125 mg tablet (Augmentin) Allergies Allergy/AdvReac Type Severity Reaction Status Date / Time No Known Allergies Allergy Verified 12/16/24 23:09 [facility] ED [facility]: Medical History (Updated 12/17/24 @ 00:[address]) Hypertension Epistaxis Social History Smoking and tobacco/nicotine status: current every day tobacco/nicotine user Course Vital Signs: Vital signs: Vital Signs Temperature 98.2 F 12/17/24 03:35 Pulse Rate 68 12/17/24 03:35 Respiratory Rate 23 H 12/17/24 03:35 Blood Pressure 178/87 12/17/24 03:35 Pulse Oximetry 98 12/17/24 03:35 Oxygen Delivery Me thod Room Air 12/17/24 03:35 MDM - Chest Pain Medical Decision Making Patient is a 74-year-old male with history of DM, diabetic foot wounds, tobacco abuse, awaiting cardiology evaluation on 12/20 that reports to the emergency room with chest pain/pressure that occurred at 10 AM. Patient has new A-fib without RVR. He does not feel like he is having palpitations or irregularity. Denies any alcohol intake. Suspect a strong link to cardiac disease. At this time, CTA is pending, however given his new onset, inability to feel it, will place him on heparin and defer to hospitalist for admission and possible cardiology consultation. He has chest pain free at this time. Initial troponin is 38, with previous at 44. He has chest pain throughout the day. Second troponin is pending, although given his atrial fibrillation, hospitalist has a excepted him as to admission for new onset atrial flutter and fibrillation. I do suspect cardiology will consult on a routine basis tomorrow however there is no reason to bother them at this early hours. Patient has a controlled rate of A-fib at 71 on EKG and has continued to throughout his stay in the emergency room. Patient was originally seen by Ms. Christina PA-C. I agree with her history, evaluation, and management. Admission orders are written. Lab Data 12/16/24 22:30 12/16/24 22:30 Radiology Impressions Chest X-Ray 12/16/24 23:14 IMPRESSION: 1. Cardiomegaly. 2. Subtle interstitial opacification, which may represent mild pulmonary edema in the setting of cardiomegaly. Interstitial pneumonia is not completely excluded. Chest CTA 12/16/24 23:47 IMPRESSION: 1. No acute pulmonary embolus or evidence of acute right heart strain. 2. Mild cardiomegaly. 3. Moderate to severe three-vessel coronary atherosclerosis. 4. No acute pulmonary process. 5. Findings, which may be suggestive renal osteodystrophy. Correlate with renal function. Laboratory Results WBC 14.53 10^3/uL (3.29-11.43) H 12/16/24 22:30 RBC 4.12 10^6/uL (3.85-5.65) 12/16/24 22:30 Hgb 12.70 g/dL (11.27-16.99) 12/16/24 22:30 Hct 37.5 % (37-53) 12/16/24 22:30 MCV 91.0 fl (82-101) 12/16/24 22: MCH 30.8 pg (27-33) 12/16/24 22: MCHC 33.9 g/dL (30-55) 12/16/24 22:30 RDW 15.0 % (12.1-15.1) 12/16/24 22:30 Plt Count 490 10^3/cmm (157-399) H 12/16/24 22:30 MPV 9.6 fL (7.4-10.4) 12/16/24 22: Neut % (Auto) 78.3 % 12/16/24 22: Lymph % (Auto) 13.1 % 12/16/24 22: [place] % (Auto) 7.1 % 12/16/24: Eos % (Auto) 0.5 % 12/16/24:30 Baso % (Auto) 0.5 % 12/16/24: Neut # (Auto) 11.39 10^3/uL (1.8-7.7) H 12/16/24 22:30 Lymph # (Auto) 1.9 10^3/uL (0.8-4.8) 12/16/24: [place] # (Auto) 1.0 10^3/uL (0.2-0.9) H 12/16/24: Eos # (Auto) 0.1 10^3/uL (0.0-0.8) 12/16/24: Baso # (Auto) 0.1 10^3/uL (0.0-0.1) 12/16/24: Nucleated RBC % (auto) 0 % 12/16/24: Nucleated RBCs # 0.0 /100WBC 12/16/24: D-Dimer 0.96 ug/mLFEU (0-0.59) H 12/16/24 22:30 Sodium 131 mmol/L (136-145) L 12/16/24 22: Potassium 4.4 mmol/L (3.5-5.1) 12/16/24: Chloride 97 mmol/L (98-107) L 12/16/24 22: Carbon Dioxide 20 mmol/L (22-29) L 12/16/24: Anion Gap 18.4 (5-19) 12/16/24: BUN 24 mg/dL (8-23) H 12/16/24: Creatinine 1.0 mg/dL (0.7-1.2) 12/16/24 22: GFR Calculation Not Reportable 12/16/24: Glucose 137 mg/dL (65-115) H 12/16/24 22:30 Calculated Osmolality 278 mOsm/kg (285-295) L 09/12/25 22:30 Calcium 10.1 mg/dL (8.5-10.5) 12/16/24 22:30 Total Bilirubin 0.4 mg/dL (0.15-1.2) 12/16/24 22:30 AST 17 U/L (0-40) 12/16/24 22:30 ALT 17 U/L (0-41) 12/16/24 22:30 Alkaline Phosphatase 161 U/L (40-130) H 12/16/24 22:30 Troponin T Baseline 38 ng/L (0-15) H 12/16/24 22:30 Troponin T 120 Minute 36.84 ng/L (0-15) H 12/17/24 00:50 Delta Troponin T -1.16 ABS# (0-10) L 12/17/24 00:50 NT-Pro-B Natriuret Pep 2207 pg/mL (0-125) H 12/16/24 22:30 Total Protein 7.7 g/dL (6.6-8.7) 12/16/24 22:30 Albumin 3.2 g/dL (3.5-5.2) L 12/16/24 22:30 Globulin 4.5 g/dL (1.3-4.6) 12/16/24 22:30 Urine Color Yellow (Yellow) 12/16/24 23:51 Urine Appearance Clear (CLEAR) 12/16/24 23:51 Urine pH 5.0 (5-7) 12/16/24 23:51 Ur Specific [place] 1.039 (1.005-1.030) H 12/16/24 23:51 Urine Protein 4+ (Negative) A 12/16/24 23:51 Urine Glucose (UA) Negative (Normal) 12/16/24 23:51 Urine Ketones Negative (Negative) 12/16/24 23:51 Urine Blood Negative (Negative) 12/16/24 23:51 Urine Nitrate Negative (Negative) 12/16/24 23:51 Urine Bilirubin Negative (Negative) 12/16/24 23:51 Urine Urobilinogen 1.0 mg/dL (Negative) 12/16/24 23:51 Ur Leukocyte Esterase Negative (Negative) 12/16/24 23:51 Urine RBC 3-5 /hpf (0-2) 12/16/24 23:51 Urine WBC 0-5 /hpf (0-5) 12/16/24 23:51 Ur Squamous Epith Cells 0-4 /hpf (0-5) H 12/16/24 23:51 Amorphous Sediment Not Reportable 12/16/24 23:51 Urine Bacteria None /hpf (NONE) 12/16/24 23:51 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 for Erwin Snow
--- NOTE | 2024-12-16 23:14 | XRR_ITS ---
PROCEDURE INFORMATION: Exam: XR Chest Exam date and time: 12/16/2024 11:18 PM Age: 74 years old Clinical indication: Chest pressure; C/O chest pain TECHNIQUE: Imaging protocol: Radiologic exam of the chest. Views: 1 view. COMPARISON: CR XR chest 1V portable [id number] 06/21/2024 3:20 PM FINDINGS: Lungs: Subtle interstitial opacification, substantially decreased from 06/21/2024, which may represent mild pulmonary vascular congestion. Pleural spaces: Unremarkable. No pleural effusion. No pneumothorax. Heart/Mediastinum: The heart is enlarged. Vasculature: Atherosclerotic changes of the aorta are noted. Bones/joints: Unremarkable. XR/XR chest 1V portable [id number] IMPRESSION: 1. Cardiomegaly. 2. Subtle interstitial opacification, which may represent mild pulmonary edema in the setting of cardiomegaly. Interstitial pneumonia is not completely excluded.
--- NOTE | 2024-12-16 23:14 | ECG_ITS ---
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 Measurements Intervals [place] Rate: 71 P: 0 MO: 0 QRS: -21 QRSD: 110 T: 134 QT: 379 QTc: 414 Interpretive Statements Normal Sinus Rhythm VENTRICULAR PREMATURE COMPLEXES SUPRAVENTRICULAR ECTOPIC BEATS BORDERLINE LEFT AXIS DEVIATION [QRS AXIS < -20] MODERATE VOLTAGE CRITERIA FOR LVH MODERATE T-WAVE ABNORMALITY, CONSIDER LATERAL ISCHEMIA VERSUS REPOLARIZATION ABNORMALITY FROM LVH Compared to ECG 06/22/2024 00:38:38 Ventricular and supraventricular premature complexes now present Electronically Signed On 12-17-2024 20:24:27 CDT by Rod Kerr M.D. [email or web address]
[2024-12-16 23:22] LABS: Hematocrit 37.5 % (37-53); Hemoglobin 12.70 g/dL (11.27-16.99); Mean Corpuscular HGB Conc 33.9 g/dL (30-55); Mean Corpuscular Hemoglobin 30.8 pg (27-33); Mean Corpuscular Volume 91.0 fl (82-101); Nucleated Red Blood Cells % 0 %; Platelet Count 490 10^3/cmm (157-399); Red Blood Count 4.12 10^6/uL (3.85-5.65); White Blood Count 14.53 10^3/uL (3.29-11.43)
--- NOTE | 2024-12-16 23:47 | CTR_ITS ---
PROCEDURE INFORMATION: Exam: CTA Chest With Contrast Exam date and time: 12/16/2024 11:57 PM Age: 74 years old Clinical indication: Pain and abnormal findings; Abnormal diagnostic tests; Elevated d-dimer; Chest pressure; Chest pain with elevated dimer; Additional info: Chest pain, elevated d dimer TECHNIQUE: Imaging protocol: Computed tomographic angiography of the chest with contrast. Exam focused on the arteries. 3D rendering (Not supervised by radiologist): MIP and/or 3D reconstructed images were created by the technologist. Radiation optimization: All CT scans at this facility use at least one of these dose optimization techniques: automated exposure control; mA and/or kV adjustment per patient size (includes targeted exams where dose is matched to clinical indication); or iterative reconstruction. Contrast material: OMNI 350; Contrast volume: 61 ml; Contrast route: INTRAVENOUS (IV); COMPARISON: CR (CHEST, ) 12/16/2024 11:18 PM RADIATION DOSE METRICS: Total DLP (mGy-cm): 461.94 FINDINGS: Pulmonary arteries: No acute pulmonary embolus is identified. Aorta: Moderate atherosclerotic changes of the thoracic aorta and its major branch vessels is noted. Lungs: Dependent atelectasis is noted in the lung bases. No acute pulmonary process is identified. Pleural spaces: Unremarkable. No pneumothorax. No pleural effusion. Heart: The heart is mildly enlarged. Coronary arteries: Moderate to severe three-vessel coronary atherosclerosis present. Lymph nodes: Unremarkable. No enlarged lymph nodes. Liver: Hepatic granulomas are present, likely sequela of prior infection or granulomatous changes. Bones/joints: Degenerative joint and disc disease is seen in the imaged spine. Striated vertebral bodies. Soft tissues: Unremarkable. CT/CT angio chest PE protcl [id number] IMPRESSION: 1. No acute pulmonary embolus or evidence of acute right heart strain. 2. Mild cardiomegaly. 3. Moderate to severe three-vessel coronary atherosclerosis. 4. No acute pulmonary process. 5. Findings, which may be suggestive renal osteodystrophy. Correlate with renal function.
[2024-12-16 23:52] LABS: Troponin(5th) Baseline 38 ng/L (0-15)
[2024-12-16 23:59] LABS: Alanine Aminotransferase 17 U/L (0-41); Albumin Level 3.2 g/dL (3.5-5.2); Alkaline Phosphatase 161 U/L (40-130); Anion Gap 18.4 (5-19); Aspartate Amino Transferase 17 U/L (0-40); Blood Urea Nitrogen 24 mg/dL (8-23); Calcium 10.1 mg/dL (8.5-10.5); Carbon Dioxide 20 mmol/L (22-29); Chloride 97 mmol/L (98-107); Creatinine Clr Calc Pharmacy 74.5586; Globulin 4.5 g/dL (1.3-4.6); Glucose 137 mg/dL (65-115); NT Pro B Type Natriuretic Pept 2207 pg/mL (0-125); Osmolality Calculated 278 mOsm/kg (285-295); Potassium 4.4 mmol/L (3.5-5.1); Sodium 131 mmol/L (136-145); Total Protein 7.7 g/dL (6.6-8.7)
[2024-12-17] VITALS (10 sets, daily range): BP systolic 140–178; BP diastolic 59–87; PULSE 66–87; RESP 14–23; TEMP 36.8–37.8; O2SAT 93–99; BMI 27.8; BMI 28.0; BMI 28.2
[2024-12-17 00:04] LABS: Glucose Urine UA Negative (Normal); Nitrate Urine Negative (Negative)
[2024-12-17 00:05] LABS: Specific Gravity, Urine 1.039 (1.005-1.030)
[2024-12-17] MEDS: heparin 5,000 unit/mL INJ 1 mL IVP (00:55)
[2024-12-17] MEDS: heparin drip 25,000 UNIT/500 ML PREMIX 25 UNIT IV (00:56)
[2024-12-17 01:11] LABS: Add Urine Microscopic? YES; UA Slide Review UA Slide Review Perf
--- NOTE | 2024-12-17 01:14 | ECG_ITS ---
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 Measurements Intervals [place] Rate: 74 P: -5 [place]: 175 QRS: -14 QRSD: 115 T: 93 QT: 380 QTc: 422 Interpretive Statements SINUS RHYTHM WITH OCCASIONAL VENTRICULAR PREMATURE COMPLEXES MODERATE INTRAVENTRICULAR CONDUCTION DELAY [110+ ms QRS DURATION] NONSPECIFIC T-WAVE ABNORMALITY Compared to ECG 12/16/2024 22:59:28 Intraventricular conduction delay now present NO SIGNIFICANT CHANGE Electronically Signed On 12-17-2024 20:37:15 CDT by Rod Kerr M.D. [email or web address]
[2024-12-17 01:26] LABS: Troponin 5 2HR 36.84 ng/L (0-15)
[2024-12-17 01:28] LABS: Troponin 5 2HR Delta -1.16 ABS# (0-10)
--- NOTE | 2024-12-17 01:51 | PM.HP ---
Providers/Chief Complaint Admitting Physician: Leny Romero MD--seen patient after 12 midnight Primary Care Provider: Samuel Cannon MD Chief Complaint: CP History of Present Illness Fabien Barakat is a 74 year old male with medical history significant for nicotine addiction with peripheral vascular disease. Patient had a vessel in the left lower extremity occluded to 75% and is going to be followed by Dr. Musa actually has an appointment to see Dr. Alva on 12/20/2024 for ongoing unstable angina and the left leg PVD. Patient presents today because of ongoing chest pain with no radiation and upon arrival to the emergency room it was noted that the patient also was in atrial fibrillation with controlled rates in the 70s. Patient had never had A-fib before. Cardiology on the case. Patient is on heparin drip both for the chest pains and PVD patient is not on any rate controlling medications because patient has stayed controlled without any medicine for A-fib at presentation Case discussed about cigarette smoking and the relationship between that and atherosclerosis/PAD PVD patient felt that he has smoked since as a teenager and that he is 74 years old and has no reason to stop smoking. Patient has not heel ulcer that is painful excruciating agony for him but he does not see the relationship. Review of Systems Narrative: External review upon 10 organ system reviewed with significant for cardiovascular disorder and disease process otherwise unremarkable Medications/Allergies Home Medications ?Medication ?Instructions ?Recorded ?Confirmed ?Last Taken ?Type albuterol sulfate 90 mcg/actuation 2 puff inhalation Q4H PRN 06/21/24 08/24/24 Unknown History aerosol inhaler Shortness Of Breath amlodipine 10 mg tablet 10 mg PO DAILY 06/21/24 08/24/24 06/21/24 History gabapentin 400 mg capsule 400 mg PO TID 06/21/24 08/24/24 06/21/24 History insulin degludec 200 unit/mL (3 15 unit SUBCUT BEDTIME 06/21/24 08/24/24 06/20/24 History mL) subcutaneous pen (Tresiba FlexTouch U-200 insulin) metformin 1,000 mg tablet 1,000 mg PO BID 06/21/24 08/24/24 Unknown History simvastatin 20 mg tablet 20 mg PO QPM 06/21/24 08/24/24 06/20/24 History furosemide 40 mg tablet (Lasix) 40 mg PO DAILY #30 tabs 06/23/24 08/24/24 Unknown Rx hydralazine 50 mg tablet 50 mg PO TID #90 tabs 06/23/24 08/24/24 Unknown Rx losartan 50 mg tablet 25 mg (1/2 x 50 mg) PO DAILY #30 06/23/24 08/24/24 Unknown Rx tabs potassium chloride 20 mEq 20 meq PO DAILY #30 tabs 06/23/24 08/24/24 Unknown Rx tablet,extended release(part/cryst) (Klor-Con M) CAM Boot to the Right #1 ea 06/24/24 12/11/24 Unknown Rx Post Op Shoe to the Right if #1 ea 06/24/24 12/11/24 Unknown Rx available mupirocin 2 % topical ointment 1 applic topical BID #22 grams 06/29/24 08/24/24 Unknown Rx hydrocodone 5 mg-acetaminophen 325 1 tab PO Q8H PRN pain 7 days #15 12/07/24 12/07/24 Unknown Rx mg tablet tabs sulfamethoxazole 800 1 tab PO BID #14 tabs 12/07/24 12/07/24 Unknown Rx mg-trimethoprim 160 mg tablet (Bactrim DS) amoxicillin 500 mg-potassium 1 tab PO BID #20 tabs 12/15/24 12/15/24 Unknown Rx clavulanate 125 mg tablet (Augmentin) Allergies Allergy/AdvReac Type Severity Reaction Status Date / Time No Known Allergies Allergy Verified 12/16/24 23:09 PFSH Acute PFSH: Medical History Hypertension Epistaxis Social History Smoking and tobacco/nicotine status: current every day tobacco/nicotine user Vitals/I&O/Wt Last Vital Signs Temp 99.1 F 12/16/24 23:04 Pulse 70 12/17/24 01:17 Resp 16 12/17/24 01:17 BP 153/84 12/17/24 01:17 Pulse Ox 96 12/17/24 01:17 O2 Del Method Room Air 12/17/24 01:17 12/16/24 12/16/24 12/17/24 14:59 22:59 06:59 Intake Total 0 / 0 Balance 0 / 0 Weight last 48 hrs Weight 87.861 kg Physical Exam Narrative: Patient is in bed and in pain relating to left heel ulcer primarily. Patient chest pain resolved in the emergency room and on heparin drip HEENT normocephalic atraumatic neck neck is supple cardiovascular heart rate is regular lungs are pretty much clear abdomen soft nontender nondistended unremarkable extremities are intact no edema has good pulses neurology has no focality lab studies lab studies reviewed and noted. Data 12/17/24 05:30 12/17/24 05:30 A&P Assessment and plan 1. Atrial fibrillation: 2. Ulcer of foot with necrosis of bone: 3. Peripheral neuropathy: 4. Diabetic ulcer of foot associated with diabetes mellitus due to underlying condition, with fat layer exposed: 5. Hypertension: 6. Unstable angina: Plan: #1 Unstable angina - Troponin negative delta within normal range - Patient with much comorbid condition with versus clotted off in the lower extremities and with discomfort and and problem with wound healing this is being handled with rhythm monitoring - Heparin drip to follow through and monitor with cardiology consultation with Dr. Aquino for PVD PAD unstable angina and new onset atrial fibrillation #2 New onset atrial fibrillation - Patient is rate controlled and did not have any symptomatology of palpitation or shortness of breath - This means that the patient does not know how long this atrial fibrillation has been with him - Anticoagulation is good though this is being used for other stents with patient condition at this time - Patient is a new patient of Dr. Fajardo who had not seen the patient yet neither has the patient seen the Dr. Fajardo before bed they have an appointment to see 12/20/2024 out patient prior to this hospitalization #3 Diabetic foot ulcer nonhealing left heel - Patient had 75% occlusion of the vessels of the left lower extremity - Dr. Fajardo has the information though yet to see patient outpatient as scheduled - Continue heparin drip for now cardiology sees the patient and follow-up - Wound care consult patient partakes in outpatient wound care #4 Nicotine addiction - Advised against cigarette smoking in the setting of PVD PAD and likely CAD with ongoing unstable angina - Patient will not stop smoking he said vehemently. Must continue to councel #5 Diabetes type 2 - Keep tight control for wound healing and for improved medical care #6 GI and DVT prophylaxis in place PDMP PDMP Reviewed: Not Reviewed Attestations Medical Necessity Statement*: Patient is with multiple acute medical problem requiring at least 2 midnights to optimize care patient is inpatient Coding Level of Care Code 37902 Diagnoses Atrial fibrillation I48.91 Ulcer of foot with necrosis of bone L97.504 Peripheral neuropathy G62.9 Diabetic ulcer of foot associated with diabetes mellitus due to underlying condition, with fat layer exposed E08.621; L97.502 Hypertension I10 Unstable angina I20.0 Time Spent (min) 60
[2024-12-17] MEDS: morphine 4 mg/mL SDV 1 mL IVP (02:16)
[2024-12-17 03:18] LABS: PCP Screen Urine Negative (Negative)
[2024-12-17] MEDS: pantoprazole 40 mg SDV IVP (03:54)
--- NOTE | 2024-12-17 04:17 | PC.NURSE ---
Patient arrived to room with complaints of pain in feet due to foot ulcers. Attempted to asses wounds, patient was uncooperative and would not let me unwrap dressing. Stated he sees wound care once a week. Patient using profanity towards staff, [facility] also threatening to get out of bed to walk to find a wheelchair so he could leave . Administered dose of Ketorolac IVP. Patient had emesis, family member at bedside was concerned it may have blood in it. Emesis noted to be dark brown in color. Notified Dr. Romero of concern and also asked if he could have something to help with nausea. Patient refusing to let staff help with basic care (applying socks, repositioning in bed) at this time, would allow only family member to help. Patient and family member did not voice any other concerns, bedside table and call light within reach. Currently still awaiting reply from
--- NOTE | 2024-12-17 05:14 | ECG_ITS ---
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 Measurements Intervals [place] Rate: 67 P: -16 SD: 188 QRS: -23 QRSD: 114 T: 114 QT: 385 QTc: 407 Interpretive Statements SINUS RHYTHM WITH OCCASIONAL VENTRICULAR PREMATURE COMPLEXES BORDERLINE LEFT AXIS DEVIATION [QRS AXIS < -20] MODERATE INTRAVENTRICULAR CONDUCTION DELAY [110+ ms QRS DURATION] LEFT VENTRICULAR HYPERTROPHYWITH REPOLARIZATION ABNORMALITY Compared to ECG 12/17/2024 01:37:43 Possible ischemia now present T-wave abnormality still present Electronically Signed On 12-17-2024 20:35:04 CDT by Rod Kerr M.D. [email or web address]
[2024-12-17 05:46] LABS: Hematocrit 35.3 % (37-53); Hemoglobin 11.90 g/dL (11.27-16.99); Mean Corpuscular HGB Conc 33.7 g/dL (30-55); Mean Corpuscular Hemoglobin 31.3 pg (27-33); Mean Corpuscular Volume 92.9 fl (82-101); Nucleated Red Blood Cells % 0 %; Platelet Count 420 10^3/cmm (157-399); Red Blood Count 3.80 10^6/uL (3.85-5.65); White Blood Count 13.90 10^3/uL (3.29-11.43)
[2024-12-17 06:04] LABS: Troponin 5 6HR 42.32 ng/L (0-15); Troponin 5 6HR Delta 4.32 ng/L (0-12)
[2024-12-17 06:41] LABS: Alanine Aminotransferase 16 U/L (0-41); Albumin Level 2.8 g/dL (3.5-5.2); Alkaline Phosphatase 153 U/L (40-130); Anion Gap 17.8 (5-19); Aspartate Amino Transferase 13 U/L (0-40); Blood Urea Nitrogen 25 mg/dL (8-23); Calcium 9.1 mg/dL (8.5-10.5); Carbon Dioxide 19 mmol/L (22-29); Chloride 101 mmol/L (98-107); Creatinine Clr Calc Pharmacy 75.1068; Globulin 3.1 g/dL (1.3-4.6); Glucose 165 mg/dL (65-115); Magnesium 1.9 mg/dL (1.7-2.3); Osmolality Calculated 284 mOsm/kg (285-295); Potassium 4.8 mmol/L (3.5-5.1); Sodium 133 mmol/L (136-145); Total Protein 5.9 g/dL (6.6-8.7)
[2024-12-17 07:43] LABS: Partial Thromboplastin Time 64.3 SECONDS (23.9-36.7)
--- NOTE | 2024-12-17 09:54 | ECG_ITS ---
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 Measurements Intervals [place] Rate: 71 P: -32 MT: 187 QRS: -25 QRSD: 110 T: 115 QT: 375 QTc: 410 Interpretive Statements SINUS RHYTHM LEFT AXIS DEVIATION MINIMAL VOLTAGE CRITERIA FOR LVH, CONSIDER NORMAL VARIANT [MEETS CRITERIA IN ONE OF: R(aVL), S(V1), R(V5), R(V5/V6)+S(V1)] MODERATE T-WAVE ABNORMALITY, CONSIDER LATERAL ISCHEMIA VERSUS SECONDARY TO LVH Compared to ECG 12/17/2024 06:22:16 Ventricular premature complexes no longer present Electronically Signed On 12-17-2024 19:01:17 CDT by Rod Kerr M.D. [email or web address]
[2024-12-17] MEDS: lidocaine 2% viscous 15 ML, aluminum-mag hydrox-simethicon 30 ML, sucralfate oral liq 1 GM PO (10:22)
[2024-12-17] MEDS: HYDROmorphone 0.5 MG/0.5 ML INJ 1 MG IVP (10:24)
--- NOTE | 2024-12-17 11:06 | CTR_ITS ---
PROCEDURE INFORMATION: Exam: CT Right Lower Extremity Without Contrast, Foot Exam date and time: 12/17/2024 2:22 PM Age: 74 years old Clinical indication: Pain; Foot; Right; Additional info: Pain swelling TECHNIQUE: Imaging protocol: CT of the right lower extremity without contrast was performed. Exam focused on the foot. Radiation optimization: All CT scans at this facility use at least one of these dose optimization techniques: automated exposure control; mA and/or kV adjustment per patient size (includes targeted exams where dose is matched to clinical indication); or iterative reconstruction. COMPARISON: 1. MR foot RT wo/w con [id number] 06/23/2024 10:30 AM 2. CR XR foot RT min 3V* [id number] 08/24/2024 2: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 No acute fracture is identified. There are degenerative changes in the ankle which are stable from the previous examination. Soft tissues: There is a small soft tissue defect or ulcer along the plantar aspect of the foot which is not seen on 06/21/2024. This only involves the skin in the superficial soft tissues. There are small plantar calcaneal spur and there is some calcification at the attachment of the Achilles tendon. There is mild generalized soft tissue edema less than on 06/21/2024. CT/CT foot RT wo con* [id number] IMPRESSION: 1. No acute fracture 2. Small soft tissue ulcer on the plantar aspect of the foot. Please correlate clinically. 3. No fluid collection or abscess is identified 4. No soft tissue gas is identified
--- NOTE | 2024-12-17 11:06 | CTR_ITS ---
PROCEDURE INFORMATION: Exam: CTA Abdominal Aorta and Bilateral Lower Extremities (Run-off) With Contrast Exam date and time: 12/17/2024 2:31 PM Age: 74 years old Clinical indication: Other: Pvd, rest pain, leg pain, foot cuco, decrease dppt pulse TECHNIQUE: Imaging protocol: Computed tomographic angiography of the of the abdominal aorta, pelvis and bilateral lower extremities with contrast. 3D rendering (Not supervised by radiologist): MIP and/or 3D reconstructed images were created by the technologist. Radiation optimization: All CT scans at this facility use at least one of these dose optimization techniques: automated exposure control; mA and/or kV adjustment per patient size (includes targeted exams where dose is matched to clinical indication); or iterative reconstruction. Contrast material: OMNI 350; Contrast volume: 100 ml; Contrast route: INTRAVENOUS (IV); COMPARISON: 1. [place] [id number] 12/07/2024 4:[address] lower leg RT w con [id number] 06/21/2024 8:17 PM RADIATION DOSE METRICS: Total DLP (mGy-cm): 1029.76 FINDINGS: Aorta: The aorta demonstrates moderate atherosclerotic calcification. There is no evidence of an abdominal aortic aneurysm. Celiac trunk and mesenteric arteries: There is some atherosclerotic calcification and mild stenosis of the origin of the celiac artery. There is atherosclerotic calcification involving the origin and proximal superior mesenteric artery causing moderate stenosis. There is also some atherosclerotic calcification with mild stenosis in the mid superior mesenteric artery. Inferior mesenteric artery is patent without stenosis. Renal arteries: There are 2 renal arteries on the left with atherosclerotic plaque at the origin of the larger artery causing moderate proximal stenosis and some atherosclerotic calcification causing mild stenosis of the accessory branch. There is a single renal artery on the right with early branching without stenosis. Right iliac arteries: There is atherosclerotic calcification and mild stenosis involving the right internal iliac artery and its branches with only mild stenosis. Right femoral/popliteal arteries: There is atherosclerotic calcification in the right common femoral artery which causes severe distal stenosis. There is moderate stenosis of the origin of the right superficial femoral artery. There are multiple areas of atherosclerotic plaque along the distal right superficial femoral artery with calcification and severe stenosis and short segment occlusion of the distal right superficial femoral artery near the distal end of the adductor canal. The distal right superficial femoral artery reconstitutes via collaterals. There is atherosclerotic plaque and mild stenosis of the right popliteal artery. Right infrapopliteal arteries: Right anterior tibial artery is occluded from its right anterior tibial artery is patent throughout its length and supplies the right dorsalis pedis artery. Right tibial peroneal trunk is patent. The right posterior tibial artery is distally stenotic. Right peroneal artery is patent to the ankle and feeds the posterior collateral vessel. Left iliac arteries: There is atherosclerotic calcification and severe stenosis proximal left internal iliac artery and atherosclerotic changes of the distal left internal iliac artery branches. There is atherosclerotic plaque of the origin of the left common iliac artery causing approximately 50% stenosis. There is severe atherosclerotic calcification of the mid to distal left common femoral artery causing very severe stenosis or short segment occlusion. Left femoral/popliteal arteries: There is focal moderate to severe stenosis of the origin of the left superficial femoral artery. There are multiple levels of mild to moderate stenosis along the length of the left superficial femoral artery. There is severe stenosis of the distal left superficial femoral artery at the distal end of the adductor canal. There are multiple areas of mild to moderate stenosis of the left popliteal artery and very severe stenosis of the distal left popliteal artery bordering on occlusion Left infrapopliteal arteries: Left anterior tibial artery is small and is occluded at the level of the mid to distal calf. Left tibial peroneal trunk is patent with atherosclerotic calcification and severe distal stenosis. Left posterior tibial artery is patent to the level of the ankle where there is atherosclerotic calcification and severe stenosis. Left peroneal artery is patent to the level of the ankle and this gives off collateral branches anteriorly and posteriorly. Left anterior tibial artery is not definitely identified. Lungs: Lung bases are clear. Liver: There is a diffuse decrease in hepatic parenchymal density, consistent with moderate fatty infiltration. The liver demonstrates punctate calcifications, consistent with remote granulomatous organism exposure. Gallbladder and biliary ducts: The gallbladder is normal. There is no common bile duct dilation. Pancreas: The pancreas is normal. Spleen: The spleen is normal. Adrenal glands: The adrenal glands are normal. Kidneys and ureters: There are small hypodensities in the cortex of both kidneys most likely small benign simple cysts, too small to definitively characterize by CT scanning. There is a 1.9 cm sized benign simple cyst arising from the lower pole of the right kidney. There is no evidence of hydronephrosis. There is no evidence of renal or ureteral calcifications. Stomach and bowel: There is no evidence of colitis/diverticulitis. There is no evidence of intestinal obstruction. There is no evidence of intestinal obstruction. Appendix: A normal appendix is identified. Urinary bladder: There is mild thickening of the wall urinary bladder which may be due to bladder wall hypertrophy. Reproductive: The prostate demonstrates moderate nonspecific enlargement. The seminal vesicles are normal. Intraperitoneal space: There is no evidence of free intraperitoneal fluid. There is no evidence of free intraperitoneal fluid. Lymph nodes: There is no evidence of lymphadenopathy. There is no evidence of lymphadenopathy. Bones/joints: There is atherosclerotic calcification right common iliac without significant stenosis. There is atherosclerotic calcification proximal left common iliac without stenosis. The lumbar spine demonstrates moderate degenerative changes at multiple levels. There is no evidence of acute fracture. There is bilateral L4 spondylolysis with approximately 6 mm of anterolisthesis at L4-L5. Soft tissues: There is small right inguinal hernia containing only fat. There is abnormal gas in the soft tissues along the plantar aspect of the posterior foot extending along the lateral aspect near the calcaneus. There is soft tissue ulcer posteromedial aspect of the left heel. There is soft tissue wound or ulcer posterior soft tissues of the right heel. CT/CT angio abd aorta runof [id number] IMPRESSION: 1. Findings worrisome for gas gangrene of the left foot 2. Bilateral heel ulcers 3. Peripheral vascular disease as described above with findings including occlusion of the distal left common femoral artery Severe stenosis of the distal left superficial femoral artery and also of the distal left popliteal artery, and occlusion of the distal right superficial femoral artery. 4. Left renal artery stenosis 5. Moderate superior mesenteric artery stenosis 6. Fatty liver
--- NOTE | 2024-12-17 11:06 | CTR_ITS ---
PROCEDURE INFORMATION: Exam: CT Left Lower Extremity Without Contrast, Foot Exam date and time: 12/17/2024 2:25 PM Age: 74 years old Clinical indication: Pain; Foot; Left; Additional info: Pain, swelling TECHNIQUE: Imaging protocol: CT of the left lower extremity without contrast was performed. Exam focused on the foot. Radiation optimization: All CT scans at this facility use at least one of these dose optimization techniques: automated exposure control; mA and/or kV adjustment per patient size (includes targeted exams where dose is matched to clinical indication); or iterative reconstruction. COMPARISON: CR (LOW EXM, ) 12/11/2024 2:28 PM RADIATION DOSE METRICS: Total DLP (mGy-cm): 153.26 FINDINGS: Bones/joints: No fracture or specific destructive lesion is seen in the foot to suggest active osteomyelitis. Soft tissues: There is diffuse subcutaneous edema throughout the foot especially along the posterior and plantar aspect of the heel. There are bubbles of abnormal soft tissue gas in the plantar soft tissues extending along the lateral aspect of the posterior foot consistent with gas gangrene. There is also a prominent soft tissue ulcer along posteromedial aspect of the heel. There is some radiopaque material within this ulcer which may represent dressing or ointment in the wound appears to be packed with gauze. Other findings: There is no fluid collection to suggest presence of abscess. CT/CT foot LT wo con* [id number] IMPRESSION: 1. Findings concerning for gas gangrene posterior left foot 2. There is a ulcer posteromedial left heel 3. Subcutaneous edema but no abscess is identified 4. No fracture COMMENTS: THIS REPORT CONTAINS FINDINGS THAT MAY BE CRITICAL TO PATIENT CARE. The findings were verbally communicated via telephone conference with KYLAH STARKEY at 5:39 PM CDT on 12/17/2024. The findings were acknowledged and understood.
--- NOTE | 2024-12-17 11:38 | XRR_ITS ---
PROCEDURE INFORMATION: Exam: XR Thoracic Spine Exam date and time: 12/17/2024 2:37 PM Age: 74 years old Clinical indication: Pain in thoracic spine; Additional info: Fall pain TECHNIQUE: Imaging protocol: Radiologic exam of the thoracic spine. Views: 3 views. COMPARISON: CT angio abd aorta runof [id number] 12/17/2024 2:31 PM FINDINGS: Bones/joints: Mild scoliosis and kyphosis. Mild multilevel spondylosis. Partial spinal ankylosis. Otherwise, unremarkable. Soft tissues: Unremarkable. XR/XR thoracic spine 2V [id number] IMPRESSION: 1. No acute findings. 2. Additional details as above.
--- NOTE | 2024-12-17 11:38 | XRR_ITS ---
PROCEDURE INFORMATION: Exam: XR Lumbosacral Spine Exam date and time: 12/17/2024 2:37 PM Age: 74 years old Clinical indication: Pain; Lumbago; Additional info: Fall pain TECHNIQUE: Imaging protocol: Radiologic exam of the lumbosacral spine. Views: 2 or 3 views. COMPARISON: CR XR lumbar spine 2-3V* [id number] 11/29/2022 9:52 PM FINDINGS: Bones/joints: 3 mm retrolisthesis of L1. 6 mm retrolisthesis of L2. 8 mm anterolisthesis of L4. Minimal or mild degenerative disc disease at all levels. Otherwise, unremarkable. Soft tissues: Otherwise, unremarkable soft tissues. Vasculature: Arterial calcification. XR/XR lumbar spine 2-3V* [id number] IMPRESSION: 1. No acute findings. 2. Additional details as above.
--- NOTE | 2024-12-17 11:38 | PHA.VACGOAL ---
Vancomycin Goal - Goal Vancomycin Goal:: 10-15 mg/L Vancomycin Indication:: SSTI - Therapy Day of therpy:: Day []of [] . Actual body weight (kg): 196 lb 14.4 oz - Data Labs: WBC 13.90 10^3/uL (3.29-11.43) H 12/17/24 05:30 RBC 3.80 10^6/uL (3.85-5.65) L 12/17/24 05:30 Hgb 11.90 g/dL (11.27-16.99) 12/17/24 05:30 Hct 35.3 % (37-53) L 12/17/24 05:30 MCV 92.9 fl (82-101) 12/17/24 05:30 MCH 31.3 pg (27-33) 12/17/24 05:30 MCHC 33.7 g/dL (30-55) 12/17/24 05:30 RDW 15.1 % (12.1-15.1) 12/17/24 05:30 Sodium 133 mmol/L (136-145) L 12/17/24 05:30 Potassium 4.8 mmol/L (3.5-5.1) 12/17/24 05:30 Chloride 101 mmol/L (98-107) 12/17/24 05:30 Carbon Dioxide 19 mmol/L (22-29) L 12/17/24 05:30 Anion Gap 17.8 (5-19) 12/17/24 05:30 BUN 25 mg/dL (8-23) H 12/17/24 05:30 Creatinine 1.0 mg/dL (0.7-1.2) 12/17/24 05:30 GFR Calculation Not Reportable 12/17/24 05:30 Treatment plan:: new consult Regimen:: PT HAS DIABETIC FOOT ULCER 1500 MG NOW 1250 MG Q12H
--- NOTE | 2024-12-17 11:58 | PC.CHAP ---
Pastoral Care Encounter/Spiritual Assessment Type of Contact [x] Declined profile saw setup operator visit [] Patient/Family/Request visit [] Outpatient visit [] Follow-up visit [] Physician referral [] Code/Alert [x] Routine visit [] Staff referral [] Actively dying [] Patient sleeping [] Family support [] [] Out of room [] Palliative care [] [] Receiving care in room [] Pre-surgical visit [] Trauma [] Long length of stay [] ICU visit [] Other: Relational/Emotional Strength [] Patient feels connected with others/family/visitors/staff [] Distress [] Loneliness/isolation [] Abandonment Spirituality of Patient [] Person of Ragini [] Attends Baptism of their Ragini [] Believes in Prayer [] Reads Bible or Zoroastrian materials [] There are Spiritual issues to be addressed Conditioning Yard Supervisor Interventions [] Prayer [] Active listening [] Non-anxious presence [] Spiritual/emotional support [] Crisis/trauma care [] Spiritual counseling [] Bereavement support [] Provided bereavement packet [] Provided Bible/devotional materials [] Provided toy/stuffed animal, coloring book to patient or family member [] Provided Communion [] Anointing/Archbold [] Salvation [] Completed spiritual assessment [] Other: Impact on Illness or Injury [] Angry [] Fearful [] Anxious [] Often cries [] Exhaustion [] Unable to work [] Unable to attend religion [] Unable to walk/stand [] Unable to read [] Unable to drive [] Unable to eat/drink [] Unable to sleep [] Unable to be with family [] Patient intubated [] Other: Summary Time spent with patient
[2024-12-17] MEDS: cefTRIAXone 1,000 mg SDV 1000 MG IVP (12:38)
--- NOTE | 2024-12-17 12:40 | P.PN_ITS ---
Subjective 2 Subjective: Patient was seen this morning, patient's is at bedside, currently alert oriented x 3, following all commands, currently his major complaint is bilateral lower extremity pain, pain in bilateral feet, reports rest pain, he has peripheral vascular disease, is a smoker, he is also reporting intermittent chest discomfort, denies a cardiovascular history, he tells me that he had a arterial ultrasound and he was told he had a 75% blockage somewhere?, He has not followed up with cardiology as of yet, continues to have bilateral extremity pain, he has bilateral extremity diabetic ulcers managed by wound care/Dr. Marshall, Vitals/I&O/Wt Last Vital Signs Temp 98.4 F 12/17/24 07:24 Pulse 71 12/17/24 07:24 Resp 14 12/17/24 07:24 BP 140/79 12/17/24 07:24 Pulse Ox 93 12/17/24 07:24 O2 Del Method Room Air 12/17/24 03:35 12/16/24 12/17/24 12/17/24 22:59 06:59 14:59 Intake Total 0 / 0 171.25 / 171.25 Balance 0 / 0 171.25 / 171.25 Weight last 48 hrs Weight 89.312 kg Weight 88.541 kg Weight 87.861 kg Weight 87.861 kg Physical Exam 2 Const: COMMON NORMALS: no acute distress and patient oriented x3 Resp: COMMON NORMALS: normal respiratory effort, No retractions, No use of accessory muscles and clear to auscultation bilaterally AUSCULTATION: clear to auscultation bilaterally Cardio: COMMON NORMALS: regular rate, regular rhythm, S1 normal heart sound present and S2 normal heart sound present RATE: regular rate RHYTHM: r egular rhythm HEART SOUNDS: S1 normal heart sound present and S2 normal heart sound present GI: COMMON NORMALS: Normal to inspection, nondistended, normoactive bowel sounds present and non-tender Extremity: COMMON NORMALS: no pedal edema NARRATIVE EXTREMITY EXAM: Bilateral lower extremities, DP PT pulses palpable, but diminished, no skin discoloration but lower extremities are cool to touch, Left leg, superficial diabetic ulcer with surrounding erythema, measuring 1 x 1 cm, lateral aspect Right leg, healed, superficial diabetic ulcer, measuring 1 x 1 cm with surrounding erythema Neuro: COMMON NORMALS: patient oriented x3, CN's II-XII intact bilaterally and moves all extremities Psych: COMMON NORMALS: mental status grossly normal Data 12/17/24 05:30 12/17/24 05:30 A&P Assessment and plan 1. Hypertension: 2. Atrial fibrillation: 3. Unstable angina: 4. Diabetic foot ulcer: 5. Diabetic ulcer of foot associated with diabetes mellitus due to underlying condition, with fat layer exposed: 6. Cellulitis: 7. Peripheral neuropathy: 8. Acute lower limb ischemia: 9. Osteomyelitis: Plan: Unstable angina - Serial EKGs, serial troponins, telemetry monitoring - 6-hour troponin 42.3, T wave changes in lateral leads Plan - Aspirin, statin - Cardiac echo - Heparin drip - Cardiology consulted Acute versus chronic lower limb ischemia - DP PT pulses are diminished, but palpable, does complain of bilateral lower extremity rest pain, no pallor, Arterial ultrasound on 12/07/2024 -No alarm symptoms as lack of pulses, or acutely blue/[place] extremities US/[id number] IMPRESSION: Stenosis in the 75-99% range left common femoral artery. JOSELINE indicates moderate to severe peripheral arterial disease left lower extremity. Monophasic waveforms and spectral broadening l throughout the left lower extremity. Plan - Active rewarming - Continue to Doppler DP PT pulses - Aspirin, statin - Heparin drip -Dilaudid for pain control - Cardiology consulted - Aortogram ordered - IV fluids Bilateral lower extremities diabetic ulcers - With concerns for cellulitis Plan - CT bilateral extremities - Vancomycin - Rocephin Current smoker, smoking cessation counseling Type 2 diabetes mellitus, low-dose sliding scale Atrial fibrillation seen on EKG - Heparin drip - Cardiology consulted PDMP PDMP Reviewed: Not Reviewed Attestations 2 Medical Necessity Statement*: Patient requires hospitalization, for concerns for acute lower limb ischemia, unstable angina, bilateral extremity diabetic ulcers, current smoker, atrial fibrillation Diagnoses Hypertension I10 Atrial fibrillation I48.91 Unstable angina I20.0 Diabetic foot ulcer E11.621; L97.509 Diabetic ulcer of foot associated with diabetes mellitus due to underlying condition, with fat layer exposed E08.621; L97.502 Cellulitis L03.90 Peripheral neuropathy G62.9 Acute lower limb ischemia I99.8 Osteomyelitis M86.9
--- NOTE | 2024-12-17 12:56 | PM.CONSULT ---
Providers/Reason For Consult Consulting Physician/Specialty*: Dr. Rod Kerr Reason for Consult*: Chest pain Requesting Physician: Dr. Bjorn Ford Attending Physician: Bjorn Ford MD Primary Care Provider: Samuel Cannon MD History of Present Illness History of Present Illness Fabien Barakat is a 74 year old male with a history of smoking, insulin-dependent diabetes mellitus and hypertension who was hospitalized June 22, 2024 for lower extremity cellulitis and was found to have new onset congestive heart failure with mildly reduced ejection fraction of 50%. The patient was seen by the cardiology service who recommended IV diuresis and better blood pressure management. The patient was also recommended to have a stress test which the patient preferred to have as an outpatient. The patient did not follow-up for outpatient office visit and never had the stress test performed. Since that time the patient has been seen by podiatry and wound care for a nonhealing diabetic heel ulcer. Arterial duplex on 12/07/2024 showed severe reduced blood flow in the left lower extremity. The patient presented to the emergency room last evening with complaints of bilateral foot and leg pain as well as chest pain. The patient states he thinks he has reflux and often Tums make his chest pain better. He has chronic HAMILTON. Review of Systems Card: Reports: chest pain and dyspnea on exertion; Denies: palpitations, irregular heart rhythm, edema or lightheadedness Medications/Allergies Home Medications ?Medication ?Instructions ?Recorded ?Confirmed ?Last Taken ?Type albuterol sulfate 90 mcg/actuation 2 puff inhalation Q4H PRN 06/21/24 12/17/24 Unknown History aerosol inhaler Shortness Of Breath amlodipine 10 mg tablet 10 mg PO DAILY 06/21/24 12/17/24 12/16/24 History gabapentin 400 mg capsule 400 mg PO TID 06/21/24 12/17/24 12/16/24 History insulin degludec 200 unit/mL (3 15 unit SUBCUT BEDTIME 06/21/24 12/17/24 12/15/24 History mL) subcutaneous pen (Tresiba FlexTouch U-200 insulin) metformin 1,000 mg tablet 1,000 mg PO BID 06/21/24 12/17/24 Unknown History simvastatin 20 mg tablet 20 mg PO QPM 06/21/24 12/17/24 12/15/24 19:00 History CAM Boot to the Right #1 ea 06/24/24 12/17/24 Unknown Rx Post Op Shoe to the Right if #1 ea 06/24/24 12/17/24 Unknown Rx available amoxicillin 500 mg-potassium 1 tab PO BID #20 tabs 12/15/24 12/17/24 12/16/24 Rx clavulanate 125 mg tablet (Augmentin) hydrocodone 10 mg-acetaminophen 1 tab PO TID 12/17/24 12/17/24 12/16/24 History 325 mg tablet irbesartan 300 1 tab PO DAILY 12/17/24 12/17/24 12/16/24 History mg-hydrochlorothiazide 12.5 mg tablet Allergies Allergy/AdvReac Type Severity Reaction Status Date / Time No Known Allergies Allergy Verified 12/16/24 23:09 Current Medications Generic Name Dose Route Start Last Admin Trade Name Freq PRN Reason Stop Dose Admin Aspirin 81 mg 12/17/24 11:10 12/17/24 12:38 Aspirin 81 Mg Ec Tablet PO 81 mg DAILY SAEED Administration Ceftriaxone Sodium 1,000 mg 12/17/24 11:15 12/17/24 12:38 Ceftriaxone 1,000 Mg Sdv IVP 1,000 mg Q24H SAEED Administration Protocol Hydromorphone HCl 1 mg 12/17/24 09:52 12/17/24 10:24 Hydromorphone 0.5 Mg/0.5 Ml Inj IVP 1 mg Q4H PRN Administration PAIN Heparin Sodium/Sodium Chloride 25,000 unit in 500 mls @ 0 mls/hr 12/16/24 23:30 12/17/24 07:47 Heparin Drip IV 14.23 unit/kg/hr CONT SAEED 25 mls/hr Protocol Titration Per Protocol Sodium Chloride 1,000 mls @ 75 mls/hr 12/17/24 03:31 12/17/24 03:56 Sodium Chloride 0.9% IV 75 mls/hr .[id number] SAEED Administration Vancomycin HCl 1,500 mg in 300 mls @ 200 mls/hr 12/17/24 11:30 12/17/24 12:40 Vancocin IV 12/17/24 12:59 200 mls/hr ONCE ONE Administration Insulin Human Lispro 0 unit 12/17/24 08:00 12/17/24 12:39 Insulin Lispro 100 Unit/1 Ml SUBCUT 2 unit WM&BEDTIME SAEED Administration Protocol Ketorolac Tromethamine 30 mg 12/17/24 03:31 12/17/24 03:55 Ketorolac 30 Mg/Ml Inj IVP 12/22/24 03:30 30 mg ONCE PRN Administration MODERATE PAIN Nicotine 1 patch 12/17/24 10:00 12/17/24 10:25 Nicotine 21 Mg Patch TRANSDERMA 1 patch DAILY SAEED Administration Pantoprazole Sodium 40 mg 12/17/24 03:31 12/17/24 03:54 Pantoprazole 40 Mg Sdv IVP 40 mg Q24H SAEED Administration PFSH Acute PFSH: Medical History (Updated 12/17/24 @ 13:17 by Rod Kerr MD) Hypertension Epistaxis Social History Smoking and tobacco/nicotine status: current every day tobacco/nicotine user Vitals/I&O/Wt Last Vital Signs Temp 98.4 F 12/17/24 07:24 Pulse 71 12/17/24 07:24 Resp 14 12/17/24 07:24 BP 140/79 12/17/24 07:24 Pulse Ox 93 12/17/24 07:24 O2 Del Method Room Air 12/17/24 03:35 12/16/24 12/17/24 12/17/24 22:59 06:59 14:59 Intake Total 0 / 0 171.25 / 171.25 Balance 0 / 0 171.25 / 171.25 Weight last 48 hrs Weight 196 lb 14.4 oz Weight 195 lb 3.2 oz Weight 193 lb 11.2 oz Weight 193 lb 11.2 oz Physical Exam Narrative: General: In no acute distress Neck: No jugular venous distention Heart: Normal S1 and S2 with a regular rate and rhythm, no cardiac murmurs Lungs: Normal respiratory effort with no use of intercostal muscles, clear lungs sounds to auscultation Extremities: No lower extremity edema. Diminished peripheral pulses. bilateral diabetic ulcers Neuro: Alert and oriented x 3 Data 12/17/24 05:30 12/17/24 05:30 Other Labs: All 4 EKGs personally interpreted since admission and compared to last EKG in June 2024. Despite the EKG reporting atrial fibrillation, the patient has been in sinus rhythm. There is no atrial fibrillation. The patient has minor voltage criteria for LVH with some lateral T wave inversion which is chronic which could be just repolarization abnormality from the LVH. No acute ST-T wave abnormalities compared to prior EKG in June 2024. Other data: Left lower extremity arterial duplex 12/07/2024: Stenosis in the 75-99% range left common femoral artery. JOSELINE indicates moderate to severe peripheral arterial disease left lower extremity. Monophasic waveforms and spectral broadening l throughout the left lower extremity. A&P Assessment and plan 1. Hypertension: Blood pressure stable Continue amlodipine and irbesartan/hydrochlorothiazide 2. Diabetic ulcer of foot associated with diabetes mellitus due to underlying condition, with fat layer exposed: Nonhealing related to peripheral arterial disease 3. Chronic heart failure with mildly reduced ejection fraction (HFmrEF): History of EF 50% Currently appears euvolemic but NT BNP elevated at 2207 Obtain echocardiogram to guide guideline directed medical therapy continue irbesartan/hctz 4. Non-STEMI (non-ST elevated myocardial infarction): Mildly elevated troponin Now chest pain-free Continue IV heparin CT angio chest with multivessel coronary artery disease Will need left heart catheterization Start aspirin 81 mg daily Continue statin 5. Peripheral arterial disease: 75% to 99% left lower extremity stenosis per arterial duplex December 07, 2024 Patient with bilateral leg pain Obtaining CT angiogram of lower extremities today Currently with reduced pulses but still palpable Will discuss with Dr. Alva timing for left heart catheterization and lower extremity angiogram 6. Tobacco dependence: Patient currently not interested in quitting smoking PDMP PDMP Reviewed: Not Reviewed Coding Level of Care Code 42196 Diagnoses Hypertension I10 Diabetic ulcer of foot associated with diabetes mellitus due to underlying condition, with fat layer exposed E08.621; L97.502 Chronic heart failure with mildly reduced ejection fraction (HFmrEF) I50.22 Non-STEMI (non-ST elevated myocardial infarction) I21.4 Peripheral arterial disease I73.9 Tobacco dependence F17.200
[2024-12-17 13:24] LABS: Partial Thromboplastin Time 51.1 SECONDS (23.9-36.7)
--- NOTE | 2024-12-17 13:24 | USCV_ITS ---
Yuval Fabien Age: 74 Gender: M : 1950 Exam Date: 12/17/2024 17:22 Ordering Phys: Rod Kerr MD ([email or web address]) Technologist: THERESA [place] [facility] [place] Indication: chf BP: 153 / 65 HR: 81 Rhythm: Sinus Technical Quality: Adequate MEASUREMENTS (Male / Female) Normal Values 2D ECHO LV Diastolic Diameter PLAX 5.0 cm 4.2 - 5.9 / 3.9 - 5.3 cm IVS Diastolic Thickness 1.1 cm 0.6 - 1.0 / 0.6 - 0.9 cm IVS Systolic Thickness 1.5 cm LVPW Diastolic Thickness 1.0 cm 0.6 - 1.0 / 0.6 - 0.9 cm LVPW Systolic Thickness 1.3 cm LVOT Diameter 2.1 cm LV Ejection Fraction 2D Teich 52.8 % LV Ejection Fraction MOD 4C 58.9 % LV Ejection Fraction MOD 2C 66.1 % LV Ejection Fraction 2C AL 65.5 % LA Diameter 4.4 cm RA Systolic Volume 4C AL 42.5 ml RA Systolic Volume 4C MOD 38.8 ml LA Sys Volume AL 59.8 cm cubed LA Sys Volume Index AL 28.3 cm cubed/m squared Aorta at Sinotubular Diameter 2.6 cm IVC Diameter 1.9 cm M-MODE LA Ao Ratio MM 1.5 AV Cusp Separation MM 1.7 cm DOPPLER AV Peak Velocity 144.0 cm/s LVOT Peak Velocity 109.0 cm/s AV Area Cont Eq vti 1.9 cm squared AV Area Cont Eq pk 2.5 cm squared MV Peak Velocity 107.0 cm/s MV Area PHT 5.3 cm squared Mitral E to A Ratio 0.7 TR Peak Velocity 331.0 cm/s TR Peak Gradient 43.8 mmHg TR Mean Velocity 259.0 cm/s TR Mean Gradient 29.7 mmHg TR Velocity Time Integral 85.3 cm PV Peak Velocity 91.0 cm/s RV Ejection Time 0.3 s FINDINGS Left Ventricle Mild hypertrophy of the septum. Normal left ventricular cavity size. Regional wall motion abnormality with hypokinesis of the mid and basal inferior and inferolateral wall segments. Globally, normal LV systolic function with EF of 53%.Grade I/IV diastolic dysfunction (abnormal relaxation filling pattern), normal to mildly elevated filling pressures. Right Ventricle Normal right ventricular size and systolic function. RVSP could not be calculated due to incomplete tricuspid regurgitation velocity profile. Right Atrium Normal right atrial size. Left Atrium Normal left atrial size. Mitral Valve Structurally normal mitral valve. No mitral valve stenosis. Trace mitral valve regurgitation. Aortic Valve No aortic valve stenosis. No aortic valve regurgitation. Tricuspid Valve Trace tricuspid valve regurgitation. Pulmonic Valve No pulmonary valve stenosis. No pulmonary valve regurgitation. Pericardium No pericardial effusion. Aorta Normal size aortic root and proximal ascending aorta. IVC Normal inferior vena cava. CONCLUSIONS 1. Segmental wall motion abnormality of the left ventricle with hypokinesis of the mid and basal inferior and inferolateral wall segments. Globally, normal LV systolic function with EF of 53%. 2. No significant valvular abnormalities. Rod Kerr MD, FACC (Electronically Signed) Final Date: 17 December 2024 19:56 S
[2024-12-17 13:31] LABS: Troponin T (5th) Once 37 ng/L (0-15)
[2024-12-17 13:39] LABS: Procalcitonin 2.89 ng/mL (0-0.5)
[2024-12-17] MEDS: iohexol 350 mg/mL 500 mL Btl (per mL) IV ×2 (14:32)
[2024-12-17] MEDS: HYDROcodone-acetaminophen 5-325 mg Tablet 1 TAB PO (15:18)
--- NOTE | 2024-12-17 16:14 | PM.CONSULT ---
Providers/Reason For Consult Consulting Physician/Specialty*: Hao Plummer MD/orthopedic surgery Reason for Consult*: Nonhealing left heel wound Attending Physician: Bjorn Ford MD Primary Care Provider: Samuel Cannon MD History of Present Illness History of Present Illness Fabien Barakat is a 74 year old male has a lengthy history of nonhealing diabetic foot ulcer on the left foot/heel region. He has been seen by podiatry as wound care clinic as far back as August of this year. Multiple notes indicate he has been noncompliant to his treatment plans. Patient is been a longtime smoker and verbally states he does not wish to quit after smoking since he was a teenager however he is has significant cardiovascular disease as well as peripheral vascular disease. 1 note indicates that he has at least 75% occlusion of the common femoral artery to his left lower extremity. Podiatry notes indicates that he has osteomyelitis in his left foot also. Patient was recently admitted through the ER secondary to chest pain and cardiac event but has complaints of nonhealing ulcers on both feet. Patient just completed CTs of his feet, awaiting results. Dr. Polanco indicated that he was going to have cardiology see the patient for possible catheterization to evaluate cardiac as well as lower extremity blood flow. Review of Systems General: Reports: 10 or more systems reviewed and unremarkable except in HPI and below Narrative: External review upon 10 organ system reviewed with significant for cardiovascular disorder and disease process otherwise unremarkable Const: Denies: fever(s), chills or body aches ENMT: Denies: throat pain or dry mouth Card: Reports: chest pain and dyspnea on exertion; Denies: palpitations, irregular heart rhythm, edema or lightheadedness Resp: Denies: dyspnea, productive cough or non-productive cough GI: Denies: abdominal pain, nausea or vomiting : Denies: flank pain or difficulty urinating Musc: Denies: neck pain or back pain Skin/Breast: Denies: rash or pruritus Neuro: Denies: headache(s) Psych: Denies: anxiety or depression Tony/Lymph: Reports: easy bruising and easy bleeding Medications/Allergies Home Medications ?Medication ?Instructions ?Recorded ?Confirmed ?Last Taken ?Type albuterol sulfate 90 mcg/actuation 2 puff inhalation Q4H PRN 06/21/24 12/17/24 Unknown History aerosol inhaler Shortness Of Breath amlodipine 10 mg tablet 10 mg PO DAILY 06/21/24 12/17/24 12/16/24 History gabapentin 400 mg capsule 400 mg PO TID 06/21/24 12/17/24 12/16/24 History insulin degludec 200 unit/mL (3 15 unit SUBCUT BEDTIME 06/21/24 12/17/24 12/15/24 History mL) subcutaneous pen (Tresiba FlexTouch U-200 insulin) metformin 1,000 mg tablet 1,000 mg PO BID 06/21/24 12/17/24 Unknown History simvastatin 20 mg tablet 20 mg PO QPM 06/21/24 12/17/24 12/15/24 19:00 History CAM Boot to the Right #1 ea 06/24/24 12/17/24 Unknown Rx Post Op Shoe to the Right if #1 ea 06/24/24 12/17/24 Unknown Rx available amoxicillin 500 mg-potassium 1 tab PO BID #20 tabs 12/15/24 12/17/24 12/16/24 Rx clavulanate 125 mg tablet (Augmentin) hydrocodone 10 mg-acetaminophen 1 tab PO TID 12/17/24 12/17/24 12/16/24 History 325 mg tablet irbesartan 300 1 tab PO DAILY 12/17/24 12/17/24 12/16/24 History mg-hydrochlorothiazide 12.5 mg tablet Allergies Allergy/AdvReac Type Severity Reaction Status Date / Time No Known Allergies Allergy Verified 12/16/24 23:09 Current Medications Generic Name Dose Route Start Last Admin Trade Name Freq PRN Reason Stop Dose Admin Hydrocodone Bitart/Acetaminophen 1 tab 12/17/24 14:40 12/17/24 15:18 Hydrocodone-Acetaminophen 5-325 Mg Tablet PO 1 tab Q4H PRN Administration MODERATE PAIN Aspirin 81 mg 12/17/24 11:10 12/17/24 12:38 Aspirin 81 Mg Ec Tablet PO 81 mg DAILY SAEED Administration Ceftriaxone Sodium 1,000 mg 12/17/24 11:15 12/17/24 12:38 Ceftriaxone 1,000 Mg Sdv IVP 1,000 mg Q24H SAEED Administration Protocol Gabapentin 400 mg 12/17/24 15:00 12/17/24 14:13 Gabapentin 400 Mg Capsule PO 400 mg TID SAEED Administration Heparin Sodium/Sodium Chloride 25,000 unit in 500 mls @ 0 mls/hr 12/16/24 23:30 12/17/24 13:55 Heparin Drip IV 15.37 unit/kg/hr CONT SAEED 27 mls/hr Protocol Titration Per Protocol Sodium Chloride 1,000 mls @ 75 mls/hr 12/17/24 03:31 12/17/24 13:43 Sodium Chloride 0.9% IV 75 mls/hr .[id number] SAEED Administration Insulin Human Lispro 0 unit 12/17/24 08:00 12/17/24 12:39 Insulin Lispro 100 Unit/1 Ml SUBCUT 2 unit WM&BEDTIME SAEED Administration Protocol Ketorolac Tromethamine 30 mg 12/17/24 03:31 12/17/24 03:55 Ketorolac 30 Mg/Ml Inj IVP 12/22/24 03:30 30 mg ONCE PRN Administration MODERATE PAIN Nicotine 1 patch 12/17/24 10:00 12/17/24 10:25 Nicotine 21 Mg Patch TRANSDERMA 1 patch DAILY SAEED Administration Pantoprazole Sodium 40 mg 12/17/24 03:31 12/17/24 03:54 Pantoprazole 40 Mg Sdv IVP 40 mg Q24H SAEED Administration PFSH Acute PFSH: Medical History (Updated 12/17/24 @ 16:20 by Hao Plummer MD) Hypertension Epistaxis Social History Smoking and tobacco/nicotine status: current every day tobacco/nicotine user Vitals/I&O/Wt Last Vital Signs Temp 98.4 F 12/17/24 07:24 Pulse 71 12/17/24 07:24 Resp 14 12/17/24 07:24 BP 140/79 12/17/24 07:24 Pulse Ox 93 12/17/24 07:24 O2 Del Method Room Air 12/17/24 03:35 12/17/24 12/17/24 12/17/24 06:59 14:59 22:59 Intake Total 0 / 0 1058.333 / 1058.333 Balance 0 / 0 1058.333 / 1058.333 Weight last 48 hrs Weight 196 lb 14.4 oz Weight 195 lb 3.2 oz Weight 193 lb 11.2 oz Weight 193 lb 11.2 oz Physical Exam Narrative: Brief exam with the patient in bed. Patient is complaining of discomfort in his lower extremity on the left. He does have socks on however there is drainage coming through there in the calcaneal region of this. By history and review of medical records there is no need to evaluate the wound for possible debridement. Data 12/17/24 05:30 12/17/24 05:30 Micro: Microbiology 12/17/24 13:00 Blood Culture - Preliminary Blood SPECIMEN COLLECTED 12/17/24 13:01 Blood Culture - Preliminary Blood SPECIMEN COLLECTED A&P Assessment and plan 1. Peripheral arterial disease: 2. Acute lower limb ischemia: 3. Non-healing open wound of heel, unspecified laterality, initial encounter: Patient has nearly 1/2-year history of nonhealing ulcer of the left heel region. He has been treated by podiatry as well as wound care clinics. He has had vascular studies in the past demonstrating poor blood flow to the left lower extremity. He is being seen in wound care clinic every week since at least August. Multiple notes indicate that he has been noncompliant to the treatment plan. Plan: I will await the final results of the CT scans of his lower extremities and feet however, the definitive answer for this right now is below-knee amputation especially on the left possibly above-knee amputation depending on what the vascular studies indicate. Further debridement of these wounds will not eradicate the osteomyelitis has been identified before in the past and there is no good tissue to use for coverage of these wounds therefore grafting is out of the question. Due to the patient's poor compliance and poor health habits the only options from an orthopedic standpoint would be amputations of both lower extremities for nonhealing ulcerations of his lower extremities. I will reevaluate the patient after CT scan reports are back in as well as Dr. Alva putting in his recommendations at this time. PDMP PDMP Reviewed: Not Reviewed Consult Attestations Medical Necessity Statement: Patient in need for further workup. Patient may need surgical intervention for amputation of lower extremities Coding Level of Care Code Acute Code for [facility] Diagnoses Peripheral arterial disease I73.9 Acute lower limb ischemia I99.8 Non-healing open wound of heel, unspecified laterality, initial encounter S91.309A Encounter type: initial encounter Laterality: unspecified laterality
[2024-12-17] MEDS: heparin drip 25,000 UNIT/500 ML PREMIX 27 UNIT IV (18:08)
[2024-12-17] MEDS: oxyCODONE 5 mg IR Tab/Cap PO (18:46)
[2024-12-17 20:27] LABS: Partial Thromboplastin Time 56.7 SECONDS (23.9-36.7)
[2024-12-17] MEDS: fentaNYL 50 mcg/mL INJ 2mL 25 MCG IVP (20:32)
[2024-12-18] VITALS (41 sets, daily range): BP systolic 139–183; BP diastolic 64–93; PULSE 65–85; RESP 15–29; TEMP 36.5–37.6; O2SAT 93–97
[2024-12-18] MEDS: pantoprazole 40 mg SDV IVP (02:37)
[2024-12-18 02:43] LABS: Partial Thromboplastin Time 72.6 SECONDS (23.9-36.7)
--- NOTE | 2024-12-18 03:05 | PC.NURSE ---
late entry, patient pulling at wires and refusing to leave telemetry monitoring on, patient educated on need to monitor heart, agrees to keep pulse ox on but still needing constant reminding, patient unsteady when standing up to urinate, shortly after receiving pain medication patient starting to become confused, unable to tell me his location, patient moved closer to nurses station for closer monitoring
[2024-12-18 03:58] LABS: Hematocrit 33.1 % (37-53); Hemoglobin 11.00 g/dL (11.27-16.99); Mean Corpuscular HGB Conc 33.2 g/dL (30-55); Mean Corpuscular Hemoglobin 30.8 pg (27-33); Mean Corpuscular Volume 92.7 fl (82-101); Nucleated Red Blood Cells % 0 %; Platelet Count 479 10^3/cmm (157-399); Red Blood Count 3.57 10^6/uL (3.85-5.65); White Blood Count 14.13 10^3/uL (3.29-11.43)
[2024-12-18 04:30] LABS: Procalcitonin 2.19 ng/mL (0-0.5)
[2024-12-18 04:42] LABS: Alanine Aminotransferase 12 U/L (0-41); Albumin Level 2.6 g/dL (3.5-5.2); Alkaline Phosphatase 128 U/L (40-130); Anion Gap 17.0 (5-19); Aspartate Amino Transferase 11 U/L (0-40); Blood Urea Nitrogen 18 mg/dL (8-23); Calcium 8.8 mg/dL (8.5-10.5); Carbon Dioxide 20 mmol/L (22-29); Chloride 102 mmol/L (98-107); Creatinine Clr Calc Pharmacy 93.8834; Globulin 3.9 g/dL (1.3-4.6); Glucose 105 mg/dL (65-115); Magnesium 1.8 mg/dL (1.7-2.3); Osmolality Calculated 282 mOsm/kg (285-295); Potassium 4.0 mmol/L (3.5-5.1); Sodium 135 mmol/L (136-145); Total Protein 6.5 g/dL (6.6-8.7)
--- NOTE | 2024-12-18 07:32 | W.PM.OPSUD ---
Surgery/Procedure H&P Update DATE OF PROCEDURE: December 18, 2024 DATE H&P PERFORMED: 12/17/24 H&P UPDATE INFORMATION: I have reviewed H&P completed within last 30 days, I have examined patient prior to procedure and No changes to prior documentation PREOP DIAGNOSIS: Gangrenous foot/critical limb ischemia/limb threatening ischemia PRIMARY INDICATION FOR PROCEDURE: severe peripheral arterial disease Limb threatening ischemia Abnormal CTA with runoff PATIENT REASSESSED PRIOR TO SEDATION, WITH NO CHANGE NOTED: Yes PHYSICAL EXAM: alert, oriented x 3, clear to auscultation bilaterally, regular rate & rhythm and operative site marked OTHER PERTINENT EXAM FINDINGS: All risk-benefit and alternative for the procedure has been explained to the patient. Patient understand 2% risk of stroke major bleed. Patient understand 5% risk of amputation thromboembolic phenomena acute limb ischemia urgent emergent vascular surgery AL contrast-induced nephropathy pseudoaneurysm major minor bleed bruising and infection. Patient agrees to it and would like to proceed with it. AIRWAY EVAL/ANESTHESIA PLAN: ASA II, Risks, benefits & alternatives of sedation and/or procedure discussed and Patient agrees to continue as planned
--- NOTE | 2024-12-18 09:23 | PM.PROC ---
Procedure Note: Date of procedure: 12/18/24 Pre-procedure diagnosis: Limb threatening ischemia/gangrenous foot of left side Procedure: Peripheral angiogram was performed High-grade complete occlusion of left distal common femoral with highly calcified lesion High-grade distal lesion of the left SFA around 90% High-grade lesion of the mid to distal popliteal around 80 to 90% Occluded proximal to distal left anterior tibial vessels reconstitute at the distal end through the peroneal Intravascular lithotripsy and balloon angioplasty of popliteal distal SFA and common femoral left arteries. We got good results however left common femoral artery there appeared to be still 50 to 60% residual stenosis though it has much improved after lithotripsy and balloon angioplasty as it was completely occluded, it would be requiring supera stent which we do not have on the shelf. We will order that stent and bring him back for left common femoral artery treatment as it is around the joint and we would not like to put balloon expandable stent at this location. At the end of the case we have good flow all the way to the foot. Plan: I will discuss with the surgeon if they are comfortable with Plavix on board if it is okay then I will load him with Plavix 300 mg followed by 75 mg of Plavix and aspirin Patient may need coronary artery workup for ischemic heart disease given his severe peripheral vascular disease and high probability for obstructive coronary artery disease Full note to be dictated Coding Level of Care Code Acute Code for [facility]
--- NOTE | 2024-12-18 11:06 | P.PN_ITS ---
Subjective 2 Subjective: Patient is now status post angioplasty of his left lower extremity. Dr. Alva indicates he has been able to open up better blood flow at least down to the knee region of the left lower extremity. At this time it appears that there is adequate flow for the leg and therefore at this time he would like to place him on Plavix to keep this more patent. I was question by Dr. Ford as to if I was to proceed with a surgical amputation of this leg. I again indicated the patient did not wish to have this done at this time. I also feel that we should give this an opportunity to see if this will improve his blood flow of his lower extremity and see if there is any healing that could be accomplished. Vitals/I&O/Wt Last Vital Signs Temp 99.7 F H 12/18/24 03:42 Pulse 80 12/18/24 03:42 Resp 17 12/18/24 03:42 BP 162/71 12/18/24 03:42 Pulse Ox 95 12/18/24 03:42 O2 Del Method Room Air 12/18/24 03:42 12/17/24 12/18/24 12/18/24 22:59 06:59 14:59 Intake Total 1163.85 / 2522.183 538.05 / 3060.233 Balance 1163.85 / 2522.183 538.05 / 3060.233 Weight last 48 hrs Weight 189 lb 11.2 oz Weight 196 lb 14.4 oz Weight 195 lb 3.2 oz Weight 193 lb 11.2 oz Weight 193 lb 11.2 oz Physical Exam 2 Narrative: No formal exam today Data 12/18/24 01:39 12/18/24 01:39 Micro: Microbiology 12/17/24 13:00 Blood Culture - Preliminary Blood SPECIMEN COLLECTED 12/17/24 13:01 Blood Culture - Preliminary Blood SPECIMEN COLLECTED A&P Assessment and plan 1. Non-healing open wound of left heel, subsequent encounter: Patient has recently had arterial plasty of his left lower extremity with improved blood flow. Patient still has no interest in below-knee amputation at this point. Plan: Plan at this time is to go ahead and allow cardiology to treat the patient appropriately to see if they can keep blood vessels patent to the left lower extremity. We will go ahead and follow this and see if there is any healing that could occur from this. However if the patient were to have surgery it sounds as if he needs a full cardiac workup with possible cardiac catheterization in the future. At this time I will sign off on this patient due to the fact have nothing further to offer. If continued demise of this left foot and lower extremity continues I be more than glad to rediscuss below-knee amputation with the patient and performed that procedure. PDMP PDMP Reviewed: Not Reviewed Attestations 2 Medical Necessity Statement*: Patient in need of further medical care Coding Level of Care Code 19576 Diagnoses Non-healing open wound of left heel, subsequent encounter S91.302D Encounter type: subsequent encounter Laterality: left
[2024-12-18 11:21] LABS: Partial Thromboplastin Time 120.7 SECONDS (23.9-36.7)
[2024-12-18] MEDS: oxyCODONE 5 mg IR Tab/Cap PO ×3 (13:33→23:05)
[2024-12-18 13:49] LABS: Partial Thromboplastin Time 37.2 SECONDS (23.9-36.7)
[2024-12-18] MEDS: fentaNYL 50 mcg/mL INJ 2mL 25 MCG IVP (14:17)
--- NOTE | 2024-12-18 14:42 | P.PN_ITS ---
Subjective 2 Subjective: - Patient was seen this morning - Patient's sister is at bedside - Patient's status post peripheral angio gram, with balloon angioplasty, currently he is chest pain free he tells me he feels significantly better - Denies any chest pain - His foot pain specifically the left fo ot has significantly improved - I had a detailed discussion with the p katerina and his sister about his hospitalization - With his severe peripheral arterial di sease, currently he has had his left lower extremity intervened on, with improvement of blood flow, this should allow for better wound healing - The big issue will be that he does hav e evidence of extensive infection in Screen of his left foot, - The question is that is there a possib ility of salvageable left foot, will have to get orthopedics opinion, or will a below-knee amputation the better option, we will have to discuss with orthopedic service - He does not have any chest pain, but w e discussed his echocardiogram findings, his multiple wall motion abnormalities, -He will need to have coronary workup an d intervention at some point, the question will be when should and will be done given his left foot gas gangrene and deep tissue infection - Did also discussed his CT scan finding s of left renal artery stenosis that he will have to follow-up with vascular surgery - Also does have moderate superior mesen teric artery stenosis, she can cause chronic mesenteric ischemia, abdominal pain, - Discussed plan for now is to continue IV antibiotics, monitor him clinically, await specialist recommendations, Vitals/I&O/Wt Last Vital Signs Temp 98.0 F 12/18/24 12:00 Pulse 74 12/18/24 12:00 Resp 22 H 12/18/24 14:17 BP 155/77 12/18/24 12:00 Pulse Ox 95 12/18/24 14:17 O2 Del Method Room Air 12/18/24 03:42 12/17/24 12/18/24 12/18/24 22:59 06:59 14:59 Intake Total 1163.85 / 2522.183 538.05 / 3060.233 540 / 540 Balance 1163.85 / 2522.183 538.05 / 3060.233 540 / 540 Weight last 48 hrs Weight 86.046 kg Weight 89.312 kg Weight 88.541 kg Weight 87.861 kg Weight 87.861 kg Physical Exam 2 Const: COMMON NORMALS: no acute distress and patient oriented x3 Resp: COMMON NORMALS: normal respiratory effort, No retractions, No use of accessory muscles and clear to auscultation bilaterally AUSCULTATION: clear to auscultation bilaterally Cardio: COMMON NORMALS: regular rate, regular rhythm, S1 normal heart sound present and S2 normal heart sound present RATE: regular rate RHYTHM: r egular rhythm HEART SOUNDS: S1 normal heart sound present and S2 normal heart sound present GI: COMMON NORMALS: Normal to inspection, nondistended, normoactive bowel sounds present and non-tender Extremity: NARRATIVE EXTREMITY EXAM: Right foot, warm, no skin discoloration, DP PT pulses palpable Left foot, warm, DP PT pulses palpable, does have erythema, swelling, throughout the left foot Neuro: COMMON NORMALS: patient oriented x3 Psych: COMMON NORMALS: mental status grossly normal Data 12/18/24 01:39 12/18/24 01:39 Micro: Microbiology 12/17/24 13:00 Blood Culture - Preliminary Blood NEGATIVE TO DATE 12/17/24 13:01 Blood Culture - Preliminary Blood NEGATIVE TO DATE A&P Assessment and plan 1. Hypertension: 2. Atrial fibrillation: 3. Unstable angina: 4. Diabetic foot ulcer: 5. Diabetic ulcer of foot associated with diabetes mellitus due to underlying condition, with fat layer exposed: 6. Cellulitis: 7. Peripheral neuropathy: 8. Acute lower limb ischemia: 9. Osteomyelitis: 10. Diabetic foot infection: 11. Gas gangrene of foot: 12. Left renal artery stenosis: 13. Superior mesenteric artery stenosis: 14. Peripheral arterial disease: Plan: Unstable angina, NSTEMI -Currently chest pain-free - Serial EKGs, serial troponins, telemetry monitoring - 6-hour troponin 42.3, T wave changes in lateral leads Cardiac echo CONCLUSIONS 1. Segmental wall motion abnormality of the left ventricle with hypokinesis of the mid and basal inferior and inferolateral wall segments. Globally, normal LV systolic function with EF of 53%. 2. No significant valvular abnormalities. Plan - Aspirin, statin, Plavix - Heparin drip - Cardiology consulted - Decision on when patient will need coronary intervention Acute versus chronic lower limb ischemia Arterial ultrasound on 12/07/2024 -No alarm symptoms as lack of pulses, or acutely blue/black extremities US/CV arterial duplex [facility] [id number] IMPRESSION: Stenosis in the 75-99% range left common femoral artery. JOSELINE indicates moderate to severe peripheral arterial disease left lower extremity. Monophasic waveforms and spectral broadening l throughout the left lower extremity. CT aortogram bilateral extremities 3. Peripheral vascular disease as described above with findings including occlusion of the distal left common femoral artery Severe stenosis of the distal left superficial femoral artery and also of the distal left popliteal artery, and occlusion of the distal right superficial femoral artery. - Status post peripheral angiogram and intervention by , 12/18/2024 High-grade complete occlusion of left distal common femoral with highly calcified lesion High-grade distal lesion of the left SFA around 90% High-grade lesion of the mid to distal popliteal around 80 to 90% Occluded proximal to distal left anterior tibial vessels reconstitute at the distal end through the peroneal Intravascular lithotripsy and balloon angioplasty of popliteal distal SFA and common femoral left arteries. We got good results however left common femoral artery there appeared to be still 50 to 60% residual stenosis though it has much improved after lithotripsy and balloon angioplasty as it was completely occluded, it would be requiring supera stent which we do not have on the shelf. We will order that stent and bring him back for left common femoral artery treatment as it is around the joint and we would not like to put balloon expandable stent at this location. At the end of the case we have good flow all the way to the foot. Plan - Active rewarming - Continue to Doppler DP PT pulses - Aspirin, statin, Plavix -Dilaudid for pain control - Cardiology consulted - IV fluids postprocedure Left renal artery stenosis - Will have to follow-up with vascular surgery as outpatient Moderate superior mesenteric artery stenosis - Monitor for symptoms of mesenteric ischemia Right lower extremity lower extremities diabetic ulcers - With concerns for cellulitis CT right foot CT/CT foot RT wo con* [id number] IMPRESSION: 1. No acute fracture 2. Small soft tissue ulcer on the plantar aspect of the foot. Please correlate clinically. 3. No fluid collection or abscess is identified 4. No soft tissue gas is identified Plan - Vancomycin - Meropenem - Clindamycin - Wound care Left lower extremity diabetic foot infection, with gas gangrene FINDINGS: Bones/joints: No fracture or specific destructive lesion is seen in the foot to suggest active osteomyelitis. Soft tissues: There is diffuse subcutaneous edema throughout the foot especially along the posterior and plantar aspect of the heel. There are bubbles of abnormal soft tissue gas in the plantar soft tissues extending along the lateral aspect of the posterior foot consistent with gas gangrene. There is also a prominent soft tissue ulcer along posteromedial aspect of the heel. There is some radiopaque material within this ulcer which may represent dressing or ointment in the wound appears to be packed with gauze. Other findings: There is no fluid collection to suggest presence of abscess. Current smoker, smoking cessation counseling -With peripheral arterial disease left lower extremity with revascularization as above - Plan - Orthopedic service consulted - Plans on surgical invention based on clinical progress - Follow-up blood cultures - Vancomycin - Meropenem - Clindamycin Type 2 diabetes mellitus, low-dose sliding scale Atrial fibrillation seen on EKG - Heparin drip - Cardiology consulted Full code Heparin drip for DVT prophylaxis PDMP PDMP Reviewed: Not Reviewed Attestations 2 Medical Necessity Statement*: Patient requires hospitalization, inpatient, greater than 2 minutes, peripheral arterial disease status post intervention, acute recurrent limb ischemia, left diabetic foot infection with gas gangrene, NSTEMI, cardiac echo with diminished ejection fraction multiple wall motion abnormalities Diagnoses Hypertension I10 Atrial fibrillation I48.91 Unstable angina I20.0 Diabetic foot ulcer E11.621; L97.509 Diabetic ulcer of foot associated with diabetes mellitus due to underlying condition, with fat layer exposed E08.621; L97.502 Cellulitis L03.90 Peripheral neuropathy G62.9 Acute lower limb ischemia I99.8 Osteomyelitis M86.9 Diabetic foot infection E11.628; L08.9 Gas gangrene of foot A48.0 Left renal artery stenosis I70.1 Superior mesenteric artery stenosis K55.1 Peripheral arterial disease I73.9
[2024-12-18] MEDS: heparin drip 25,000 UNIT/500 ML PREMIX 25 UNIT IV (21:05)
[2024-12-19] VITALS (11 sets, daily range): BP systolic 136–172; BP diastolic 67–91; PULSE 62–77; RESP 16–24; TEMP 35.7–37.4; O2SAT 93–97
[2024-12-19] MEDS: pantoprazole 40 mg SDV IVP (02:45)
[2024-12-19 03:22] LABS: Hematocrit 32.6 % (37-53); Hemoglobin 10.80 g/dL (11.27-16.99); Mean Corpuscular HGB Conc 33.1 g/dL (30-55); Mean Corpuscular Hemoglobin 30.9 pg (27-33); Mean Corpuscular Volume 93.4 fl (82-101); Nucleated Red Blood Cells % 0 %; Platelet Count 501 10^3/cmm (157-399); Red Blood Count 3.49 10^6/uL (3.85-5.65); White Blood Count 14.68 10^3/uL (3.29-11.43)
[2024-12-19 03:30] LABS: Partial Thromboplastin Time 53.2 SECONDS (23.9-36.7)
[2024-12-19 03:43] LABS: Procalcitonin 1.02 ng/mL (0-0.5)
[2024-12-19 04:12] LABS: Alanine Aminotransferase 15 U/L (0-41); Albumin Level 2.6 g/dL (3.5-5.2); Alkaline Phosphatase 125 U/L (40-130); Aspartate Amino Transferase 14 U/L (0-40); Blood Urea Nitrogen 15 mg/dL (8-23); Calcium 8.6 mg/dL (8.5-10.5); Carbon Dioxide 20 mmol/L (22-29); Creatinine Clr Calc Pharmacy 82.0810; Globulin 3.8 g/dL (1.3-4.6); Glucose 112 mg/dL (65-115); Magnesium 2.0 mg/dL (1.7-2.3); Total Protein 6.4 g/dL (6.6-8.7)
[2024-12-19 04:27] LABS: Anion Gap 15.8 (5-19); Chloride 105 mmol/L (98-107); Osmolality Calculated 286 mOsm/kg (285-295); Potassium 3.8 mmol/L (3.5-5.1); Sodium 137 mmol/L (136-145)
[2024-12-19] MEDS: oxyCODONE 5 mg IR Tab/Cap PO ×4 (07:57→19:01)
--- NOTE | 2024-12-19 08:59 | P.PN_ITS ---
<Statement entered by Rod Kerr MD - 12/19/24 12:59> Patient was evaluated and cared for in conjunction with an advanced practice practitioner. I personally saw the patient and reviewed the chart and all pertinent data. I discussed the patient in detail with the advanced practice practitioner. Please see their note for complete assessment and agreed upon plan of care for the patient. Subjective 2 Subjective: He underwent IVL to left popliteal, distal SFA and common femoral. He continues to have some heartburn. Vitals/I&O/Wt Last Vital Signs Temp 98.1 F 12/19/24 07:19 Pulse 66 12/19/24 07:19 Resp 19 H 12/19/24 07:57 BP 169/72 12/19/24 07:19 Pulse Ox 96 12/19/24 07:57 O2 Del Method Room Air 12/19/24 07:19 12/18/24 12/19/24 12/19/24 22:59 06:59 14:59 Intake Total 1170 / 2171.667 461.667 / 2171.667 120 / 120 Output Total 1350 / 2050 700 / 2050 Balance -180 / 121.667 -238.333 / 121.667 120 / 120 Weight last 48 hrs Weight 193 lb 3.2 oz Weight 189 lb 11.2 oz Physical Exam 2 Const: COMMON NORMALS: no acute distress and patient oriented x3 GENERAL APPEARANCE: cooperative and comfortable ORIENTATION/CONSCIOUSNESS: Yes awake, Yes oriented to person, Yes oriented to place and Yes oriented to time Chest: COMMONS NORMALS: normal inspection of the chest and normal palpation of entire chest wall CHEST: Yes Symmetrical chest wall rise Resp: COMMON NORMALS: normal respiratory effort, No retractions, No use of accessory muscles and clear to auscultation bilaterally EFFORT & INSPECTION: Yes symmetric chest movement AUSCULTATION: clear to auscultation bilaterally Cardio: COMMON NORMALS: regular rate, regular rhythm, S1 normal heart sound present, S2 normal heart sound present, No gallops present (Cardio), No clicks present (Cardio), No murmurs present (Cardio) and No rub (Cardio) RATE: r egular rate RHYTHM: regular rhythm HEART SOUNDS: S1 normal heart sound present and S2 normal heart sound present PERIPHERAL PULSES: radial pulses present, posterior tibial pulses present positive left dopplerable and dorsalis pedis present positive left dopplerable Neuro: COMMON NORMALS: patient oriented x3 and moves all extremities S ENSORIUM/ORIENTATION: Yes oriented to person, Yes oriented to place and Yes oriented to time Data 12/19/24 03:07 12/19/24 03:07 Micro: Microbiology 12/17/24 13:00 Blood Culture - Preliminary Blood NEGATIVE TO DATE 12/17/24 13:01 Blood Culture - Preliminary Blood NEGATIVE TO DATE A&P Assessment and plan 1. Peripheral arterial disease: 2. Tobacco dependence: 3. Acute lower limb ischemia: 4. Diabetic foot infection: 5. Hypertension: 6. Gas gangrene of foot: Plan: Given his severe PAD, there is likelihood of CAD. Frequent indigestion/heartburn could be an anginal equivalent. For further evaulation prior to surgical procedures, coronary angiogram would be appropriate to evaluate coronary status further. This has been discussed with patient this morning and he is in agreement to proceed, will plan for 0600 tomorrow morning, npo after midnight tonight. Blood pressure has been hypertensive, likely also high due to pain. May need to add amlodipine. PDMP PDMP Reviewed: Not Reviewed Attestations 2 Medical Necessity Statement*: ischemic workup, cath logan Coding Level of Care Code Acute Code for [facility] Diagnoses Peripheral arterial disease I73.9 Tobacco dependence F17.200 Acute lower limb ischemia I99.8 Diabetic foot infection E11.628; L08.9 Hypertension I10 Gas gangrene of foot A48.0
--- NOTE | 2024-12-19 09:02 | PC.NURSE ---
Pt did not answer the nurse when the nurse asked him during 8am rounding if he has any pain. He did not answer and laid back down to his bed again.
[2024-12-19] MEDS: HYDROmorphone 0.5 MG/0.5 ML INJ 1 MG IVP (10:02)
[2024-12-19 10:29] LABS: Partial Thromboplastin Time 53.1 SECONDS (23.9-36.7)
[2024-12-19] MEDS: heparin 5,000 unit/mL INJ 1 mL IVP (11:14)
--- NOTE | 2024-12-19 15:37 | P.PN_ITS ---
Subjective 2 Subjective: Patient was seen this morning, currently alert oriented x 3, no complaints, denies any nausea, vomiting, his pain in his left foot has significantly improved, but continues to have pain in the heel of his foot, discussed with patient the possibility of a left below-knee amputation however he declines, he wants to try medical intervention, and IV antibiotics, denies any fevers, no chills Vitals/I&O/Wt Last Vital Signs Temp 98.4 F 12/19/24 10:56 Pulse 64 12/19/24 10:56 Resp 17 12/19/24 15:03 BP 136/91 12/19/24 10:56 Pulse Ox 97 12/19/24 15:03 O2 Del Method Room Air 12/19/24 07:19 12/19/24 12/19/24 12/19/24 06:59 14:59 22:59 Intake Total 461.667 / 2171.667 863.85 / 863.85 Output Total 700 / 2050 350 / 350 Balance -238.333 / 121.667 513.85 / 513.85 Weight last 48 hrs Weight 87.634 kg Weight 86.046 kg Physical Exam 2 Const: COMMON NORMALS: no acute distress and patient oriented x3 Resp: COMMON NORMALS: normal respiratory effort, No retractions, No use of accessory muscles and clear to auscultation bilaterally AUSCULTATION: clear to auscultation bilaterally Cardio: COMMON NORMALS: regular rate, regular rhythm, S1 normal heart sound present and S2 normal heart sound present RATE: regular rate RHYTHM: r egular rhythm HEART SOUNDS: S1 normal heart sound present and S2 normal heart sound present GI: COMMON NORMALS: Normal to inspection, nondistended, normoactive bowel sounds present and non-tender Extremity: COMMON NORMALS: no pedal edema NARRATIVE EXTREMITY EXAM: Right lower extremity, warm, DP PT pulses palpable, diabetic wound, wrapped Left lower extremity, warm, DP PT pulses palpable, no evidence of acute limb ischemia, does have erythema, swelling, tenderness at the ball of his foot Neuro: COMMON NORMALS: patient oriented x3 Psych: COMMON NORMALS: mental status grossly normal Data 12/19/24 03:07 12/19/24 03:07 Micro: Microbiology 12/17/24 13:00 Blood Culture - Preliminary Blood NEGATIVE TO DATE 12/17/24 13:01 Blood Culture - Preliminary Blood NEGATIVE TO DATE A&P Assessment and plan 1. Hypertension: 2. Atrial fibrillation: 3. Unstable angina: 4. Diabetic foot ulcer: 5. Diabetic ulcer of foot associated with diabetes mellitus due to underlying condition, with fat layer exposed: 6. Cellulitis: 7. Peripheral neuropathy: 8. Acute lower limb ischemia: 9. Osteomyelitis: 10. Diabetic foot infection: 11. Gas gangrene of foot: 12. Left renal artery stenosis: 13. Superior mesenteric artery stenosis: 14. Peripheral arterial disease: Plan: Unstable angina, NSTEMI -Currently chest pain-free - Serial EKGs, serial troponins, telemetry monitoring - 6-hour troponin 42.3, T wave changes in lateral leads Cardiac echo CONCLUSIONS 1. Segmental wall motion abnormality of the left ventricle with hypokinesis of the mid and basal inferior and inferolateral wall segments. Globally, normal LV systolic function with EF of 53%. 2. No significant valvular abnormalities. Plan - Aspirin, statin, Plavix - Heparin drip - Cardiology consulted - Plan for coronary invention tomorrow, n.p.o. midnight Acute versus chronic lower limb ischemia Arterial ultrasound on 12/07/2024 -No alarm symptoms as lack of pulses, or acutely blue/[place] extremities US/[place] [id number] IMPRESSION: Stenosis in the 75-99% range left common femoral artery. JOSELINE indicates moderate to severe peripheral arterial disease left lower extremity. Monophasic waveforms and spectral broadening l throughout the left lower extremity. CT aortogram bilateral extremities 3. Peripheral vascular disease as described above with findings including occlusion of the distal left common femoral artery Severe stenosis of the distal left superficial femoral artery and also of the distal left popliteal artery, and occlusion of the distal right superficial femoral artery. - Status post peripheral angiogram and intervention by , 12/18/2024 High-grade complete occlusion of left distal common femoral with highly calcified lesion High-grade distal lesion of the left SFA around 90% High-grade lesion of the mid to distal popliteal around 80 to 90% Occluded proximal to distal left anterior tibial vessels reconstitute at the distal end through the peroneal Intravascular lithotripsy and balloon angioplasty of popliteal distal SFA and common femoral left arteries. We got good results however left common femoral artery there appeared to be still 50 to 60% residual stenosis though it has much improved after lithotripsy and balloon angioplasty as it was completely occluded, it would be requiring supera stent which we do not have on the shelf. We will order that stent and bring him back for left common femoral artery treatment as it is around the joint and we would not like to put balloon expandable stent at this location. At the end of the case we have good flow all the way to the foot. Plan - Active rewarming - Continue to Doppler DP PT pulses - Aspirin, statin, Plavix -Dilaudid for pain control - Cardiology consulted - IV fluids postprocedure Left renal artery stenosis - Will have to follow-up with vascular surgery as outpatient Moderate superior mesenteric artery stenosis - Monitor for symptoms of mesenteric ischemia Right lower extremity lower extremities diabetic ulcers - With concerns for cellulitis CT right foot CT/CT foot RT wo con* [id number] IMPRESSION: 1. No acute fracture 2. Small soft tissue ulcer on the plantar aspect of the foot. Please correlate clinically. 3. No fluid collection or abscess is identified 4. No soft tissue gas is identified Plan - Vancomycin - Meropenem - Clindamycin - Wound care Left lower extremity diabetic foot infection, with gas gangrene FINDINGS: Bones/joints: No fracture or specific destructive lesion is seen in the foot to suggest active osteomyelitis. Soft tissues: There is diffuse subcutaneous edema throughout the foot especially along the posterior and plantar aspect of the heel. There are bubbles of abnormal soft tissue gas in the plantar soft tissues extending along the lateral aspect of the posterior foot consistent with gas gangrene. There is also a prominent soft tissue ulcer along posteromedial aspect of the heel. There is some radiopaque material within this ulcer which may represent dressing or ointment in the wound appears to be packed with gauze. Other findings: There is no fluid collection to suggest presence of abscess. Current smoker, smoking cessation counseling -With peripheral arterial disease left lower extremity with revascularization as above - Plan - Orthopedic service consulted - Orthopedic service recommends left below-knee amputation, patient declines, will await orthopedics discussion with patient - Follow-up blood cultures - Vancomycin - Meropenem - Clindamycin Type 2 diabetes mellitus, low-dose sliding scale Atrial fibrillation seen on EKG, rate controlled - Heparin drip - Cardiology consulted Full code Heparin drip for DVT prophylaxis PDMP PDMP Reviewed: Not Reviewed Attestations 2 Medical Necessity Statement*: Patient requires hospitalization for left lower extremity gas pain, NSTEMI, left lower extremity peripheral vascular disease, spoke to patient, spoke to cardiology, spoke to orthopedic service Diagnoses Hypertension I10 Atrial fibrillation I48.91 Unstable angina I20.0 Diabetic foot ulcer E11.621; L97.509 Diabetic ulcer of foot associated with diabetes mellitus due to underlying condition, with fat layer exposed E08.621; L97.502 Cellulitis L03.90 Peripheral neuropathy G62.9 Acute lower limb ischemia I99.8 Osteomyelitis M86.9 Diabetic foot infection E11.628; L08.9 Gas gangrene of foot A48.0 Left renal artery stenosis I70.1 Superior mesenteric artery stenosis K55.1 Peripheral arterial disease I73.9
[2024-12-19] MEDS: heparin drip 25,000 UNIT/500 ML PREMIX 29 UNIT IV (15:39)
--- NOTE | 2024-12-19 17:34 | P.PN_ITS ---
Subjective 2 Subjective: Patient recently had arterial catheterization of left lower extremity to improve blood flow. It is reported at this time patient has better pulses distally as well as foot is warmer than it has been. However the patient is complaining of quite a bit of pain and discomfort in his foot and lower extremity at this time. I have been requested by Dr. Polanco to reevaluate the heel of this patient and to decide if debridement would be of any benefit at this point. Vitals/I&O/Wt Last Vital Signs Temp 99.3 F 12/19/24 15:43 Pulse 77 12/19/24 15:43 Resp 17 12/19/24 15:43 BP 166/79 12/19/24 15:43 Pulse Ox 95 12/19/24 15:43 O2 Del Method Room Air 12/19/24 15:43 12/19/24 12/19/24 12/19/24 06:59 14:59 22:59 Intake Total 461.667 / 2171.667 863.85 / 863.85 131.95 / 995.80 Output Total 700 / 2050 350 / 350 Balance -238.333 / 121.667 513.85 / 513.85 131.95 / 645.80 Weight last 48 hrs Weight 193 lb 3.2 oz Weight 189 lb 11.2 oz Physical Exam 2 Narrative: On exam today he does have a warmer feeling foot. He still has serous drainage from his heel wound. There is a large area of skin loss over this area also. Patient is complaining of pain in his foot with any motion and having increased pain with any palpation of his calf musculature distally. There is marked point on his dorsalis pedis region of his foot but I cannot feel a pulse there today. Data 12/19/24 03:07 12/19/24 03:07 Micro: Microbiology 12/17/24 13:00 Blood Culture - Preliminary Blood NEGATIVE TO DATE 12/17/24 13:01 Blood Culture - Preliminary Blood NEGATIVE TO DATE A&P Assessment and plan 1. Diabetic ulcer of left heel associated with diabetes mellitus due to underlying condition, with fat layer exposed: Patient has a nonhealing diabetic foot ulcer that is quite significant in size. It is down into the fatty tissue nearly to bone. CT findings felt that there was gas collection within the tissues possibly indicating gangrene. He has recently had arterioplasty of his left lower extremity with improved blood flow however patient is now having increased pain and problems due to the revascularization of some of the tissues. Much of these tissues may be starting to ache and are because of lack of blood. Patient is also not a good surgical candidate secondary to cardiac reasons and further workup is going on for this. He is planned for cardiac catheterization tomorrow. At this time I do still believe the patient needs a below-knee amputation due to the extent of this ulceration with no ability to do soft tissue coverage of the area. Also with a history of significant peripheral vascular disease with previous stents and procedures done to trying to maintain blood flow to this extremity. Also due to the fact the patient has been very noncompliant with his treatment for this nonhealing ulcer along with refusing to quit smoking and core management of his diabetes. 2. Diabetic foot infection: Plan: At this time again I have had a lengthy discussion with the patient about the benefits of having a below-knee amputation. I have demonstrated the level that it would take place at and informed him that within 6 months he would be walking on a prosthesis without a problem in the area. I have however told him that I will wait for the cardiac evaluation before asking him for consent to proceed with an amputation of his lower extremity. I have indicated to him that if he needs further heart surgery/bypass surgery that he will need to be referred to a heart hospital and they can address his avascular leg at that time up there. I will discuss this again tomorrow with him once his cardiac catheterization is completed PDMP PDMP Reviewed: Not Reviewed Attestations 2 Medical Necessity Statement*: Patient in need of further medical support as well as possible amputation of the left lower extremity secondary to peripheral vascular disease Coding Level of Care Code Critical Care >/= 30 minutes Diagnoses Diabetic ulcer of left heel associated with diabetes mellitus due to underlying condition, with fat layer exposed E08.621; L97.422 Diabetic foot ulcer location: heel Laterality: left Diabetic foot infection E11.628; L08.9
[2024-12-19 17:41] LABS: Partial Thromboplastin Time 56.1 SECONDS (23.9-36.7)
[2024-12-20] VITALS (74 sets, daily range): BP systolic 152–184; BP diastolic 69–126; PULSE 67–90; RESP 13–31; TEMP 37.1–39.4; O2SAT 77–100; BMI 28.4
[2024-12-20 00:20] LABS: Partial Thromboplastin Time 101.0 SECONDS (23.9-36.7)
[2024-12-20] MEDS: pantoprazole 40 mg SDV IVP (03:04)
[2024-12-20 03:33] LABS: Hematocrit 33.9 % (37-53); Hemoglobin 11.40 g/dL (11.27-16.99); Mean Corpuscular HGB Conc 33.6 g/dL (30-55); Mean Corpuscular Hemoglobin 31.1 pg (27-33); Mean Corpuscular Volume 92.4 fl (82-101); Nucleated Red Blood Cells % 0 %; Platelet Count 503 10^3/cmm (157-399); Red Blood Count 3.67 10^6/uL (3.85-5.65); White Blood Count 12.90 10^3/uL (3.29-11.43)
[2024-12-20 03:51] LABS: Alanine Aminotransferase 26 U/L (0-41); Albumin Level 2.5 g/dL (3.5-5.2); Alkaline Phosphatase 130 U/L (40-130); Anion Gap 15.9 (5-19); Aspartate Amino Transferase 23 U/L (0-40); Blood Urea Nitrogen 14 mg/dL (8-23); Calcium 8.6 mg/dL (8.5-10.5); Carbon Dioxide 23 mmol/L (22-29); Chloride 101 mmol/L (98-107); Creatinine Clr Calc Pharmacy 82.7476; Globulin 3.9 g/dL (1.3-4.6); Glucose 133 mg/dL (65-115); Magnesium 2.1 mg/dL (1.7-2.3); Osmolality Calculated 284 mOsm/kg (285-295); Potassium 3.9 mmol/L (3.5-5.1); Sodium 136 mmol/L (136-145); Total Protein 6.4 g/dL (6.6-8.7)
[2024-12-20 04:15] LABS: Procalcitonin 0.52 ng/mL (0-0.5)
--- NOTE | 2024-12-20 06:27 | P.HPUD_ITS ---
Surgery/Procedure H&P Update DATE OF PROCEDURE: December 20, 2024 DATE H&P PERFORMED: 12/17/24 H&P UPDATE INFORMATION: I have reviewed H&P completed within last 30 days, I have examined patient prior to procedure and No changes to prior documentation PREOP DIAGNOSIS: LV dysfunction, CAD, non-STEMI PRIMARY INDICATION FOR PROCEDURE: Left heart cath/PCI if indicated PLANNED PROCEDURE: Operation Date: 12/18/24 07:00 Proposed Procedures p Peripheral Diagnostic(Not Applicable) - Clovis Fajardo MD Operation Date: 12/20/24 06:00 Proposed Procedures p Cardiac Catheterization(Left) - Clovis Fajardo MD PATIENT REASSESSED PRIOR TO SEDATION, WITH NO CHANGE NOTED: Yes PHYSICAL EXAM: alert, oriented x 3, clear to auscultation bilaterally and regular rate & rhythm OTHER PERTINENT EXAM FINDINGS: All risk-benefit and alternative for the procedure has been explained to the patient in detail. Patient understand 2% risk of stroke major bleed. Patient understand 5% risk of minor bleeding oozing infection hematoma contrast- induced nephropathy urgent emergent vascular bypass surgery. Patient agrees to it and would like to proceed with it. AIRWAY EVAL/ANESTHESIA PLAN: normal airway, ASA II, Risks, benefits & alternatives of sedation and/or procedure discussed and Patient agrees to continue as planned
--- NOTE | 2024-12-20 07:30 | PC.NURSE ---
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
--- NOTE | 2024-12-20 07:43 | PC.SOCIAL ---
Late Entry: IMM Update 12/19/24 @ 0940: IMM Updated and reviewed w/ patient. Copy provided and copy dated, initialed and placed in chart.
--- NOTE | 2024-12-20 08:44 | PM.PROC ---
Procedure Note: Date of procedure: 12/20/24 Pre-procedure diagnosis: [id number] Post-procedure diagnosis: same Procedure: Left heart cath/ Left main: No significant disease LAD has luminal irregularity with mid high-grade stenosis Ramus intermedius is subtotally occluded Left circumflex has luminal irregularities, obtuse marginal luminal irregularity, groove circumflex has high-grade stenosis it is small caliber vessels RCA is dominant large caliber vessel with high-grade calcified lesion in the proximal segment PCI to proximal RCA using lithotripsy and drug-eluting stent 2 overlapping postdilated with noncompliant balloon. PCI to mid LAD with drug-eluting stent postdilated noncompliant balloon Balloon angioplasty to groove circumflex PCI to proximal to mid ramus intermedius with drug-eluting stent postdilated with noncompliant balloon Overall good angiographic result noted. BRENDAN-3 flow was confirmed in all the vessels without any complication. Full note to be dictated Plan: Patient was loaded with additional 300 mg of Plavix continue dual antiplatelet therapy in the form of Plavix at 5 mg and aspirin 81 mg for preferably 2-year but at least 1 year Continue IV fluid 100 mL/h for 10 hours [address] band in place and will be removed as per protocol Coding Level of Care Code Acute Code for [facility]
[2024-12-20] MEDS: oxyCODONE 5 mg IR Tab/Cap PO ×3 (10:23→19:36)
--- NOTE | 2024-12-20 13:41 | P.PN_ITS ---
Subjective 2 Subjective: - Patient was seen this morning - Patient's family members, sister are a t bedside - He is status post coronary angiography today, status post cardiac stenting, denies any active chest pain - He is complaint is pain in his left fo ot, denies any fevers, no chills, no cough - We had a detailed discussion with him about his CT foot findings, with family members at bedside, orthopedics consultation, recommendation for below-knee amputation -My concerns for gas gangrene on CT imag ing to her left foot, that we will need surgical intervention - However patient declines any below-kne e amputation, he understands ability and mortality, voices understanding, all questions answered - Will await further recommendations our [facility] orthopedic service - Patient's advocating for consideration of a debridement, and trial of debridement, as he wants to salvage his foot, - Discussed risks of waiting, risk of hi s gas gangrene, risk of septic shock, sepsis, seeding of infection, he voiced understanding, all questions answered, Vitals/I&O/Wt Last Vital Signs Temp 98.7 F 12/20/24 11:17 Pulse 70 12/20/24 11:17 Resp 16 12/20/24 11:17 BP 168/78 12/20/24 11:17 Pulse Ox 95 12/20/24 11:17 O2 Del Method Room Air 12/20/24 03:14 12/19/24 12/20/24 12/20/24 22:59 06:59 14:59 Intake Total 480.917 / 1344.767 513.633 / 1858.400 480.8 / 480.8 Output Total 400 / 750 1000 / 1750 1450 / 1450 Balance 80.917 / 594.767 -486.367 / 108.400 -969.2 / -969.2 Weight last 48 hrs Weight 89.947 kg Weight 87.634 kg Physical Exam 2 Const: COMMON NORMALS: no acute distress and patient oriented x3 Resp: COMMON NORMALS: normal respiratory effort, No retractions, No use of accessory muscles and clear to auscultation bilaterally AUSCULTATION: clear to auscultation bilaterally Cardio: COMMON NORMALS: regular rate, regular rhythm, S1 normal heart sound present and S2 normal heart sound present RATE: regular rate RHYTHM: r egular rhythm HEART SOUNDS: S1 normal heart sound present and S2 normal heart sound present GI: COMMON NORMALS: Normal to inspection, nondistended, normoactive bowel sounds present and non-tender Extremity: NARRATIVE EXTREMITY EXAM: Left foot, on examination, heel ulcer, diabetic, with packing in place, with surrounding erythema, swelling, warmth, crepitus, tracking along lateral foot Does have erythema, swelling, warmth throughout the left foot DP PT pulses are palpable, good capillary refill Right foot, DP PT pulses palpable, Neuro: COMMON NORMALS: patient oriented x3 Psych: COMMON NORMALS: mental status grossly normal Data 12/20/24 03:22 12/20/24 03:22 A&P Assessment and plan 1. Hypertension: 2. Atrial fibrillation: 3. Unstable angina: 4. Diabetic foot ulcer: 5. Diabetic ulcer of foot associated with diabetes mellitus due to underlying condition, with fat layer exposed: 6. Cellulitis: 7. Peripheral neuropathy: 8. Acute lower limb ischemia: 9. Osteomyelitis: 10. Diabetic foot infection: 11. Gas gangrene of foot: 12. Left renal artery stenosis: 13. Superior mesenteric artery stenosis: 14. Peripheral arterial disease: Plan: Unstable angina, NSTEMI -Currently chest pain-free - Serial EKGs, serial troponins, telemetry monitoring - 6-hour troponin 42.3, T wave changes in lateral leads Cardiac echo CONCLUSIONS 1. Segmental wall motion abnormality of the left ventricle with hypokinesis of the mid and basal inferior and inferolateral wall segments. Globally, normal LV systolic function with EF of 53%. 2. No significant valvular abnormalities. Status post coronary angiography Left main: No significant disease LAD has luminal irregularity with mid high-grade stenosis Ramus intermedius is subtotally occluded Left circumflex has luminal irregularities, obtuse marginal luminal irregularity, groove circumflex has high-grade stenosis it is small caliber vessels RCA is dominant large caliber vessel with high-grade calcified lesion in the proximal segment PCI to proximal RCA using lithotripsy and drug-eluting stent 2 overlapping postdilated with noncompliant balloon. PCI to mid LAD with drug-eluting stent postdilated noncompliant balloon Balloon angioplasty to groove circumflex PCI to proximal to mid ramus intermedius with drug-eluting stent postdilated with noncompliant balloon Overall good angiographic result noted. BRENDAN-3 flow was confirmed in all the vessels without any complication. Plan - Aspirin, statin, Plavix - Heparin drip will be discontinued, transition to Lovenox - Cardiology consulted Acute versus chronic lower limb ischemia Arterial ultrasound on 12/07/2024 - Good DP PT pulses bilaterally [place] [id number] IMPRESSION: Stenosis in the 75-99% range left common femoral artery. JOSELINE indicates moderate to severe peripheral arterial disease left lower extremity. Monophasic waveforms and spectral broadening l throughout the left lower extremity. CT aortogram bilateral extremities 3. Peripheral vascular disease as described above with findings including occlusion of the distal left common femoral artery Severe stenosis of the distal left superficial femoral artery and also of the distal left popliteal artery, and occlusion of the distal right superficial femoral artery. - Status post peripheral angiogram and intervention by , 12/18/2024 High-grade complete occlusion of left distal common femoral with highly calcified lesion High-grade distal lesion of the left SFA around 90% High-grade lesion of the mid to distal popliteal around 80 to 90% Occluded proximal to distal left anterior tibial vessels reconstitute at the distal end through the peroneal Intravascular lithotripsy and balloon angioplasty of popliteal distal SFA and common femoral left arteries. We got good results however left common femoral artery there appeared to be still 50 to 60% residual stenosis though it has much improved after lithotripsy and balloon angioplasty as it was completely occluded, it would be requiring supera stent which we do not have on the shelf. We will order that stent and bring him back for left common femoral artery treatment as it is around the joint and we would not like to put balloon expandable stent at this location. At the end of the case we have good flow all the way to the foot. Plan - Active rewarming - Continue to Doppler DP PT pulses - Aspirin, statin, Plavix -Dilaudid for pain control - Cardiology consulted Left renal artery stenosis - Will have to follow-up with vascular surgery as outpatient Moderate superior mesenteric artery stenosis - Monitor for symptoms of mesenteric ischemia Right lower extremity lower extremities diabetic ulcers - With concerns for cellulitis CT right foot CT/CT foot RT wo con* [id number] IMPRESSION: 1. No acute fracture 2. Small soft tissue ulcer on the plantar aspect of the foot. Please correlate clinically. 3. No fluid collection or abscess is identified 4. No soft tissue gas is identified Plan - Vancomycin - Meropenem - Wound care Left lower extremity diabetic foot infection, with gas gangrene seen left plantar aspect soft tissue, extending along lateral aspect of plantar foot FINDINGS: Bones/joints: No fracture or specific destructive lesion is seen in the foot to suggest active osteomyelitis. Soft tissues: There is diffuse subcutaneous edema throughout the foot especially along the posterior and plantar aspect of the heel. There are bubbles of abnormal soft tissue gas in the plantar soft tissues extending along the lateral aspect of the posterior foot consistent with gas gangrene. There is also a prominent soft tissue ulcer along posteromedial aspect of the heel. There is some radiopaque material within this ulcer which may represent dressing or ointment in the wound appears to be packed with gauze. Other findings: There is no fluid collection to suggest presence of abscess. Current smoker, smoking cessation counseling -With peripheral arterial disease left lower extremity with revascularization as above - Plan - Orthopedic service consulted - Orthopedic service recommends left below-knee amputation, patient declines, will await orthopedics discussion with patient - Follow-up blood cultures - Vancomycin - Meropenem Type 2 diabetes mellitus, low-dose sliding scale Atrial fibrillation seen on EKG, rate controlled, reviewed by cardiology, no significant evidence of atrial fibrillation - Cardiology consulted Full code Lovenox for DVT prophylaxis PDMP PDMP Reviewed: Not Reviewed Attestations 2 Medical Necessity Statement*: Patient requires hospitalization for left lower extremity diabetic foot infection, CAD, NSTEMI Diagnoses Hypertension I10 Atrial fibrillation I48.91 Unstable angina I20.0 Diabetic foot ulcer E11.621; L97.509 Diabetic ulcer of foot associated with diabetes mellitus due to underlying condition, with fat layer exposed E08.621; L97.502 Cellulitis L03.90 Peripheral neuropathy G62.9 Acute lower limb ischemia I99.8 Osteomyelitis M86.9 Diabetic foot infection E11.628; L08.9 Gas gangrene of foot A48.0 Left renal artery stenosis I70.1 Superior mesenteric artery stenosis K55.1 Peripheral arterial disease I73.9
--- NOTE | 2024-12-20 16:32 | PC.NURSE ---
Pt stated he still feels cold and still have chills even if the room feels so warm. Check Temp Orally-101.3 F. PRN Tylenol given, Dr Ford notified.
--- NOTE | 2024-12-20 17:01 | P.PN_ITS ---
Subjective 2 Subjective: Patient still being treated for sepsis. Patient still with infected left heel diabetic ulcer. Just now as I went to see him he spiked a temperature to 100 degrees. I have talked with the hospitalist about his foot again and they are wondering if debridement would help. Again I have pointed out that he has terrible peripheral vascular disease and he is not perfusing his foot and lower extremity. Lack of perfusion is causing his pain as well as his continued infection. Therefore at this time he does need below-knee amputation. Vitals/I&O/Wt Last Vital Signs Temp 102.9 F H 12/20/24 16:00 Pulse 87 12/20/24 16:00 Resp 24 H 12/20/24 16:00 BP 168/90 12/20/24 16:00 Pulse Ox 98 12/20/24 16:00 O2 Del Method Room Air 12/20/24 16:00 12/20/24 12/20/24 12/20/24 06:59 14:59 22:59 Intake Total 513.633 / 1858.400 580.8 / 580.8 250 / 830.8 Output Total 1000 / 1750 1450 / 1450 450 / 1900 Balance -486.367 / 108.400 -869.2 / -869.2 -200 / -1069.2 Weight last 48 hrs Weight 198 lb 4.8 oz Weight 193 lb 3.2 oz Physical Exam 2 Narrative: Left heel ulceration unchanged. Patient is tender to palpation of the musculature of the left lower extremity below the knee. No palpable pulse Data 12/20/24 03:22 12/20/24 03:22 A&P Assessment and plan 1. Diabetic ulcer of left heel associated with diabetes mellitus due to underlying condition, with fat layer exposed: Patient with nonhealing ulcer and extension on into the soft tissues to nearly the bone. No signs of osteomyelitis at this time. 2. Diabetic foot infection: Infection is coming under control with IV antibiotics however will not be eradicated primarily by this Plan: Plan at this time again is I have offered a below-knee amputation of left lower extremity. The patient is more willing to discuss this at this time. He indicates he is not happy with this idea but understands that he is tired of feeling this way. If try to explain to him that he will feel better once we get this dying foot off of his body. Tentatively I have told him I have scheduled him for Thursday afternoon this week i.e. in 3 days. I will talk to the patient again tomorrow and the next day. However, if his health status starts to change and get worse we may need to do this amputation sooner and I will try and make room for it on either Thursday or . PDMP PDMP Reviewed: Not Reviewed Attestations 2 Medical Necessity Statement*: Patient in need of surgical amputation of left lower extremity. He also in need of continued IV antibiotics Coding Level of Care Code Critical Care >/= 30 minutes Diagnoses Diabetic ulcer of left heel associated with diabetes mellitus due to underlying condition, with fat layer exposed E08.621; L97.422 Diabetic foot ulcer location: heel Laterality: left Diabetic foot infection E11.628; L08.9
[2024-12-21] VITALS (23 sets, daily range): BP systolic 152–177; BP diastolic 60–95; PULSE 66–81; RESP 11–29; TEMP 36.5–37; O2SAT 94–98
[2024-12-21] MEDS: pantoprazole 40 mg SDV IVP (01:58)
[2024-12-21 04:06] LABS: Hematocrit 30.5 % (37-53); Hemoglobin 10.20 g/dL (11.27-16.99); Mean Corpuscular HGB Conc 33.4 g/dL (30-55); Mean Corpuscular Hemoglobin 31.0 pg (27-33); Mean Corpuscular Volume 92.7 fl (82-101); Nucleated Red Blood Cells % 0 %; Platelet Count 501 10^3/cmm (157-399); Red Blood Count 3.29 10^6/uL (3.85-5.65); White Blood Count 17.36 10^3/uL (3.29-11.43)
[2024-12-21 04:26] LABS: Anion Gap 15.8 (5-19); Blood Urea Nitrogen 14 mg/dL (8-23); Calcium 7.8 mg/dL (8.5-10.5); Carbon Dioxide 20 mmol/L (22-29); Chloride 104 mmol/L (98-107); Creatinine Clr Calc Pharmacy 75.3466; Glucose 127 mg/dL (65-115); Osmolality Calculated 284 mOsm/kg (285-295); Potassium 3.8 mmol/L (3.5-5.1); Sodium 136 mmol/L (136-145)
[2024-12-21] MEDS: oxyCODONE 5 mg IR Tab/Cap PO ×3 (09:01→21:00)
--- NOTE | 2024-12-21 10:06 | PC.CHAP ---
Pastoral Care Encounter/Spiritual Assessment Type of Contact [] Declined charging plug placer visit [] Patient/Family/Request visit [] Outpatient visit [] Follow-up visit [] Physician referral [] Code/Alert [x] Routine visit [] Staff referral [] Actively dying [] Patient sleeping [] Family support [] [] Out of room [] Palliative care [] [] Receiving care in room [] Pre-surgical visit [] Trauma [] Long length of stay [] ICU visit [] Other: Relational/Emotional Strength [x] Patient feels connected with others/family/visitors/staff [] Distress [] Loneliness/isolation [] Abandonment Spirituality of Patient [x] Person of Ragini [] Attends Mandaeism of their Ragini [x] Believes in Prayer [] Reads Bible or Jehovah'S Witness materials [] There are Spiritual issues to be addressed Supervisor Particleboard Interventions [x] Prayer [x] Active listening [] Non-anxious presence [x] Spiritual/emotional support [] Crisis/trauma care [] Spiritual counseling [] Bereavement support [] Provided bereavement packet [] Provided Bible/devotional materials [] Provided toy/stuffed animal, coloring book to patient or family member [] Provided Communion [] Anointing/Lily [] Salvation [x] Completed spiritual assessment [] Other: Impact on Illness or Injury [] Angry [] Fearful [] Anxious [] Often cries [] Exhaustion [] Unable to work [] Unable to attend methodist [] Unable to walk/stand [] Unable to read [] Unable to drive [] Unable to eat/drink [] Unable to sleep [] Unable to be with family [] Patient intubated [] Other: Summary Time spent with patient 5 min
--- NOTE | 2024-12-21 11:34 | P.PN_ITS ---
<Statement entered by Yogesh Wilcox M.D - 12/24/24 10:16> Patient was cared for in conjunction with an advanced practice practitioner.? I reviewed the chart and all pertinent data including imaging, telemetry, and laboratory results.? I discussed the patient in detail with the advanced practice practitioner.? Please see?their note for progress note, testing results and agreed upon plan of care for the patient. Subjective 2 Subjective: He underwent coronary angiogram yesterday: PCI to proximal RCA using lithotripsy and drug-eluting stent 2 overlapping postdilated with noncompliant balloon. PCI to mid LAD with drug-eluting stent postdilated noncompliant balloon. Balloon angioplasty to groove circumflex. PCI to proximal to mid ramus intermedius with drug-eluting stent postdilated with noncompliant balloon. No chest pain or pressure. Still has leg pain, pulses present by doppler. No complications right radial cath site. Vitals/I&O/Wt Last Vital Signs Temp 97.7 F 12/21/24 07:26 Pulse 72 12/21/24 07:26 Resp 16 12/21/24 09:01 BP 152/60 12/21/24 07:26 Pulse Ox 94 12/21/24 09:01 O2 Del Method Room Air 12/20/24 16:00 12/20/24 12/21/24 12/21/24 22:59 06:59 14:59 Intake Total 2210 / 3040.8 250 / 3040.8 Output Total 1900 / 3350 950 / 950 Balance 310 / -309.2 250 / -309.2 -950 / -950 Weight last 48 hrs Weight 198 lb 4.8 oz Physical Exam 2 Const: COMMON NORMALS: no acute distress and patient oriented x3 GENERAL APPEARANCE: cooperative ORIENTATION/CONSCIOUSNESS: Yes awake, Yes oriented to person, Yes oriented to place and Yes oriented to time Chest: COMMONS NORMALS: normal inspection of the chest and normal palpation of entire chest wall CHEST: Yes Symmetrical chest wall rise Resp: COMMON NORMALS: normal respiratory effort, No retractions, No use of accessory muscles and clear to auscultation bilaterally AUSCULTATION: clear to auscultation bilaterally Cardio: COMMON NORMALS: regular rate, regular rhythm, S1 normal heart sound present, S2 normal heart sound present, No gallops present (Cardio), No clicks present (Cardio), No murmurs present (Cardio) and No rub (Cardio) RATE: r egular rate RHYTHM: regular rhythm HEART SOUNDS: S1 normal heart sound present and S2 normal heart sound present PERIPHERAL PULSES: radial pulses present positive right 2+ and femoral pulses present positive right 2+ Neuro: COMMON NORMALS: patient oriented x3 and moves all extremities S ENSORIUM/ORIENTATION: Yes oriented to person, Yes oriented to place and Yes oriented to time Skin: WOUNDS: Yes surgical site (no hematoma palpable) Details: no odor Data 12/21/24 03:43 12/21/24 03:43 Micro: Microbiology 12/21/24 09:36 Blood Culture - Preliminary Blood SPECIMEN COLLECTED 12/21/24 09:35 Blood Culture - Preliminary Blood SPECIMEN COLLECTED A&P Assessment and plan 1. Peripheral arterial disease: 2. Tobacco dependence: 3. Cellulitis: 4. Gas gangrene of foot: 5. Hypertension: Plan: No chest pain after PCI of RCA, LAD, mid ramus, balloon angioplasty of circumflex. Anticipate supera stent to arrive later in the week. He will have staged intervention of left common femoral when the stent arrives. He is requiring significant amount of pain control medications, had one febrile temperature documented yesterday, no fever today or currently. Procalcitonin low, WBC elevated. No surgical procedure planned at this time. PDMP PDMP Reviewed: Not Reviewed Attestations 2 Medical Necessity Statement*: pad, revascularization, stent planned Coding Level of Care Code Acute Code for [facility] Diagnoses Peripheral arterial disease I73.9 Tobacco dependence F17.200 Cellulitis L03.90 Gas gangrene of foot A48.0 Hypertension I10
[2024-12-21 13:38] LABS: Coronavirus 229E,HKU1,NL63,OC4 Not Detected (NOT DETECT); Parainfluenza Virus Type 1 Not Detected (NOT DETECT); Parainfluenza Virus Type 2 Not Detected (NOT DETECT); Parainfluenza Virus Type 3 Not Detected (NOT DETECT); Parainfluenza Virus Type 4 Not Detected (NOT DETECT); SARS-COV-2 Not Detected (NOT DETECT)
--- NOTE | 2024-12-21 14:23 | P.PN_ITS ---
Subjective 2 Subjective: Patient was seen this morning, currently alert oriented x 3, following all commands, denies any fevers, no chills, no nausea, no vomiting, continues to complain of left lower extremity pain, no chest pain, no abdominal pain Vitals/I&O/Wt Last Vital Signs Temp 98.6 F 12/21/24 12:00 Pulse 72 12/21/24 12:00 Resp 17 12/21/24 12:00 BP 160/77 12/21/24 12:00 Pulse Ox 98 12/21/24 12:00 O2 Del Method Room Air 12/20/24 16:00 12/20/24 12/21/24 12/21/24 22:59 06:59 14:59 Intake Total 2210 / 2790.8 250 / 3040.8 1230 / 1230 Output Total 1900 / 3350 950 / 950 Balance 310 / -559.2 250 / -309.2 280 / 280 Weight last 48 hrs Weight 89.947 kg Physical Exam 2 Const: COMMON NORMALS: no acute distress and patient oriented x3 Resp: COMMON NORMALS: normal respiratory effort, No retractions, No use of accessory muscles and clear to auscultation bilaterally AUSCULTATION: clear to auscultation bilaterally Cardio: COMMON NORMALS: regular rate, regular rhythm, S1 normal heart sound present and S2 normal heart sound present RATE: regular rate RHYTHM: r egular rhythm HEART SOUNDS: S1 normal heart sound present and S2 normal heart sound present GI: COMMON NORMALS: Normal to inspection, nondistended, normoactive bowel sounds present and non-tender Extremity: COMMON NORMALS: no pedal edema NARRATIVE EXTREMITY EXAM: Left lower extremity - Left ankle erythema, swelling, tendern ess, warmth extending up mid cannon - Left lateral foot, erythema, swelling, tenderness, warmth, crepitus - Throughout the left foot, erythema, sw elling, crepitus throughout the left foot - DP PT pulses palpable Right lower extremity, DP PT pulses palpable Neuro: COMMON NORMALS: patient oriented x3, CN's II-XII intact bilaterally and moves all extremities Psych: COMMON NORMALS: mental status grossly normal Data 12/21/24 03:43 12/21/24 03:43 Micro: Microbiology 12/21/24 09:36 Blood Culture - Preliminary Blood SPECIMEN COLLECTED 12/21/24 09:35 Blood Culture - Preliminary Blood SPECIMEN COLLECTED A&P Assessment and plan 1. Hypertension: 2. Atrial fibrillation: 3. Unstable angina: 4. Diabetic foot ulcer: 5. Diabetic ulcer of foot associated with diabetes mellitus due to underlying condition, with fat layer exposed: 6. Cellulitis: 7. Peripheral neuropathy: 8. Acute lower limb ischemia: 9. Osteomyelitis: 10. Diabetic foot infection: 11. Gas gangrene of foot: 12. Left renal artery stenosis: 13. Superior mesenteric artery stenosis: 14. Peripheral arterial disease: Plan: Unstable angina, NSTEMI -Currently chest pain-free - Serial EKGs, serial troponins, telemetry monitoring - 6-hour troponin 42.3, T wave changes in lateral leads Cardiac echo CONCLUSIONS 1. Segmental wall motion abnormality of the left ventricle with hypokinesis of the mid and basal inferior and inferolateral wall segments. Globally, normal LV systolic function with EF of 53%. 2. No significant valvular abnormalities. Status post coronary angiography Left main: No significant disease LAD has luminal irregularity with mid high-grade stenosis Ramus intermedius is subtotally occluded Left circumflex has luminal irregularities, obtuse marginal luminal irregularity, groove circumflex has high-grade stenosis it is small caliber vessels RCA is dominant large caliber vessel with high-grade calcified lesion in the proximal segment PCI to proximal RCA using lithotripsy and drug-eluting stent 2 overlapping postdilated with noncompliant balloon. PCI to mid LAD with drug-eluting stent postdilated noncompliant balloon Balloon angioplasty to groove circumflex PCI to proximal to mid ramus intermedius with drug-eluting stent postdilated with noncompliant balloon Overall good angiographic result noted. BRENDAN-3 flow was confirmed in all the vessels without any complication. Plan - Aspirin, statin, Plavix - Heparin drip will be discontinued, transition to DVT prophylaxis - Cardiology consulted Acute versus chronic lower limb ischemia Arterial ultrasound on 12/07/2024 - Good DP PT pulses bilaterally US/[place] [id number] IMPRESSION: Stenosis in the 75-99% range left common femoral artery. JOSELINE indicates moderate to severe peripheral arterial disease left lower extremity. Monophasic waveforms and spectral broadening l throughout the left lower extremity. CT aortogram bilateral extremities 3. Peripheral vascular disease as described above with findings including occlusion of the distal left common femoral artery Severe stenosis of the distal left superficial femoral artery and also of the distal left popliteal artery, and occlusion of the distal right superficial femoral artery. - Status post peripheral angiogram and intervention by , 12/18/2024 High-grade complete occlusion of left distal common femoral with highly calcified lesion High-grade distal lesion of the left SFA around 90% High-grade lesion of the mid to distal popliteal around 80 to 90% Occluded proximal to distal left anterior tibial vessels reconstitute at the distal end through the peroneal Intravascular lithotripsy and balloon angioplasty of popliteal distal SFA and common femoral left arteries. We got good results however left common femoral artery there appeared to be still 50 to 60% residual stenosis though it has much improved after lithotripsy and balloon angioplasty as it was completely occluded, it would be requiring supera stent which we do not have on the shelf. We will order that stent and bring him back for left common femoral artery treatment as it is around the joint and we would not like to put balloon expandable stent at this location. At the end of the case we have good flow all the way to the foot. Plan - Active rewarming - Continue to Doppler DP PT pulses - Aspirin, statin, Plavix -Dilaudid for pain control - Cardiology consulted Left renal artery stenosis - Will have to follow-up with vascular surgery as outpatient Moderate superior mesenteric artery stenosis - Monitor for symptoms of mesenteric ischemia Right lower extremity lower extremities diabetic ulcers - With concerns for cellulitis CT right foot CT/CT foot RT wo con* [id number] IMPRESSION: 1. No acute fracture 2. Small soft tissue ulcer on the plantar aspect of the foot. Please correlate clinically. 3. No fluid collection or abscess is identified 4. No soft tissue gas is identified Plan - Vancomycin - Meropenem - Wound care Left lower extremity diabetic foot infection, with gas gangrene seen left plantar aspect soft tissue, extending along lateral aspect of plantar foot FINDINGS: Bones/joints: No fracture or specific destructive lesion is seen in the foot to suggest active osteomyelitis. Soft tissues: There is diffuse subcutaneous edema throughout the foot especially along the posterior and plantar aspect of the heel. There are bubbles of abnormal soft tissue gas in the plantar soft tissues extending along the lateral aspect of the posterior foot consistent with gas gangrene. There is also a prominent soft tissue ulcer along posteromedial aspect of the heel. There is some radiopaque material within this ulcer which may represent dressing or ointment in the wound appears to be packed with gauze. Other findings: There is no fluid collection to suggest presence of abscess. Current smoker, smoking cessation counseling -With peripheral arterial disease left lower extremity with revascularization as above -Now with increasing leukocytosis 17.36, febrile, evidence of worsening erythema/swelling, warmth, crepitus left lower extremity now with evidence of sepsis, ESR 130, CRP 155. Pro-Thierry 0.152 -Left foot culture showing Staph aureus, Enterococcus faecalis - Plan - Orthopedic service consulted - Orthopedic service recommends left below-knee amputation, patient understands after discussing risk and benefits, plan on proceeding tomorrow morning - Follow-up blood cultures - Vancomycin - Meropenem Type 2 diabetes mellitus, low-dose sliding scale Atrial fibrillation seen on EKG, rate controlled, reviewed by cardiology, no significant evidence of atrial fibrillation - Cardiology consulted Full code Lovenox for DVT prophylaxis PDMP PDMP Reviewed: Not Reviewed Attestations 2 Medical Necessity Statement*: Patient requires hospitalization for left lower extremity diabetic foot infection, with gas gangrene, going for BKA tomorrow Diagnoses Hypertension I10 Atrial fibrillation I48.91 Unstable angina I20.0 Diabetic foot ulcer E11.621; L97.509 Diabetic ulcer of foot associated with diabetes mellitus due to underlying condition, with fat layer exposed E08.621; L97.502 Cellulitis L03.90 Peripheral neuropathy G62.9 Acute lower limb ischemia I99.8 Osteomyelitis M86.9 Diabetic foot infection E11.628; L08.9 Gas gangrene of foot A48.0 Left renal artery stenosis I70.1 Superior mesenteric artery stenosis K55.1 Peripheral arterial disease I73.9
[2024-12-22] VITALS (11 sets, daily range): BP systolic 142–175; BP diastolic 76–88; PULSE 63–73; RESP 14–22; TEMP 36.7–36.9; O2SAT 95–98
[2024-12-22] MEDS: oxyCODONE 5 mg IR Tab/Cap PO ×4 (00:52→20:56)
[2024-12-22] MEDS: pantoprazole 40 mg SDV IVP (03:22)
[2024-12-22 03:30] LABS: Hematocrit 28.3 % (37-53); Hemoglobin 9.40 g/dL (11.27-16.99); Mean Corpuscular HGB Conc 33.2 g/dL (30-55); Mean Corpuscular Hemoglobin 30.8 pg (27-33); Mean Corpuscular Volume 92.8 fl (82-101); Nucleated Red Blood Cells % 0 %; Platelet Count 474 10^3/cmm (157-399); Red Blood Count 3.05 10^6/uL (3.85-5.65); White Blood Count 16.41 10^3/uL (3.29-11.43)
[2024-12-22 04:00] LABS: Alanine Aminotransferase 26 U/L (0-41); Albumin Level 2.2 g/dL (3.5-5.2); Alkaline Phosphatase 113 U/L (40-130); Anion Gap 16.7 (5-19); Aspartate Amino Transferase 27 U/L (0-40); Blood Urea Nitrogen 14 mg/dL (8-23); Calcium 7.7 mg/dL (8.5-10.5); Carbon Dioxide 19 mmol/L (22-29); Chloride 106 mmol/L (98-107); Creatinine Clr Calc Pharmacy 83.7185; Globulin 3.8 g/dL (1.3-4.6); Glucose 140 mg/dL (65-115); NT Pro B Type Natriuretic Pept 12707 pg/mL (0-125); Osmolality Calculated 289 mOsm/kg (285-295); Potassium 3.7 mmol/L (3.5-5.1); Sodium 138 mmol/L (136-145); Total Protein 6.0 g/dL (6.6-8.7)
[2024-12-22] MEDS: HYDROmorphone 0.5 MG/0.5 ML INJ 1 MG IVP ×4 (08:00→23:00)
[2024-12-22] MEDS: FUROsemide 10 mg/mL SDV 4mL 40 MG IVP (08:09)
--- NOTE | 2024-12-22 09:15 | P.PN_ITS ---
<Statement entered by Yogesh Wilcox M.D - 12/24/24 10:47> Patient was cared for in conjunction with an advanced practice practitioner.? I reviewed the chart and all pertinent data including imaging, telemetry, and laboratory results.? I discussed the patient in detail with the advanced practice practitioner.? Please see?their note for progress note, testing results and agreed upon plan of care for the patient. Subjective 2 Subjective: No events overnight. Still has leg pain. Vitals/I&O/Wt Last Vital Signs Temp 98.2 F 12/22/24 08:00 Pulse 69 12/22/24 08:00 Resp 20 H 12/22/24 08:00 BP 175/76 12/22/24 08:00 Pulse Ox 96 12/22/24 08:00 O2 Del Method Room Air 12/22/24 04:00 12/21/24 12/22/24 12/22/24 22:59 06:59 14:59 Intake Total 618.333 / 3218.333 1370 / 3218.333 631.667 / 631.667 Output Total 900 / 2300 450 / 2300 Balance -281.667 / 918.333 920 / 918.333 631.667 / 631.667 Weight last 48 hrs Weight 197 lb 4.8 oz Physical Exam 2 Const: COMMON NORMALS: no acute distress and patient oriented x3 GENERAL APPEARANCE: cooperative and comfortable ORIENTATION/CONSCIOUSNESS: Yes awake, Yes oriented to person, Yes oriented to place and Yes oriented to time Chest: COMMONS NORMALS: normal inspection of the chest and normal palpation of entire chest wall CHEST: Yes Symmetrical chest wall rise Resp: COMMON NORMALS: normal respiratory effort, No retractions, No use of accessory muscles and clear to auscultation bilaterally EFFORT & INSPECTION: Yes symmetric chest movement AUSCULTATION: clear to auscultation bilaterally Cardio: COMMON NORMALS: regular rate, regular rhythm, S1 normal heart sound present, S2 normal heart sound present, No gallops present (Cardio), No clicks present (Cardio), No murmurs present (Cardio) and No rub (Cardio) RATE: r egular rate RHYTHM: regular rhythm HEART SOUNDS: S1 normal heart sound present and S2 normal heart sound present PERIPHERAL PULSES: radial pulses present Extremity: COMMON NORMALS: no pedal edema Neuro: COMMON NORMALS: patient oriented x3 and moves all extremities S ENSORIUM/ORIENTATION: Yes oriented to person, Yes oriented to place and Yes oriented to time Data 12/22/24 03:15 12/22/24 03:15 Micro: Microbiology 12/21/24 09:36 Blood Culture - Preliminary Blood SPECIMEN COLLECTED 12/21/24 09:35 Blood Culture - Preliminary Blood SPECIMEN COLLECTED A&P Assessment and plan 1. Peripheral arterial disease: 2. Tobacco dependence: 3. Chronic heart failure with mildly reduced ejection fraction (HFmrEF): 4. Hypertension: 5. Elevated brain natriuretic peptide (BNP) level: 6. Gas gangrene of foot: Plan: Left BKA planned for tomorrow. He cannot stop aspirin and Plavix due to recent stenting of RCA, LAD and ramus intermedius. Continue carvedilol, aspirin, Plavix, statin. BNP elevated, does not appear volume overloaded. PDMP PDMP Reviewed: Not Reviewed Attestations 2 Medical Necessity Statement*: management of left foot ischemia, s/p lithotripsy. s/p lhc, stents Coding Level of Care Code Acute Code for [facility] Fwd Diagnoses Peripheral arterial disease I73.9 Tobacco dependence F17.200 Chronic heart failure with mildly reduced ejection fraction (HFmrEF) I50.22 Hypertension I10 Elevated brain natriuretic peptide (BNP) level R79.89 Gas gangrene of foot A48.0
--- NOTE | 2024-12-22 09:45 | PC.NURSE ---
received verbal order from Dr Ford to give additional 1mg dilaudid IVP now once.
[2024-12-22] MEDS: lidocaine 1% 5 ML in potassium chloride premix 100 ML 52.5 ML IV ×2 (10:01→12:07)
--- NOTE | 2024-12-22 11:34 | PC.NURSE ---
patient resting with eyes closed. Appears to be more comfortable at this time.
--- NOTE | 2024-12-22 13:16 | P.PN_ITS ---
Subjective 2 Subjective: Patient was seen this morning, currently she is alert oriented x 3, following all commands, denies any fevers, no chills, does complain of severe pain in his left lower leg, especially at the ball of his foot, patient's sisters are at bedside, had a detailed discussion with sisters about patient's clinical progress during his hospitalization, worsening clinical examination of left lower extremity, detailed discussion with patient and I in orthopedics about proceeding with left below-knee amputation, due to worsening leukocytosis, worsening clinical exam despite being on IV antibiotics, improved blood flow after vascular intervention, given that Fabien had febrile state 12/20, with worsening leukocytosis, clinical examination of left foot, he had increased erythema, crepitus, pain, extending up to the mid cannon. Concern for worsening cellulitis, deep tissue infection, gas gangrene after detailed discussion, patient is agreeable to proceed with below-knee amputation. Family is in agreement to proceed with left below-knee amputation, I apologized to the patient as I thought the surgical date would have been today, but it will be tomorrow morning. Patient was showing some, congestion, agreed to proceed, n.p.o. midnight tonight. Did discuss with patient and family that unfortunately Plavix cannot be held for his surgery, given his CAD and cardiac stenting. Thus he has an increased surgical risk, increased risk of bleeding during and after surgery. However I had a discussion with cardiology, and Plavix cannot be held. After discussing the risk and benefits, patient and family voiced understanding, all questions answered, agreed to proceed Vitals/I&O/Wt Last Vital Signs Temp 98.2 F 12/22/24 08:00 Pulse 66 12/22/24 12:00 Resp 20 H 12/22/24 12:07 BP 157/83 12/22/24 12:00 Pulse Ox 97 12/22/24 12:00 O2 Del Method Room Air 12/22/24 04:00 12/21/24 12/22/24 12/22/24 22:59 06:59 14:59 Intake Total 618.333 / 4223.413 7032 / 3218.333 1091.667 / 1091.667 Output Total 900 / 1850 450 / 2300 Balance -281.667 / -1.667 920 / 869.256 1008.667 / 1091.667 Weight last 48 hrs Weight 89.494 kg Physical Exam 2 Const: COMMON NORMALS: no acute distress and patient oriented x3 Resp: COMMON NORMALS: normal respiratory effort, No retractions, No use of accessory muscles and clear to auscultation bilaterally AUSCULTATION: clear to auscultation bilaterally Cardio: COMMON NORMALS: regular rate, regular rhythm, S1 normal heart sound present and S2 normal heart sound present RATE: regular rate RHYTHM: r egular rhythm HEART SOUNDS: S1 normal heart sound present and S2 normal heart sound present GI: COMMON NORMALS: Normal to inspection, nondistended, normoactive bowel sounds present and non-tender Extremity: NARRATIVE EXTREMITY EXAM: Left lower extremity Mid cannon erythema improving Left ankle erythema present, tenderness present No calf tenderness, or erythema Left foot, wrapped But area throughout left foot under dressing, throughout left foot has significant erythema, swelling, diffuse tenderness, crepitus, Left calcaneus significant erythema, swelling, tenderness, crepitus Neuro: COMMON NORMALS: patient oriented x3 Psych: COMMON NORMALS: mental status grossly normal Data 12/22/24 03:15 12/22/24 03:15 Micro: Microbiology 12/17/24 13:00 Blood Culture - Final Blood NO GROWTH AFTER 5 DAYS 12/17/24 13:01 Blood Culture - Final Blood NO GROWTH AFTER 5 DAYS 12/21/24 09:36 Blood Culture - Preliminary Blood NEGATIVE TO DATE 12/21/24 09:35 Blood Culture - Preliminary Blood NEGATIVE TO DATE A&P Assessment and plan 1. Hypertension: 2. Atrial fibrillation: 3. Unstable angina: 4. Diabetic foot ulcer: 5. Diabetic ulcer of foot associated with diabetes mellitus due to underlying condition, with fat layer exposed: 6. Cellulitis: 7. Peripheral neuropathy: 8. Acute lower limb ischemia: 9. Osteomyelitis: 10. Diabetic foot infection: 11. Gas gangrene of foot: 12. Left renal artery stenosis: 13. Superior mesenteric artery stenosis: 14. Peripheral arterial disease: Plan: Unstable angina, NSTEMI -Currently chest pain-free - Serial EKGs, serial troponins, telemetry monitoring - 6-hour troponin 42.3, T wave changes in lateral leads Cardiac echo CONCLUSIONS 1. Segmental wall motion abnormality of the left ventricle with hypokinesis of the mid and basal inferior and inferolateral wall segments. Globally, normal LV systolic function with EF of 53%. 2. No significant valvular abnormalities. Status post coronary angiography Left main: No significant disease LAD has luminal irregularity with mid high-grade stenosis Ramus intermedius is subtotally occluded Left circumflex has luminal irregularities, obtuse marginal luminal irregularity, groove circumflex has high-grade stenosis it is small caliber vessels RCA is dominant large caliber vessel with high-grade calcified lesion in the proximal segment PCI to proximal RCA using lithotripsy and drug-eluting stent 2 overlapping postdilated with noncompliant balloon. PCI to mid LAD with drug-eluting stent postdilated noncompliant balloon Balloon angioplasty to groove circumflex PCI to proximal to mid ramus intermedius with drug-eluting stent postdilated with noncompliant balloon Overall good angiographic result noted. BRENDAN-3 flow was confirmed in all the vessels without any complication. Plan - Aspirin, statin, Plavix - transition to DVT prophylaxis - Cardiology consulted Acute versus chronic lower limb ischemia Arterial ultrasound on 12/07/2024 - Good DP PT pulses bilaterally US/CV arterial duplex [facility] [id number] IMPRESSION: Stenosis in the 75-99% range left common femoral artery. JOSELINE indicates moderate to severe peripheral arterial disease left lower extremity. Monophasic waveforms and spectral broadening l throughout the left lower extremity. CT aortogram bilateral extremities 3. Peripheral vascular disease as described above with findings including occlusion of the distal left common femoral artery Severe stenosis of the distal left superficial femoral artery and also of the distal left popliteal artery, and occlusion of the distal right superficial femoral artery. - Status post peripheral angiogram and intervention by , 12/18/2024 High-grade complete occlusion of left distal common femoral with highly calcified lesion High-grade distal lesion of the left SFA around 90% High-grade lesion of the mid to distal popliteal around 80 to 90% Occluded proximal to distal left anterior tibial vessels reconstitute at the distal end through the peroneal Intravascular lithotripsy and balloon angioplasty of popliteal distal SFA and common femoral left arteries. We got good results however left common femoral artery there appeared to be still 50 to 60% residual stenosis though it has much improved after lithotripsy and balloon angioplasty as it was completely occluded, it would be requiring supera stent which we do not have on the shelf. We will order that stent and bring him back for left common femoral artery treatment as it is around the joint and we would not like to put balloon expandable stent at this location. At the end of the case we have good flow all the way to the foot. Plan - Active rewarming - Continue to Doppler DP PT pulses - Aspirin, statin, Plavix -Dilaudid for pain control - Cardiology consulted occlusion of the distal right superficial femoral artery - Right DP PT pulses palpable - Continue to monitor closely - Is on aspirin, statin, Plavix - Will need to follow-up with cardiology as outpatient for revascularization Left renal artery stenosis - Will have to follow-up with vascular surgery as outpatient Moderate superior mesenteric artery stenosis - Monitor for symptoms of mesenteric ischemia Right lower extremity lower extremities diabetic ulcers - With concerns for cellulitis CT right foot CT/CT foot RT wo con* [id number] IMPRESSION: 1. No acute fracture 2. Small soft tissue ulcer on the plantar aspect of the foot. Please correlate clinically. 3. No fluid collection or abscess is identified 4. No soft tissue gas is identified Plan - Vancomycin - Meropenem - Wound care Left lower extremity diabetic foot infection, with gas gangrene seen left plantar aspect soft tissue, extending along lateral aspect of plantar foot FINDINGS: Bones/joints: No fracture or specific destructive lesion is seen in the foot to suggest active osteomyelitis. Soft tissues: There is diffuse subcutaneous edema throughout the foot especially along the posterior and plantar aspect of the heel. There are bubbles of abnormal soft tissue gas in the plantar soft tissues extending along the lateral aspect of the posterior foot consistent with gas gangrene. There is also a prominent soft tissue ulcer along posteromedial aspect of the heel. There is some radiopaque material within this ulcer which may represent dressing or ointment in the wound appears to be packed with gauze. Other findings: There is no fluid collection to suggest presence of abscess. Current smoker, smoking cessation counseling -With peripheral arterial disease left lower extremity with revascularization as above -Now with increasing leukocytosis 17.36, febrile, evidence of worsening erythema/swelling, warmth, crepitus left lower extremity now with evidence of sepsis, ESR 130, CRP 155. Pro-Thierry 0.152 -Left foot culture showing Staph aureus, Enterococcus faecalis - Plan - Orthopedic service consulted - Orthopedic service recommends left below-knee amputation, patient understands after discussing risk and benefits, plan on proceeding tomorrow morning - Follow-up blood cultures - Vancomycin - Meropenem Type 2 diabetes mellitus, low-dose sliding scale Atrial fibrillation seen on EKG, rate controlled, reviewed by cardiology, no significant evidence of atrial fibrillation - Cardiology consulted Full code Lovenox for DVT prophylaxis PDMP PDMP Reviewed: Not Reviewed Attestations 2 Medical Necessity Statement*: Patient requires hospitalization for left lower extremity below-knee amputation Diagnoses Hypertension I10 Atrial fibrillation I48.91 Unstable angina I20.0 Diabetic foot ulcer E11.621; L97.509 Diabetic ulcer of foot associated with diabetes mellitus due to underlying condition, with fat layer exposed E08.621; L97.502 Cellulitis L03.90 Peripheral neuropathy G62.9 Acute lower limb ischemia I99.8 Osteomyelitis M86.9 Diabetic foot infection E11.628; L08.9 Gas gangrene of foot A48.0 Left renal artery stenosis I70.1 Superior mesenteric artery stenosis K55.1 Peripheral arterial disease I73.9
--- NOTE | 2024-12-22 16:40 | P.PN_ITS ---
Subjective 2 Subjective: Fabien is still in the hospital for care of his cardiac situation as well as peripheral vascular disease and nonhealing left heel diabetic foot ulcer. He continues on IV antibiotics. He continues to have pain problems and difficulties with left lower extremity. He is still complaining of pain in his calf region all the way down to his foot and ankle region. Vitals/I&O/Wt Last Vital Signs Temp 98.1 F 12/22/24 15:47 Pulse 72 12/22/24 15:47 Resp 17 12/22/24 15:47 BP 162/77 12/22/24 15:47 Pulse Ox 98 12/22/24 15:47 O2 Del Method Room Air 12/22/24 04:00 12/22/24 12/22/24 12/22/24 06:59 14:59 22:59 Intake Total 1370 / 3218.333 1446.667 / 1446.667 Output Total 450 / 2300 Balance 920 / 000.331 6493.667 / 1446.667 Weight last 48 hrs Weight 197 lb 4.8 oz Physical Exam 2 Narrative: On exam today ulceration of his foot is unchanged. 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 Leg does feel warm today however he is under quite a few blankets and has been this way for a while. His room is warm also. Left foot and ankle are tender to palpation. Data 12/22/24 03:15 12/22/24 03:15 Micro: Microbiology 12/17/24 13:00 Blood Culture - Final Blood NO GROWTH AFTER 5 DAYS 12/17/24 13:01 Blood Culture - Final Blood NO GROWTH AFTER 5 DAYS 12/21/24 09:36 Blood Culture - Preliminary Blood NEGATIVE TO DATE 12/21/24 09:35 Blood Culture - Preliminary Blood NEGATIVE TO DATE A&P Assessment and plan 1. Non-healing open wound of left heel, subsequent encounter: Patient has nonhealing diabetic foot ulcer of the left lower extremity. This is located on his heel. He also has peripheral vascular disease to this area. Though it has been revascularized recently he still is not demonstrating enough signs of perfusion in order to heal the wound on his foot region. Therefore at this time is been offered a below-knee amputation on the side to try and alleviate his pain and treat his nonhealing foot ulcer. Plan: Plan at this time is for below-knee amputation left lower extremity this will be done tomorrow. All risk benefits treatment alternatives been discussed with he and his significant other. They are both agreeable to it at this time. PDMP PDMP Reviewed: Not Reviewed Attestations 2 Medical Necessity Statement*: Patient in need of further cardiac care as well as below-knee amputation secondary to nonhealing infected diabetic ulcer left foot Coding Level of Care Code Acute Code for [facility] Fwd Diagnoses Non-healing open wound of left heel, subsequent encounter S91.302D Encounter type: subsequent encounter Laterality: left
[2024-12-23] VITALS (21 sets, daily range): BP systolic 123–165; BP diastolic 57–85; PULSE 56–129; RESP 14–25; TEMP 35.6–37.1; O2SAT 90–97
[2024-12-23] MEDS: oxyCODONE 5 mg IR Tab/Cap PO ×2 (01:53→20:28)
[2024-12-23 04:04] LABS: Hematocrit 32.0 % (37-53); Hemoglobin 10.50 g/dL (11.27-16.99); Mean Corpuscular HGB Conc 32.8 g/dL (30-55); Mean Corpuscular Hemoglobin 30.7 pg (27-33); Mean Corpuscular Volume 93.6 fl (82-101); Nucleated Red Blood Cells % 0 %; Platelet Count 539 10^3/cmm (157-399); Red Blood Count 3.42 10^6/uL (3.85-5.65); White Blood Count 14.54 10^3/uL (3.29-11.43)
[2024-12-23] MEDS: pantoprazole 40 mg SDV IVP (04:07)
[2024-12-23 04:32] LABS: Alanine Aminotransferase 42 U/L (0-41); Albumin Level 2.4 g/dL (3.5-5.2); Alkaline Phosphatase 136 U/L (40-130); Anion Gap 16.8 (5-19); Aspartate Amino Transferase 32 U/L (0-40); Blood Urea Nitrogen 12 mg/dL (8-23); Calcium 8.2 mg/dL (8.5-10.5); Carbon Dioxide 21 mmol/L (22-29); Chloride 102 mmol/L (98-107); Creatinine Clr Calc Pharmacy 93.9694; Globulin 4.3 g/dL (1.3-4.6); Glucose 143 mg/dL (65-115); NT Pro B Type Natriuretic Pept 6879 pg/mL (0-125); Osmolality Calculated 284 mOsm/kg (285-295); Potassium 3.8 mmol/L (3.5-5.1); Sodium 136 mmol/L (136-145); Total Protein 6.7 g/dL (6.6-8.7)
[2024-12-23] MEDS: HYDROmorphone 0.5 MG/0.5 ML INJ 1 MG IVP ×2 (08:41→18:15)
--- NOTE | 2024-12-23 11:02 | P.PN_ITS ---
<Statement entered by Yogesh Wilcox M.D - 12/24/24 12:08> Patient was cared for in conjunction with an advanced practice practitioner.? I reviewed the chart and all pertinent data including imaging, telemetry, and laboratory results.? I discussed the patient in detail with the advanced practice practitioner.? Please see?their progress note, testing results and agreed upon plan of care for the patient. Subjective 2 Subjective: Will have L BKA today. No chest pain. Vitals/I&O/Wt Last Vital Signs Temp 98.4 F 12/23/24 08:00 Pulse 67 12/23/24 08:00 Resp 20 H 12/23/24 08:00 BP 148/62 12/23/24 08:00 Pulse Ox 93 12/23/24 07:20 O2 Del Method Room Air 12/23/24 07:20 12/22/24 12/23/24 12/23/24 22:59 06:59 14:59 Intake Total 360 / 2156.667 350.000 / 2156.667 Output Total 2400 / 3250 850 / 3250 Balance -2040 / -1093.333 -500.000 / -1093.333 Weight last 48 hrs Weight 196 lb 4.8 oz Weight 197 lb 4.8 oz Physical Exam 2 Const: COMMON NORMALS: no acute distress and patient oriented x3 GENERAL APPEARANCE: cooperative and comfortable ORIENTATION/CONSCIOUSNESS: Yes awake, Yes oriented to person, Yes oriented to place and Yes oriented to time Chest: COMMONS NORMALS: normal inspection of the chest and normal palpation of entire chest wall CHEST: Yes Symmetrical chest wall rise Resp: COMMON NORMALS: normal respiratory effort, No retractions, No use of accessory muscles and clear to auscultation bilaterally EFFORT & INSPECTION: Yes symmetric chest movement AUSCULTATION: clear to auscultation bilaterally Cardio: COMMON NORMALS: regular rate, regular rhythm, S1 normal heart sound present, S2 normal heart sound present, No gallops present (Cardio), No clicks present (Cardio), No murmurs present (Cardio) and No rub (Cardio) RATE: r egular rate RHYTHM: regular rhythm HEART SOUNDS: S1 normal heart sound present and S2 normal heart sound present PERIPHERAL PULSES: radial pulses present Neuro: COMMON NORMALS: patient oriented x3 and moves all extremities S ENSORIUM/ORIENTATION: Yes oriented to person, Yes oriented to place and Yes oriented to time Data 12/23/24 03:57 12/23/24 03:57 Micro: Microbiology 12/17/24 13:00 Blood Culture - Final Blood NO GROWTH AFTER 5 DAYS 12/17/24 13:01 Blood Culture - Final Blood NO GROWTH AFTER 5 DAYS 12/21/24 09:36 Blood Culture - Preliminary Blood NEGATIVE TO DATE 12/21/24 09:35 Blood Culture - Preliminary Blood NEGATIVE TO DATE A&P Assessment and plan 1. Peripheral arterial disease: 2. Tobacco dependence: 3. Coronary artery disease: 4. Diabetic foot infection: 5. Gas gangrene of foot: Plan: Doing well from cardiac perspective. Continue aspirin, Plavix, carvedilol, statin. PDMP PDMP Reviewed: Not Reviewed Attestations 2 Medical Necessity Statement*: planned surgery today Coding Level of Care Code Acute Code for [facility] Diagnoses Peripheral arterial disease I73.9 Tobacco dependence F17.200 Coronary artery disease I25.10 Diabetic foot infection E11.628; L08.9 Gas gangrene of foot A48.0
--- NOTE | 2024-12-23 12:09 | PC.SOCIAL ---
IMM Updated Updated pt on IMM. No questions voiced. Provided pt a copy. Initialed, dated, & timed copy in chart.
--- NOTE | 2024-12-23 12:11 | PC.NURSE ---
Patient taken to surgery at 1205.
--- NOTE | 2024-12-23 12:16 | W.PM.OPSUD ---
Surgery/Procedure H&P Update DATE OF PROCEDURE: December 23, 2024 DATE H&P PERFORMED: 12/17/24 H&P UPDATE INFORMATION: I have reviewed H&P completed within last 30 days, I have examined patient prior to procedure and No changes to prior documentation PREOP DIAGNOSIS: LV dysfunction, CAD, non-STEMI, PRIMARY INDICATION FOR PROCEDURE: Peripheral vascular disease of lower extremity, nonhealing diabetic ulcer left foot PLANNED PROCEDURE: Operation Date: 12/18/24 07:00 Proposed Procedures p Peripheral Diagnostic(Not Applicable) - Clovis Fajardo MD Operation Date: 12/20/24 06:00 Proposed Procedures p Cardiac Catheterization(Left) - Clovis Fajardo MD Operation Date: 12/23/24 13:05 Proposed Procedures p Below Knee Amputation(Left) - Hao Plummer MD
--- NOTE | 2024-12-23 12:37 | ANES.PREANE2 ---
Pre-Anesthetic Assessment Height/Weight: Height 1.78 m Weight 89.04 kg Temp Pulse Resp BP Pulse Ox O2 Del Method 98.1 F 68 17 163/74 93 Room Air 12/23/24 11:33 12/23/24 11:33 12/23/24 11:33 12/23/24 11:33 12/23/24 07:20 12/23/24 07:20 Preop Diagnosis: LV dysfunction, CAD, non-STEMI, Operation Date: 12/18/24 07:00 Proposed Procedures p Peripheral Diagnostic(Not Applicable) - Clovis Fajardo MD Operation Date: 12/20/24 06:00 Proposed Procedures p Cardiac Catheterization(Left) - Clovis Fajardo MD Operation Date: 12/23/24 13:05 Proposed Procedures p Below Knee Amputation(Left) - Hao Plummer MD Familial anesthetic complications: None Was Beta Luisa taken within 24 hours: N/A Was Clonidine taken within 24 hours: N/A Last intake: > 8 hrs Social Tobacco and No alcohol Exam alert, oriented x 3, clear to auscultation bilaterally and regular rate & rhythm Airway Mallampati: Class II CV/HEM Atrial Fibrillation, Coronary Artery Disease, Congestive Heart Failure, Hypertension and Myocardial Infarction Metabolic Diabetes Mellitus Anesthetic Plan ASA status: 4 Anesthesia: General and Regional (specify below) Risk of > 500 ml blood loss (7ml/kg in children): No Medications/Allergies Home Medications ?Medication ?Instructions ?Recorded ?Confirmed ?Last Taken ?Type albuterol sulfate 90 mcg/actuation 2 puff inhalation Q4H PRN 06/21/24 12/17/24 Unknown History aerosol inhaler Shortness Of Breath amlodipine 10 mg tablet 10 mg PO DAILY 06/21/24 12/17/24 12/16/24 History gabapentin 400 mg capsule 400 mg PO TID 06/21/24 12/17/24 12/16/24 History insulin degludec 200 unit/mL (3 15 unit SUBCUT BEDTIME 06/21/24 12/17/24 12/15/24 History mL) subcutaneous pen (Tresiba FlexTouch U-200 insulin) metformin 1,000 mg tablet 1,000 mg PO BID 06/21/24 12/17/24 Unknown History simvastatin 20 mg tablet 20 mg PO QPM 06/21/24 12/17/24 12/15/24 19:00 History CAM Boot to the Right #1 ea 06/24/24 12/17/24 Unknown Rx Post Op Shoe to the Right if #1 ea 06/24/24 12/17/24 Unknown Rx available amoxicillin 500 mg-potassium 1 tab PO BID #20 tabs 12/15/24 12/17/24 12/16/24 Rx clavulanate 125 mg tablet (Augmentin) hydrocodone 10 mg-acetaminophen 1 tab PO QID 12/17/24 12/19/24 12/16/24 History 325 mg tablet irbesartan 300 1 tab PO DAILY 12/17/24 12/17/24 12/16/24 History mg-hydrochlorothiazide 12.5 mg tablet Allergies Allergy/AdvReac Type Severity Reaction Status Date / Time No Known Allergies Allergy Verified 12/16/24 23:09 Current Medications Generic Name Dose Route Start Last Admin Trade Name Freq PRN Reason Stop Dose Admin Acetaminophen 650 mg 12/18/24 09:20 12/22/24 10:12 Acetaminophen 325 Mg Tablet PO 650 mg On Hold: 12/23/24 12:06 Q6H PRN Administration Comment: Order held by Process MILD PAIN Transfer Alprazolam 0.25 mg 12/18/24 09:20 12/23/24 02:15 Alprazolam 0.5 Mg Tablet PO 0.25 mg On Hold: 12/23/24 12:06 TID PRN Administration Comment: Order held by Process ANXIETY Transfer Aspirin 81 mg 12/17/24 11:10 12/23/24 08:42 Aspirin 81 Mg Ec Tablet PO 81 mg On Hold: 12/23/24 12:06 DAILY SAEED Administration Comment: Order held by Process Transfer Atorvastatin Calcium 40 mg 12/17/24 21:00 12/22/24 20:56 Atorvastatin 40 Mg Tablet PO 40 mg On Hold: 12/23/24 12:06 BEDTIME SAEED Administration Comment: Order held by Process Transfer Carvedilol 3.125 mg 12/18/24 15:15 12/23/24 04:07 Carvedilol 3.125 Mg Tablet PO 3.125 mg On Hold: 12/23/24 12:06 Q12H SAEED Administration Comment: Order held by Process Transfer Clopidogrel Bisulfate 75 mg 12/19/24 13:50 12/23/24 08:42 Clopidogrel 75 Mg Tablet PO 75 mg On Hold: 12/23/24 12:06 DAILY SAEED Administration Comment: Order held by Process Transfer Enoxaparin Sodium 40 mg 12/20/24 21:00 12/22/24 20:57 Enoxaparin 40 Mg/0.4 Ml Syringe SUBCUT 40 mg On Hold: 12/23/24 12:06 Q24H SAEED Administration Comment: Order held by Process Transfer Gabapentin 400 mg 12/17/24 15:00 12/23/24 08:42 Gabapentin 400 Mg Capsule PO 400 mg On Hold: 12/23/24 12:06 TID SAEED Administration Comment: Order held by Process Transfer Hydromorphone HCl 1 mg 12/22/24 07:51 12/23/24 08:41 Hydromorphone 0.5 Mg/0.5 Ml Inj IVP 1 mg On Hold: 12/23/24 12:06 Q6H PRN Administration Comment: Order held by Process severe breakthrough pain Transfer Vancomycin HCl 1,250 mg in 250 mls @ 166.667 mls/hr 12/21/24 13:00 12/23/24 04:22 Vancocin IV Infused Q12H SAEED Infusion Insulin Human Lispro 0 unit 12/17/24 08:00 12/23/24 10:50 Insulin Lispro 100 Unit/1 Ml SUBCUT Not Given On Hold: 12/23/24 12:06 WM&BEDTIME SAEED Comment: Order held by Process Protocol Transfer Meropenem 500 mg 12/17/24 18:00 12/23/24 10:50 Meropenem 500 Mg Sdv IVP 500 mg Q8H SAEED Administration Protocol Nicotine 1 patch 12/17/24 10:00 12/23/24 08:41 Nicotine 21 Mg Patch TRANSDERMA 1 patch On Hold: 12/23/24 12:06 DAILY SAEED Administration Comment: Order held by Process Transfer Oxycodone HCl 5 mg 12/21/24 19:56 12/23/24 01:53 Oxycodone 5 Mg Ir Tab/Cap PO 5 mg On Hold: 12/23/24 12:06 Q4H PRN Administration Comment: Order held by Process MODERATE PAIN Transfer Pantoprazole Sodium 40 mg 12/17/24 03:31 12/23/24 04:07 Pantoprazole 40 Mg Sdv IVP 40 mg On Hold: 12/23/24 12:06 Q24H SAEED Administration Comment: Order held by Process Transfer Temazepam 15 mg 12/18/24 09:20 12/22/24 20:56 Temazepam 15 Mg Capsule PO 15 mg On Hold: 12/23/24 12:06 BEDTIME PRN Administration Comment: Order held by Process INSOMNIA Transfer [facility] Anesthesia Medical History (Updated 12/23/24 @ 11:04 by FRANK Boone) Hypertension Epistaxis Social History Smoking and tobacco/nicotine status: current every day tobacco/nicotine user Data Anesthesia 12/23/24 03:57 12/23/24 03:57 Short CBC 12/22/24 12/23/24 Range/Units 03:15 03:57 WBC 16.41 H 14.54 H (3.29-11.43) 10^3/uL Hgb 9.40 L 10.50 L (11.27-16.99) g/dL Hct 28.3 L 32.0 L (37-53) % MCV 92.8 93.6 (82-101) fl Plt Count 474 H 539 H (157-399) 10^3/cmm Neut % (Auto) 77.8 75.9 % Neut # (Auto) 12.77 H 11.04 H (1.8-7.7) 10^3/uL BMP 12/22/24 12/23/24 03:15 03:57 Sodium 138 136 Potassium 3.7 3.8 Chloride 106 102 Carbon Dioxide 19 L 21 L BUN 14 12 Creatinine 0.9 0.8 Glucose 140 H 143 H Calcium 7.7 L 8.2 L Cardiac Enzymes 12/22/24 12/23/24 Range/Units 03:15 03:57 NT-Pro-B Natriuret Pep 28697 H 6879 H (0-125) pg/mL Liver Function 12/22/24 12/23/24 Range/Units 03:15 03:57 Total Bilirubin 0.4 0.4 (0.15-1.2) mg/dL AST 27 32 (0-40) U/L ALT 26 42 H (0-41) U/L Alkaline Phosphatase 113 136 H (40-130) U/L Albumin 2.2 L 2.4 L (3.5-5.2) g/dL Blood Bank 12/22/24 14:49 Blood Type A Positive Rho(D) Type Rh positive Antibody Screen Negative COVID Results 12/21/24 11:17 Coronavirus 229E (PCR) Not detected SARS-CoV-2 (PCR) Not detected Microbiology 12/17/24 13:00 Blood Culture - Final Blood NO GROWTH AFTER 5 DAYS 12/17/24 13:01 Blood Culture - Final Blood NO GROWTH AFTER 5 DAYS 12/21/24 09:36 Blood Culture - Preliminary Blood NEGATIVE TO DATE 12/21/24 09:35 Blood Culture - Preliminary Blood NEGATIVE TO DATE Cardiac Studies: Echocardiogram 12/17/24 Anesthesia Procedures Nerve Block Nerve Block 1: Main Anesthesia: general anesthesia Time Out Performed: Yes Consent: requested by attending/covering physician, from patient, from other, risks and benefits reviewed and patient agrees to proceed Nerve block location: popliteal (L) Anesthesia monitors applied: pulse oximetry, EKG, BP cuff and oxygen Nerve block position: supine Anesthetic Used: ropivicaine 0.5% (20 ml) and with decadron (3 mg) Ultrasound used to: recognize landmarks Nerve Stimulator Used?: No Interscalene/Femoral BLK: 4 stimuplex 21 g needle used for position and inplane approach, visualize local anesthetic spread and no vascular puncture identified Injection: neg aspiration of heme Patient Tolerated Procedure: well Complications: none Nerve Block 2: Main Anesthesia: general anesthesia Time Out Performed: Yes Consent: requested by attending/covering physician, from patient, from other, risks and benefits reviewed and patient agrees to proceed Nerve block location: adductor canal (L) Anesthesia monitors applied: pulse oximetry, EKG, BP cuff and oxygen Anesthetic Used: ropivicaine 0.5% (10 ml) and with decadron (1 mg) Ultrasound used to: recognize landmarks and visualize and ID femerol nerve Interscalene/Femoral BLK: 4 stimuplex 21 g needle used for position and inplane approach, visualize local anesthetic spread and no vascular puncture identified Injection: neg aspiration of heme Patient Tolerated Procedure: well Complications: none
[2024-12-23] MEDS: ceFAZolin 2,000 mg SDV 2000 MG IVP (14:18)
--- NOTE | 2024-12-23 15:32 | PM.PN ---
Subjective Subjective: Patient was seen this morning, currently alert oriented x 3, following commands, denies any fevers, no chills, continues to have heel pain, pain in his left foot, he is currently n.p.o. for surgical invention today Vitals/I&O/Wt Last Vital Signs Temp 98.8 F 12/23/24 12:15 Pulse 68 12/23/24 12:15 Resp 18 12/23/24 12:15 BP 163/81 12/23/24 12:15 Pulse Ox 93 12/23/24 12:15 O2 Del Method Room Air 12/23/24 12:15 12/23/24 12/23/24 12/23/24 06:59 14:59 22:59 Intake Total 350.000 / 2156.667 Output Total 850 / 3250 850 / 850 Balance -500.000 / -1093.333 -850 / -850 Weight last 48 hrs Weight 89.04 kg Weight 89.494 kg Physical Exam Const: COMMON NORMALS: no acute distress and patient oriented x3 Resp: COMMON NORMALS: normal respiratory effort, No retractions, No use of accessory muscles and clear to auscultation bilaterally AUSCULTATION: clear to auscultation bilaterally Cardio: COMMON NORMALS: regular rate, regular rhythm, S1 normal heart sound present and S2 normal heart sound present RATE: regular rate RHYTHM: regular rhythm HEART SOUNDS: S1 normal heart sound present and S2 normal heart sound present GI: COMMON NORMALS: Normal to inspection, nondistended, normoactive bowel sounds present, non-tender and No hepatosplenomegaly present PALPATION: Yes No hepatosplenomegaly present Extremity: NARRATIVE EXTREMITY EXAM: Left lower extremity wrapped, erythema still mid cannon, although improving compared to yesterday Neuro: COMMON NORMALS: patient oriented x3 and moves all extremities Psych: COMMON NORMALS: mental status grossly normal Data 12/23/24 03:57 12/23/24 03:57 Micro: Microbiology 12/17/24 13:00 Blood Culture - Final Blood NO GROWTH AFTER 5 DAYS 12/17/24 13:01 Blood Culture - Final Blood NO GROWTH AFTER 5 DAYS A&P Assessment and plan 1. Hypertension: 2. Atrial fibrillation: 3. Unstable angina: 4. Diabetic foot ulcer: 5. Diabetic ulcer of foot associated with diabetes mellitus due to underlying condition, with fat layer exposed: 6. Cellulitis: 7. Peripheral neuropathy: 8. Acute lower limb ischemia: 9. Osteomyelitis: 10. Diabetic foot infection: 11. Gas gangrene of foot: 12. Left renal artery stenosis: 13. Superior mesenteric artery stenosis: 14. Peripheral arterial disease: Plan: Unstable angina, NSTEMI -Currently chest pain-free - Serial EKGs, serial troponins, telemetry monitoring - 6-hour troponin 42.3, T wave changes in lateral leads Cardiac echo CONCLUSIONS 1. Segmental wall motion abnormality of the left ventricle with hypokinesis of the mid and basal inferior and inferolateral wall segments. Globally, normal LV systolic function with EF of 53%. 2. No significant valvular abnormalities. Status post coronary angiography Left main: No significant disease LAD has luminal irregularity with mid high-grade stenosis Ramus intermedius is subtotally occluded Left circumflex has luminal irregularities, obtuse marginal luminal irregularity, groove circumflex has high-grade stenosis it is small caliber vessels RCA is dominant large caliber vessel with high-grade calcified lesion in the proximal segment PCI to proximal RCA using lithotripsy and drug-eluting stent 2 overlapping postdilated with noncompliant balloon. PCI to mid LAD with drug-eluting stent postdilated noncompliant balloon Balloon angioplasty to groove circumflex PCI to proximal to mid ramus intermedius with drug-eluting stent postdilated with noncompliant balloon Overall good angiographic result noted. BRENDAN-3 flow was confirmed in all the vessels without any complication. Plan - Aspirin, statin, Plavix - transition to DVT prophylaxis - Cardiology consulted Acute versus chronic lower limb ischemia Arterial ultrasound on 12/07/2024 - Good DP PT pulses bilaterally US/CV arterial duplex [facility] [id number] IMPRESSION: Stenosis in the 75-99% range left common femoral artery. JOSELINE indicates moderate to severe peripheral arterial disease left lower extremity. Monophasic waveforms and spectral broadening l throughout the left lower extremity. CT aortogram bilateral extremities 3. Peripheral vascular disease as described above with findings including occlusion of the distal left common femoral artery Severe stenosis of the distal left superficial femoral artery and also of the distal left popliteal artery, and occlusion of the distal right superficial femoral artery. - Status post peripheral angiogram and intervention by , 12/18/2024 High-grade complete occlusion of left distal common femoral with highly calcified lesion High-grade distal lesion of the left SFA around 90% High-grade lesion of the mid to distal popliteal around 80 to 90% Occluded proximal to distal left anterior tibial vessels reconstitute at the distal end through the peroneal Intravascular lithotripsy and balloon angioplasty of popliteal distal SFA and common femoral left arteries. We got good results however left common femoral artery there appeared to be still 50 to 60% residual stenosis though it has much improved after lithotripsy and balloon angioplasty as it was completely occluded, it would be requiring supera stent which we do not have on the shelf. We will order that stent and bring him back for left common femoral artery treatment as it is around the joint and we would not like to put balloon expandable stent at this location. At the end of the case we have good flow all the way to the foot. Plan - Active rewarming - Continue to Doppler DP PT pulses - Aspirin, statin, Plavix -Dilaudid for pain control - Cardiology consulted occlusion of the distal right superficial femoral artery - Right DP PT pulses palpable - Continue to monitor closely - Is on aspirin, statin, Plavix - Will need to follow-up with cardiology as outpatient for revascularization Left renal artery stenosis - Will have to follow-up with vascular surgery as outpatient Moderate superior mesenteric artery stenosis - Monitor for symptoms of mesenteric ischemia Right lower extremity lower extremities diabetic ulcers - With concerns for cellulitis CT right foot CT/CT foot RT wo con* [id number] IMPRESSION: 1. No acute fracture 2. Small soft tissue ulcer on the plantar aspect of the foot. Please correlate clinically. 3. No fluid collection or abscess is identified 4. No soft tissue gas is identified Plan - Vancomycin - Meropenem - Wound care Left lower extremity diabetic foot infection, with gas gangrene seen left plantar aspect soft tissue, extending along lateral aspect of plantar foot FINDINGS: Bones/joints: No fracture or specific destructive lesion is seen in the foot to suggest active osteomyelitis. Soft tissues: There is diffuse subcutaneous edema throughout the foot especially along the posterior and plantar aspect of the heel. There are bubbles of abnormal soft tissue gas in the plantar soft tissues extending along the lateral aspect of the posterior foot consistent with gas gangrene. There is also a prominent soft tissue ulcer along posteromedial aspect of the heel. There is some radiopaque material within this ulcer which may represent dressing or ointment in the wound appears to be packed with gauze. Other findings: There is no fluid collection to suggest presence of abscess. Current smoker, smoking cessation counseling -With peripheral arterial disease left lower extremity with revascularization as above -Now with increasing leukocytosis 17.36, febrile, evidence of worsening erythema/swelling, warmth, crepitus left lower extremity now with evidence of sepsis, ESR 130, CRP 155. Pro-Thierry 0.152 -Left foot culture showing Staph aureus, Enterococcus faecalis - Plan - Orthopedic service consulted - Orthopedic service recommends left below-knee amputation, patient understands after discussing risk and benefits, plan on proceeding tomorrow morning - Follow-up blood cultures - Vancomycin - Meropenem Type 2 diabetes mellitus, low-dose sliding scale Atrial fibrillation seen on EKG, rate controlled, reviewed by cardiology, no significant evidence of atrial fibrillation - Cardiology consulted Full code Lovenox for DVT prophylaxis Plan for today surgical invention, left below-knee amputation PDMP PDMP Reviewed: Not Reviewed Attestations Medical Necessity Statement*: Patient requires hospitalization for left below-knee amputation, cellulitis, deep tissue infection Diagnoses Hypertension I10 Atrial fibrillation I48.91 Unstable angina I20.0 Diabetic foot ulcer E11.621; L97.509 Diabetic ulcer of foot associated with diabetes mellitus due to underlying condition, with fat layer exposed E08.621; L97.502 Cellulitis L03.90 Peripheral neuropathy G62.9 Acute lower limb ischemia I99.8 Osteomyelitis M86.9 Diabetic foot infection E11.628; L08.9 Gas gangrene of foot A48.0 Left renal artery stenosis I70.1 Superior mesenteric artery stenosis K55.1 Peripheral arterial disease I73.9
--- NOTE | 2024-12-23 16:21 | P.OP_ITS ---
Operative Report Date of procedure: December 23, 2024 Surgeon: Hao Plummer MD Procedure: Preoperative diagnosis: Nonhealing left foot diabetic ulcer with concomitant peripheral vascular disease Postoperative diagnosis: Same Procedure: Below-knee amputation of the left leg Surgeon: Hao Plummer MD Director Technical: FRANK Mckenzie's assistance was necessary for assistance during the procedure, suturing of the wound, placement of dressings and casting, Anesthesia: General Tourniquet time: 65 minutes at 300 mmHg Specimens: Left lower extremity EBL: 50 cc Indications: Mr. Barakat is a 74-year-old white male was admitted to the hospital greater than a week ago with an infected left foot with a nonhealing ulcer over the calcaneus. He also had poor blood flow with significant diminished flow via Dopplers. Orthopedic consultation was obtained for evaluation of this foot and ulcer. Original recommendations would be below-knee amputation. However, at this time cardiology was involved and attempted to rep erfuse the left lower extremity after catheterization of the leg. They did receive better flow down to the knee but past that point was not successful. Patient continues to have pain discomfort and difficulties with lower extremity. Pulses are not palpable. Previous radiological studies demonstrated gas in the tissues indicating infection. Therefore at this time patient was talked to on multiple occasion by myself for possible below-knee amputation. Patient became frustrated with continued pain and discomfort of his left lower extremity. I have explained to him that the peripheral vascular disease as well as the infection down there is contributing to this. Therefore after long discussions he agreed to proceed with a below-knee amputation. All risk benefits treatment alternatives were discussed with him and he is agreeable to proceed. Procedure: After obtaining the consent patient was taken the operating room placed in upper table supine position general anesthetic image once good anesthesia was achieved pneumatic cuffs placed from proximal left leg and left legs prepped draped usual fashion. After surgical timeout and gravity exsanguination by cuff was inflated to 300 mmHg. Distal cut marked anteriorly was done with a marking pen approximately 8 cm below the tibial tubercle. [place] incision was made from this point with posterior flap longer than the anterior flap. Sharp dissection taken down through the skin with a #10 blade circumferentially around the leg. Then electrocautery was used to divide muscle and fibrous tissue. Neurovascular bundles were identified and isolated with blunt dissection with a hemostat. Silk ties were then used to tie off blood vessels and then electrocautery was used to cut these. This was done all the way down the bony surfaces. Subsequently using a sagittal saw straight transverse cut was made through the tibia. Fibula was isolated and was divided several centimeters proximal to the tibial cut. Tibial edges were then beveled with a sagittal saw to smooth them out. Drill was then used to place drill holes for future sutures. The remainder of the dissection was done removing the lower extremity and handing off for pathological review. Attention was turned towards coverage of the distal tibia. Deep fascial layers were sutured through the drill holes over the end of the tibia with #2 Ethibond [id number] sutures. Subsequently superficial fascial layer was then brought up over and sutured to the subcutaneous fascial layer of the anterior muscle compartments with #2 Ethibond [id number] sutures also. At this point #2 Prolene was used in a horizontal mattress fashion to reapproximate skin edges starting centrally and working out to the edges. Supplementary #2 Prolene [id number] and interrupted sutures were used to make final closure. Pneumatic cuff is deflated after 65 minutes total tourniquet time at this time. Wounds were then cleaned and dry dressed with Xeroform gauze sterile gauze dressing Kerlix wrap and a short leg cast was applied over the stump up to mid thigh and molded appropriately. Patient was then awakened transferred to cover room in stable condition
--- NOTE | 2024-12-23 17:15 | PC.NURSE ---
Patient received from PACU. He is AAOx4. Patient denies hunger at this time. Patient is s/p left BKA. Dressing in place remains c,d,i without s/s of bleeding presently. Patient reports control of pain presently. family at bedside.
--- NOTE | 2024-12-23 19:00 | ANE.PACU2 ---
Inpatient post-anesthesia follow up: Airway intact: Yes Vital signs: Temperature 98.7 F Pulse Rate 72 Respiratory Rate 18 Blood Pressure 184/87 Pulse Oximetry 95 Oxygen Delivery Me thod Room Air Oxygen Flow Rate 3 Fraction of Inspir ed Oxygen Hydration adequate: Yes Nausea and vomiting: No Pain level: 1 Mental status: Baseline
[2024-12-24] VITALS (12 sets, daily range): BP systolic 135–169; BP diastolic 70–78; PULSE 51–67; RESP 16–35; TEMP 35.9–36.6; O2SAT 90–99; BMI 28.2
[2024-12-24] MEDS: HYDROmorphone 0.5 MG/0.5 ML INJ 1 MG IVP ×4 (01:59→16:12)
[2024-12-24 03:46] LABS: Hematocrit 33.9 % (37-53); Hemoglobin 11.10 g/dL (11.27-16.99); Mean Corpuscular HGB Conc 32.7 g/dL (30-55); Mean Corpuscular Hemoglobin 31.1 pg (27-33); Mean Corpuscular Volume 95.0 fl (82-101); Nucleated Red Blood Cells % 0 %; Platelet Count 453 10^3/cmm (157-399); Red Blood Count 3.57 10^6/uL (3.85-5.65); White Blood Count 12.49 10^3/uL (3.29-11.43)
[2024-12-24 04:00] LABS: Alanine Aminotransferase 47 U/L (0-41); Albumin Level 2.4 g/dL (3.5-5.2); Alkaline Phosphatase 157 U/L (40-130); Anion Gap 18.2 (5-19); Aspartate Amino Transferase 45 U/L (0-40); Blood Urea Nitrogen 18 mg/dL (8-23); Calcium 8.1 mg/dL (8.5-10.5); Carbon Dioxide 20 mmol/L (22-29); Chloride 102 mmol/L (98-107); Creatinine Clr Calc Pharmacy 93.7550; Globulin 4.5 g/dL (1.3-4.6); Glucose 280 mg/dL (65-115); NT Pro B Type Natriuretic Pept 5041 pg/mL (0-125); Osmolality Calculated 294 mOsm/kg (285-295); Potassium 4.2 mmol/L (3.5-5.1); Sodium 136 mmol/L (136-145); Total Protein 6.9 g/dL (6.6-8.7)
[2024-12-24] MEDS: pantoprazole 40 mg SDV IVP (04:43)
--- NOTE | 2024-12-24 06:03 | PC.NURSE ---
Patient HR was dropping down to 43 while patient was sleeping. Carvedilol 3.[address] Tolliver was notified and medication was held per dr sanderson.
[2024-12-24] MEDS: oxyCODONE 5 mg IR Tab/Cap PO ×4 (06:11→19:52)
[2024-12-24] MEDS: FUROsemide 10 mg/mL SDV 4mL 40 MG IVP (09:00)
--- NOTE | 2024-12-24 10:48 | P.PN_ITS ---
Subjective 2 Subjective: Patient was seen this morning, currently alert x 3, following commands, he is status post left below-knee amputation, does have pain but is under control,, no chest pain, no shortness of breath but is on 3 L Vitals/I&O/Wt Last Vital Signs Temp 97.2 F L 12/24/24 07:53 Pulse 51 L 12/24/24 08:07 Resp 18 12/24/24 09:49 BP 160/76 12/24/24 07:53 Pulse Ox 99 12/24/24 08:07 O2 Del Method Nasal Cannula 12/24/24 08:07 O2 Flow Rate 3 12/24/24 08:07 12/23/24 12/24/24 12/24/24 22:59 06:59 14:59 Intake Total 356 / 356 250 / 606 1220.5 / 1220.5 Output Total 620 / 1470 250 / 1720 Balance -264 / -1114 0 / -1114 1220.5 / 1220.5 Weight last 48 hrs Weight 89.131 kg Weight 89.04 kg Physical Exam 2 Const: COMMON NORMALS: no acute distress and patient oriented x3 Resp: COMMON NORMALS: normal respiratory effort, No retractions and No use of accessory muscles AUSCULTATION: crackles Cardio: COMMON NORMALS: regular rate, regular rhythm, S1 normal heart sound present and S2 normal heart sound present RATE: regular rate RHYTHM: r egular rhythm HEART SOUNDS: S1 normal heart sound present and S2 normal heart sound present GI: COMMON NORMALS: Normal to inspection, nondistended, normoactive bowel sounds present and non-tender Extremity: COMMON NORMALS: no pedal edema NARRATIVE EXTREMITY EXAM: Left lower extremity wrapped Neuro: COMMON NORMALS: patient oriented x3 Psych: COMMON NORMALS: mental status grossly normal Data 12/24/24 02:49 12/24/24 02:49 A&P Assessment and plan 1. Hypertension: 2. Atrial fibrillation: 3. Unstable angina: 4. Diabetic foot ulcer: 5. Diabetic ulcer of foot associated with diabetes mellitus due to underlying condition, with fat layer exposed: 6. Cellulitis: 7. Peripheral neuropathy: 8. Acute lower limb ischemia: 9. Osteomyelitis: 10. Diabetic foot infection: 11. Gas gangrene of foot: 12. Left renal artery stenosis: 13. Superior mesenteric artery stenosis: 14. Peripheral arterial disease: 15. Pulmonary edema: 16. Acute hypoxic respiratory failure: Plan: Acute hypoxic respiratory failure on 3 L - Concerns for fluid overload, pulm edema - Elevated BNP - IV Lasix yesterday - IV Lasix today Unstable angina, NSTEMI -Currently chest pain-free - Serial EKGs, serial troponins, telemetry monitoring - 6-hour troponin 42.3, T wave changes in lateral leads Cardiac echo CONCLUSIONS 1. Segmental wall motion abnormality of the left ventricle with hypokinesis of the mid and basal inferior and inferolateral wall segments. Globally, normal LV systolic function with EF of 53%. 2. No significant valvular abnormalities. Status post coronary angiography Left main: No significant disease LAD has luminal irregularity with mid high-grade stenosis Ramus intermedius is subtotally occluded Left circumflex has luminal irregularities, obtuse marginal luminal irregularity, groove circumflex has high-grade stenosis it is small caliber vessels RCA is dominant large caliber vessel with high-grade calcified lesion in the proximal segment PCI to proximal RCA using lithotripsy and drug-eluting stent 2 overlapping postdilated with noncompliant balloon. PCI to mid LAD with drug-eluting stent postdilated noncompliant balloon Balloon angioplasty to groove circumflex PCI to proximal to mid ramus intermedius with drug-eluting stent postdilated with noncompliant balloon Overall good angiographic result noted. BRENDAN-3 flow was confirmed in all the vessels without any complication. Plan - Aspirin, statin, Plavix - transition to DVT prophylaxis - Cardiology consulted Acute versus chronic lower limb ischemia Arterial ultrasound on 12/07/2024 - Good DP PT pulses bil[place] US/[place] [id number] IMPRESSION: Stenosis in the 75-99% range left common femoral artery. JOSELINE indicates moderate to severe peripheral arterial disease left lower extremity. Monophasic waveforms and spectral broadening l throughout the left lower extremity. CT aortogram bilateral extremities 3. Peripheral vascular disease as described above with findings including occlusion of the distal left common femoral artery Severe stenosis of the distal left superficial femoral artery and also of the distal left popliteal artery, and occlusion of the distal right superficial femoral artery. - Status post peripheral angiogram and intervention by , 12/18/2024 High-grade complete occlusion of left distal common femoral with highly calcified lesion High-grade distal lesion of the left SFA around 90% High-grade lesion of the mid to distal popliteal around 80 to 90% Occluded proximal to distal left anterior tibial vessels reconstitute at the distal end through the peroneal Intravascular lithotripsy and balloon angioplasty of popliteal distal SFA and common femoral left arteries. We got good results however left common femoral artery there appeared to be still 50 to 60% residual stenosis though it has much improved after lithotripsy and balloon angioplasty as it was completely occluded, it would be requiring supera stent which we do not have on the shelf. We will order that stent and bring him back for left common femoral artery treatment as it is around the joint and we would not like to put balloon expandable stent at this location. At the end of the case we have good flow all the way to the foot. Plan - Active rewarming - Continue to Doppler DP PT pulses - Aspirin, statin, Plavix -Dilaudid for pain control - Cardiology consulted occlusion of the distal right superficial femoral artery - Right DP PT pulses palpable - Continue to monitor closely - Is on aspirin, statin, Plavix - Will need to follow-up with cardiology as outpatient for revascularization Left renal artery stenosis - Will have to follow-up with vascular surgery as outpatient Moderate superior mesenteric artery stenosis - Monitor for symptoms of mesenteric ischemia Right lower extremity lower extremities diabetic ulcers - With concerns for cellulitis CT right foot CT/CT foot RT wo con* [id number] IMPRESSION: 1. No acute fracture 2. Small soft tissue ulcer on the plantar aspect of the foot. Please correlate clinically. 3. No fluid collection or abscess is identified 4. No soft tissue gas is identified Plan - Vancomycin - Meropenem - Wound care Left lower extremity diabetic foot infection, with gas gangrene seen left plantar aspect soft tissue, extending along lateral aspect of plantar foot FINDINGS: Bones/joints: No fracture or specific destructive lesion is seen in the foot to suggest active osteomyelitis. Soft tissues: There is diffuse subcutaneous edema throughout the foot especially along the posterior and plantar aspect of the heel. There are bubbles of abnormal soft tissue gas in the plantar soft tissues extending along the lateral aspect of the posterior foot consistent with gas gangrene. There is also a prominent soft tissue ulcer along posteromedial aspect of the heel. There is some radiopaque material within this ulcer which may represent dressing or ointment in the wound appears to be packed with gauze. Other findings: There is no fluid collection to suggest presence of abscess. Current smoker, smoking cessation counseling -With peripheral arterial disease left lower extremity with revascularization as above -Left foot culture showing Staph aureus, Enterococcus faecalis -Status post left lower extremity below-knee amputation postop day 1 - Plan - Orthopedic service consulted - Follow-up blood cultures - Vancomycin - Meropenem - IV antibiotics will be stopped after 24 hours - IV pain medication for breakthrough pain, oxycodone for pain Type 2 diabetes mellitus, low-dose sliding scale Atrial fibrillation seen on EKG, rate controlled, reviewed by cardiology, no significant evidence of atrial fibrillation - Cardiology consulted Full code Lovenox for DVT prophylaxis Plan PT OT, IV antibiotics, clinically monitor, PDMP PDMP Reviewed: Not Reviewed Attestations 2 Medical Necessity Statement*: Patient with hospitalization for left lower extremity diabetic foot infection status post below-knee amputation, NSTEMI, peripheral vascular disease, fluid overload, pulmonary edema Diagnoses Hypertension I10 Atrial fibrillation I48.91 Unstable angina I20.0 Diabetic foot ulcer E11.621; L97.509 Diabetic ulcer of foot associated with diabetes mellitus due to underlying condition, with fat layer exposed E08.621; L97.502 Cellulitis L03.90 Peripheral neuropathy G62.9 Acute lower limb ischemia I99.8 Osteomyelitis M86.9 Diabetic foot infection E11.628; L08.9 Gas gangrene of foot A48.0 Left renal artery stenosis I70.1 Superior mesenteric artery stenosis K55.1 Peripheral arterial disease I73.9 Pulmonary edema J81.1 Acute hypoxic respiratory failure J96.01
[2024-12-25] VITALS (17 sets, daily range): BP systolic 134–171; BP diastolic 60–90; PULSE 49–69; RESP 12–22; TEMP 36.3–37; O2SAT 92–100
[2024-12-25] MEDS: HYDROmorphone 0.5 MG/0.5 ML INJ 1 MG IVP ×3 (01:50→19:37)
[2024-12-25] MEDS: oxyCODONE 5 mg IR Tab/Cap PO ×6 (02:30→23:00)
[2024-12-25] MEDS: pantoprazole 40 mg SDV IVP (02:30)
[2024-12-25 04:55] LABS: Hematocrit 30.0 % (37-53); Hemoglobin 9.80 g/dL (11.27-16.99); Mean Corpuscular HGB Conc 32.7 g/dL (30-55); Mean Corpuscular Hemoglobin 30.5 pg (27-33); Mean Corpuscular Volume 93.5 fl (82-101); Nucleated Red Blood Cells % 0 %; Platelet Count 545 10^3/cmm (157-399); Red Blood Count 3.21 10^6/uL (3.85-5.65); White Blood Count 10.14 10^3/uL (3.29-11.43)
[2024-12-25 05:24] LABS: Anion Gap 13.9 (5-19); Blood Urea Nitrogen 23 mg/dL (8-23); Calcium 7.8 mg/dL (8.5-10.5); Carbon Dioxide 23 mmol/L (22-29); Chloride 105 mmol/L (98-107); Creatinine Clr Calc Pharmacy 93.4122; Glucose 207 mg/dL (65-115); NT Pro B Type Natriuretic Pept 2495 pg/mL (0-125); Osmolality Calculated 296 mOsm/kg (285-295); Potassium 3.9 mmol/L (3.5-5.1); Sodium 138 mmol/L (136-145)
--- NOTE | 2024-12-25 11:19 | P.PN_ITS ---
Subjective 2 Subjective: Patient is now postop day #2 after below-knee amputation left lower extremity. He has complaints of phantom pain and pain in his leg otherwise states he is feeling better. He has had no new medical issues. He is tolerating this procedure well. Vitals/I&O/Wt Last Vital Signs Temp 98.6 F 12/25/24 09:00 Pulse 58 L 12/25/24 09:00 Resp 15 12/25/24 10:04 BP 153/71 12/25/24 09:00 Pulse Ox 93 12/25/24 10:48 O2 Del Method Room Air 12/25/24 10:48 O2 Flow Rate 3 12/24/24 08:07 12/24/24 12/25/24 12/25/24 22:59 06:59 14:59 Intake Total 970 / 2550.5 360 / 360 Output Total 750 / 750 800 / 1550 Balance 220 / 1800.5 -800 / 1000.5 360 / 360 Weight last 48 hrs Weight 194 lb 11.2 oz Weight 196 lb 8 oz Physical Exam 2 Narrative: On examination of left lower extremity he is in a cast to about mid thigh. He is able to raise his leg without any difficulties. There is no drainage coming through the cast at all. Data 12/25/24 03:17 12/25/24 03:17 A&P Assessment and plan 1. Below-knee amputation of left lower extremity, subsequent encounter: Place this 2 days status post left below-knee amputation. Overall is doing well. Is having phantom pain as expected. However, pain medications are controlling this. Cast is fitting well no drainage identified throughout Plan: Plan at this time is there are plans for him to be sent to rehab, retirement facility. We will follow-up with him in about 2 to 3 weeks for repeat evaluation and possible removal of the cast. Wound evaluation at that time. Otherwise until then pain control as necessary as well as physical therapy for walker ambulation. PDMP PDMP Reviewed: Not Reviewed Attestations 2 Medical Necessity Statement*: Patient still in need of pain control as well as evaluation and treatment of his medical conditions. Coding Level of Care Code Acute Code for Chg Fwd Diagnoses Below-knee amputation of left lower extremity, subsequent encounter S88.112D Encounter type: subsequent encounter Laterality: left
--- NOTE | 2024-12-25 13:41 | P.PN_ITS ---
Subjective 2 Subjective: Patient was seen this morning, he is complaining of phantom limb pain in the left lower extremity, he is on gabapentin, I discussed potentially increasing the dose of gabapentin, denies any fevers, no chills, no cough Vitals/I&O/Wt Last Vital Signs Temp 98.4 F 12/25/24 12:00 Pulse 61 12/25/24 12:00 Resp 14 12/25/24 12:00 BP 156/77 12/25/24 12:00 Pulse Ox 97 12/25/24 12:00 O2 Del Method Room Air 12/25/24 12:00 O2 Flow Rate 3 12/24/24 08:07 12/24/24 12/25/24 12/25/24 22:59 06:59 14:59 Intake Total 970 / 2550.5 360 / 360 Output Total 750 / 750 800 / 1550 Balance 220 / 1800.5 -800 / 1000.5 360 / 360 Weight last 48 hrs Weight 88.314 kg Weight 89.131 kg Physical Exam 2 Const: COMMON NORMALS: no acute distress and patient oriented x3 Resp: COMMON NORMALS: normal respiratory effort, No retractions, No use of accessory muscles and clear to auscultation bilaterally AUSCULTATION: clear to auscultation bilaterally Cardio: COMMON NORMALS: regular rate, regular rhythm, S1 normal heart sound present and S2 normal heart sound present RATE: regular rate RHYTHM: r egular rhythm HEART SOUNDS: S1 normal heart sound present and S2 normal heart sound present GI: COMMON NORMALS: Normal to inspection, nondistended, normoactive bowel sounds present and non-tender Extremity: COMMON NORMALS: no calf tenderness and no pedal edema Neuro: COMMON NORMALS: patient oriented x3 OTHER: Left lower extremity wrapped Psych: COMMON NORMALS: mental status grossly normal Data 12/25/24 03:17 12/25/24 03:17 A&P Assessment and plan 1. Hypertension: 2. Atrial fibrillation: 3. Unstable angina: 4. Diabetic foot ulcer: 5. Diabetic ulcer of foot associated with diabetes mellitus due to underlying condition, with fat layer exposed: 6. Cellulitis: 7. Peripheral neuropathy: 8. Acute lower limb ischemia: 9. Osteomyelitis: 10. Diabetic foot infection: 11. Gas gangrene of foot: 12. Left renal artery stenosis: 13. Superior mesenteric artery stenosis: 14. Peripheral arterial disease: 15. Pulmonary edema: 16. Acute hypoxic respiratory failure: Plan: Acute hypoxic respiratory failure on 3 L, resolved on room air - Concerns for fluid overload, pulm edema - Elevated BNP - Hold off on Lasix today Unstable angina, NSTEMI -Currently chest pain-free - Serial EKGs, serial troponins, telemetry monitoring - 6-hour troponin 42.3, T wave changes in lateral leads Cardiac echo CONCLUSIONS 1. Segmental wall motion abnormality of the left ventricle with hypokinesis of the mid and basal inferior and inferolateral wall segments. Globally, normal LV systolic function with EF of 53%. 2. No significant valvular abnormalities. Status post coronary angiography Left main: No significant disease LAD has luminal irregularity with mid high-grade stenosis Ramus intermedius is subtotally occluded Left circumflex has luminal irregularities, obtuse marginal luminal irregularity, groove circumflex has high-grade stenosis it is small caliber vessels RCA is dominant large caliber vessel with high-grade calcified lesion in the proximal segment PCI to proximal RCA using lithotripsy and drug-eluting stent 2 overlapping postdilated with noncompliant balloon. PCI to mid LAD with drug-eluting stent postdilated noncompliant balloon Balloon angioplasty to groove circumflex PCI to proximal to mid ramus intermedius with drug-eluting stent postdilated with noncompliant balloon Overall good angiographic result noted. BRENDAN-3 flow was confirmed in all the vessels without any complication. Plan - Aspirin, statin, Plavix - transition to DVT prophylaxis - Cardiology consulted Acute versus chronic lower limb ischemia Arterial ultrasound on 12/07/2024 - Good DP PT pulses bilaterally US/[place] [id number] IMPRESSION: Stenosis in the 75-99% range left common femoral artery. JOSELINE indicates moderate to severe peripheral arterial disease left lower extremity. Monophasic waveforms and spectral broadening l throughout the left lower extremity. CT aortogram bilateral extremities 3. Peripheral vascular disease as described above with findings including occlusion of the distal left common femoral artery Severe stenosis of the distal left superficial femoral artery and also of the distal left popliteal artery, and occlusion of the distal right superficial femoral artery. - Status post peripheral angiogram and intervention by , 12/18/2024 High-grade complete occlusion of left distal common femoral with highly calcified lesion High-grade distal lesion of the left SFA around 90% High-grade lesion of the mid to distal popliteal around 80 to 90% Occluded proximal to distal left anterior tibial vessels reconstitute at the distal end through the peroneal Intravascular lithotripsy and balloon angioplasty of popliteal distal SFA and common femoral left arteries. We got good results however left common femoral artery there appeared to be still 50 to 60% residual stenosis though it has much improved after lithotripsy and balloon angioplasty as it was completely occluded, it would be requiring supera stent which we do not have on the shelf. We will order that stent and bring him back for left common femoral artery treatment as it is around the joint and we would not like to put balloon expandable stent at this location. At the end of the case we have good flow all the way to the foot. Plan - Active rewarming - Continue to Doppler DP PT pulses - Aspirin, statin, Plavix -Dilaudid for pain control - Cardiology consulted occlusion of the distal right superficial femoral artery - Right DP PT pulses palpable - Continue to monitor closely - Is on aspirin, statin, Plavix - Will need to follow-up with cardiology as outpatient for revascularization Left renal artery stenosis - Will have to follow-up with vascular surgery as outpatient Moderate superior mesenteric artery stenosis - Monitor for symptoms of mesenteric ischemia Right lower extremity lower extremities diabetic ulcers - With concerns for cellulitis CT right foot CT/CT foot RT wo con* [id number] IMPRESSION: 1. No acute fracture 2. Small soft tissue ulcer on the plantar aspect of the foot. Please correlate clinically. 3. No fluid collection or abscess is identified 4. No soft tissue gas is identified Plan - Oral antibiotics, wound care Left lower extremity diabetic foot infection, with gas gangrene seen left plantar aspect soft tissue, extending along lateral aspect of plantar foot FINDINGS: Bones/joints: No fracture or specific destructive lesion is seen in the foot to suggest active osteomyelitis. Soft tissues: There is diffuse subcutaneous edema throughout the foot especially along the posterior and plantar aspect of the heel. There are bubbles of abnormal soft tissue gas in the plantar soft tissues extending along the lateral aspect of the posterior foot consistent with gas gangrene. There is also a prominent soft tissue ulcer along posteromedial aspect of the heel. There is some radiopaque material within this ulcer which may represent dressing or ointment in the wound appears to be packed with gauze. Other findings: There is no fluid collection to suggest presence of abscess. Current smoker, smoking cessation counseling -With peripheral arterial disease left lower extremity with revascularization as above -Left foot culture showing Staph aureus, Enterococcus faecalis -Status post left lower extremity below-knee amputation postop day 1 - Plan - Orthopedic service consulted - Follow-up blood cultures - Transition to oral antibiotics Type 2 diabetes mellitus, low-dose sliding scale Atrial fibrillation seen on EKG, rate controlled, reviewed by cardiology, no significant evidence of atrial fibrillation - Cardiology consulted Full code Lovenox for DVT prophylaxis Plan PT OT, working on discharge PDMP PDMP Reviewed: Not Reviewed Attestations 2 Medical Necessity Statement*: Patient requires hospitalization for left BKA, Diagnoses Hypertension I10 Atrial fibrillation I48.91 Unstable angina I20.0 Diabetic foot ulcer E11.621; L97.509 Diabetic ulcer of foot associated with diabetes mellitus due to underlying condition, with fat layer exposed E08.621; L97.502 Cellulitis L03.90 Peripheral neuropathy G62.9 Acute lower limb ischemia I99.8 Osteomyelitis M86.9 Diabetic foot infection E11.628; L08.9 Gas gangrene of foot A48.0 Left renal artery stenosis I70.1 Superior mesenteric artery stenosis K55.1 Peripheral arterial disease I73.9 Pulmonary edema J81.1 Acute hypoxic respiratory failure J96.01
[2024-12-26] VITALS (8 sets, daily range): BP systolic 153–184; BP diastolic 76–104; PULSE 59–76; RESP 13–23; TEMP 37.1; O2SAT 92–98; BMI 28.3
[2024-12-26] MEDS: HYDROmorphone 0.5 MG/0.5 ML INJ 1 MG IVP ×2 (01:53→09:20)
[2024-12-26] MEDS: pantoprazole 40 mg SDV IVP (04:07)
[2024-12-26 04:57] LABS: Hematocrit 31.1 % (37-53); Hemoglobin 10.40 g/dL (11.27-16.99); Mean Corpuscular HGB Conc 33.4 g/dL (30-55); Mean Corpuscular Hemoglobin 31.5 pg (27-33); Mean Corpuscular Volume 94.2 fl (82-101); Nucleated Red Blood Cells % 0 %; Platelet Count 596 10^3/cmm (157-399); Red Blood Count 3.30 10^6/uL (3.85-5.65); White Blood Count 9.16 10^3/uL (3.29-11.43)
[2024-12-26 05:27] LABS: Anion Gap 14.2 (5-19); Blood Urea Nitrogen 18 mg/dL (8-23); Calcium 8.0 mg/dL (8.5-10.5); Carbon Dioxide 26 mmol/L (22-29); Chloride 103 mmol/L (98-107); Creatinine Clr Calc Pharmacy 93.4122; Glucose 155 mg/dL (65-115); NT Pro B Type Natriuretic Pept 4710 pg/mL (0-125); Osmolality Calculated 293 mOsm/kg (285-295); Potassium 4.2 mmol/L (3.5-5.1); Sodium 139 mmol/L (136-145)
[2024-12-26] MEDS: oxyCODONE 5 mg IR Tab/Cap PO (07:59)
--- NOTE | 2024-12-26 08:51 | PM.PN ---
Subjective Subjective: No chest pain, continues to have significant pain in the amputation site. Blood pressure elevated due to that. Vitals/I&O/Wt Last Vital Signs Temp 98.7 F 12/26/24 07:41 Pulse 72 12/26/24 08:18 Resp 18 12/26/24 08:18 BP 184/87 12/26/24 07:41 Pulse Ox 95 12/26/24 08:18 O2 Del Method Room Air 12/26/24 08:18 O2 Flow Rate 3 12/24/24 08:07 12/25/24 12/26/24 12/26/24 22:59 06:59 14:59 Intake Total 240 / 840 Output Total 1300 / 3000 1700 / 3000 Balance -1060 / -2160 -1700 / -2160 Weight last 48 hrs Weight 197 lb 7 oz Weight 194 lb 11.2 oz Physical Exam Const: COMMON NORMALS: no acute distress and patient oriented x3 GENERAL APPEARANCE: cooperative and comfortable ORIENTATION/CONSCIOUSNESS: Yes awake, Yes oriented to person, Yes oriented to place and Yes oriented to time Chest: COMMONS NORMALS: normal inspection of the chest and normal palpation of entire chest wall CHEST: Yes Symmetrical chest wall rise Resp: COMMON NORMALS: normal respiratory effort, No retractions, No use of accessory muscles and clear to auscultation bilaterally EFFORT & INSPECTION: Yes symmetric chest movement AUSCULTATION: clear to auscultation bilaterally Cardio: COMMON NORMALS: regular rate, regular rhythm, S1 normal heart sound present, S2 normal heart sound present, No gallops present (Cardio), No clicks present (Cardio), No murmurs present (Cardio) and No rub (Cardio) RATE: regular rate RHYTHM: regular rhythm HEART SOUNDS: S1 normal heart sound present and S2 normal heart sound present PERIPHERAL PULSES: radial pulses present Extremity: OTHER: left Neuro: COMMON NORMALS: patient oriented x3 and moves all extremities SENSORIUM/ORIENTATION: Yes oriented to person, Yes oriented to place and Yes oriented to time Data 12/26/24 04:36 12/26/24 04:36 A&P Assessment and plan 1. Peripheral arterial disease: 2. Tobacco dependence: 3. Coronary artery disease: 4. Below-knee amputation of left lower extremity, subsequent encounter: 5. Hypertension: Plan: He seems to be doing well from a cardiac standpoint, blood pressure chronically difficult to control, worsened by pain in the amputation stump. Plan [facility] hopefully today. Continue aspirin, Plavix, carvedilol, amlodipine, statin, lisinopril. Unable to uptitrate carvedilol due to bradycardia. Chlorthalidone added by hospitalist service. Whenever he is discharged, can arrange follow-up with cardiology in 2 weeks. PDMP PDMP Reviewed: Not Reviewed Attestations Medical Necessity Statement*: possible DC to retirement Coding Level of Care Code Acute Code for Chg Fwd Diagnoses Peripheral arterial disease I73.9 Tobacco dependence F17.200 Coronary artery disease I25.10 Below-knee amputation of left lower extremity, subsequent encounter S88.112D Encounter type: subsequent encounter Laterality: left Hypertension I10
--- NOTE | 2024-12-26 10:45 | PM.DCS ---
Discharge Providers Date of Admission: 12/17/24 01:21 Date of Discharge: December 26, 2024 Attending Provider at Admission: Leny Romero MD Attending Provider at Discharge: Bjorn Ford MD Primary Care Provider: Samuel Cannon MD Diagnoses at Discharge Discharge Diagnosis 1. Hypertension: 2. Atrial fibrillation: 3. Unstable angina: 4. Diabetic foot ulcer: 5. Diabetic ulcer of left heel associated with diabetes mellitus due to underlying condition, with fat layer exposed: 6. Cellulitis: 7. Peripheral neuropathy: 8. Acute lower limb ischemia: 9. Osteomyelitis: 10. Diabetic foot infection: 11. Gas gangrene of foot: 12. Left renal artery stenosis: 13. Superior mesenteric artery stenosis: 14. Peripheral arterial disease: 15. Pulmonary edema: 16. Acute hypoxic respiratory failure: Reason for Visit Reason for Visit: CP Hospital Course Hospital Course This is a 74-year-old male with past medical history of smoking, hypertension, hyperlipidemia, type II diabetes who presents to [facility] for complaints of left leg pain, chest pain, diffuse musculoskeletal aches and pains Patient had a prolonged hospitalization, loop please look at my progress note for further detail Patient was admitted to [facility] for Acute versus chronic lower limb ischemia Arterial ultrasound on 12/07/2024 US/[place] [id number] IMPRESSION: Stenosis in the 75-99% range left common femoral artery. JOSELINE indicates moderate to severe peripheral arterial disease left lower extremity. Monophasic waveforms and spectral broadening l throughout the left lower extremity. CT aortogram bilateral extremities 3. Peripheral vascular disease as described above with findings including occlusion of the distal left common femoral artery Severe stenosis of the distal left superficial femoral artery and also of the distal left popliteal artery, and occlusion of the distal right superficial femoral artery. - Status post peripheral angiogram and intervention by cardiology, 12/18/2024 High-grade complete occlusion of left distal common femoral with highly calcified lesion High-grade distal lesion of the left SFA around 90% High-grade lesion of the mid to distal popliteal around 80 to 90% Occluded proximal to distal left anterior tibial vessels reconstitute at the distal end through the peroneal Intravascular lithotripsy and balloon angioplasty of popliteal distal SFA and common femoral left arteries. We got good results however left common femoral artery there appeared to be still 50 to 60% residual stenosis though it has much improved after lithotripsy and balloon angioplasty as it was completely occluded, it would be requiring supera stent which we do not have on the shelf. We will order that stent and bring him back for left common femoral artery treatment as it is around the joint and we would not like to put balloon expandable stent at this location. At the end of the case we have good flow all the way to the foot. - Managed on aspirin, statin, Plavix, - Overall left lower extremity was monitored - Will have to follow-up with crop and soil technician outpatient for further intervention in the near future Patient requires hospitalization for Left lower extremity diabetic foot infection, with gas gangrene seen left plantar aspect soft tissue, extending along lateral aspect of plantar foot FINDINGS: Bones/joints: No fracture or specific destructive lesion is seen in the foot to suggest active osteomyelitis. Soft tissues: There is diffuse subcutaneous edema throughout the foot especially along the posterior and plantar aspect of the heel. There are bubbles of abnormal soft tissue gas in the plantar soft tissues extending along the lateral aspect of the posterior foot consistent with gas gangrene. There is also a prominent soft tissue ulcer along posteromedial aspect of the heel. There is some radiopaque material within this ulcer which may represent dressing or ointment in the wound appears to be packed with gauze. Other findings: There is no fluid collection to suggest presence of abscess. Current smoker, smoking cessation counseling -With peripheral arterial disease left lower extremity with revascularization as above -Left foot culture showing Staph aureus, Enterococcus faecalis -Unfortunately attempts to salvage the foot including revascularization as above, IV antibiotics were not successful. -Patient had worsening sepsis, clinical examination of left lower extremity, after discussing the risk and benefits, patient voiced understanding, all questions answered, agreed to proceed with left below-knee amputation -Status post left lower extremity below-knee amputation, tolerated procedure well - Discharged on gabapentin 600 mg 3 times daily. -Discharged on oxycodone to be used sparingly for pain -Please use pain medication sparingly - Follow-up with orthopedic service Patient was admitted to [facility] for unstable angina, NSTEMI - Serial EKGs, serial troponins, telemetry monitoring - 6-hour troponin 42.3, T wave changes in lateral leads Cardiac echo CONCLUSIONS 1. Segmental wall motion abnormality of the left ventricle with hypokinesis of the mid and basal inferior and inferolateral wall segments. Globally, normal LV systolic function with EF of 53%. 2. No significant valvular abnormalities. -Initially medically managed on heparin drip, antiplatelet therapy, cardiology consulted, status post Status post coronary angiography Left main: No significant disease LAD has luminal irregularity with mid high-grade stenosis Ramus intermedius is subtotally occluded Left circumflex has luminal irregularities, obtuse marginal luminal irregularity, groove circumflex has high-grade stenosis it is small caliber vessels RCA is dominant large caliber vessel with high-grade calcified lesion in the proximal segment PCI to proximal RCA using lithotripsy and drug-eluting stent 2 overlapping postdilated with noncompliant balloon. PCI to mid LAD with drug-eluting stent postdilated noncompliant balloon Balloon angioplasty to groove circumflex PCI to proximal to mid ramus intermedius with drug-eluting stent postdilated with noncompliant balloon Overall good angiographic result noted. BRENDAN-3 flow was confirmed in all the vessels without any complication. - Patient will be discharged on aspirin, Plavix, beta-anastasia, statin with close follow-up cardiology as outpatient occlusion of the distal right superficial femoral artery - Right DP PT pulses palpable - Continue to monitor closely - Is on aspirin, statin, Plavix - Will need to follow-up with cardiology as outpatient for revascularization Left renal artery stenosis - Will have to follow-up with vascular surgery as outpatient Moderate superior mesenteric artery stenosis - Monitor for symptoms of mesenteric ischemia Right lower extremity lower extremities diabetic ulcers - With concerns for cellulitis CT right foot CT/CT foot RT wo con* [id number] IMPRESSION: 1. No acute fracture 2. Small soft tissue ulcer on the plantar aspect of the foot. Please correlate clinically. 3. No fluid collection or abscess is identified 4. No soft tissue gas is identified Discharge - Oral antibiotics, wound care Type 2 diabetes mellitus: Low-dose sliding scale . Initially going to be concerning for atrial fibrillation, cardiology reviewed EKGs, no significant evidence on EKG for atrial fibrillation, no episodes of atrial fibrillation during his hospitalization Physical Exam Const: COMMON NORMALS: no acute distress and patient oriented x3 Resp: COMMON NORMALS: normal respiratory effort, No retractions, No use of accessory muscles and clear to auscultation bilaterally AUSCULTATION: clear to auscultation bilaterally Cardio: COMMON NORMALS: regular rate, regular rhythm, S1 normal heart sound present and S2 normal heart sound present RATE: regular rate RHYTHM: regular rhythm HEART SOUNDS: S1 normal heart sound present and S2 normal heart sound present GI: COMMON NORMALS: Normal to inspection, nondistended, normoactive bowel sounds present and non-tender Extremity: COMMON NORMALS: no pedal edema NARRATIVE EXTREMITY EXAM: Right lower extremity DP PT pulses palpable, no overlying skin changes left lower extremity, wrapped Neuro: COMMON NORMALS: patient oriented x3, CN's II-XII intact bilaterally and moves all extremities Psych: COMMON NORMALS: mental status grossly normal Discharge Data Studies Completed and Pending Completed Studies During Hospitalization Category Date Time Status CT angio abd aorta runof [id number] Stat Cat Scan 12/17/24 11:[address] foot LT wo con* [id number] Routine Cat Scan 12/17/24 11:[address] foot RT wo con* [id number] Routine Cat Scan 12/17/24 11:06 Completed CTA PE [CT angio chest PE protcl [id number]] Stat Cat Scan 12/16/24 23:47 Completed XR chest 1V portable [id number] Stat Exams 12/16/24 23:14 Completed XR lumbar spine 2-3V* [id number] Routine Exams 12/17/24 11:38 Completed XR thoracic spine 2V [id number] Routine Exams 12/17/24 11:38 Completed CV. echo complete* [id number] Routine Ultrasound 12/17/24 13:24 Completed Pending at discharge Category Date Time Status STRAP SETTER request for service Routine Exams 12/18/24 06:37 Taken STRAP SETTER request for service Routine Exams 12/20/24 05:54 Taken Basic Metabolic Panel AM LABS Lab 12/27/24 04:00 Ordered Complete Blood Count w/Auto AM LABS Lab 12/27/24 04:00 Ordered NT Pro B Type Natriuretic Pept QAM Lab 12/27/24 06:00 Ordered Pathology: Surgical [PTH] Routine Pth 12/23/24 15:21 Ordered Radiology Impressions Chest X-Ray 12/16/24 23:14 IMPRESSION: 1. Cardiomegaly. 2. Subtle interstitial opacification, which may represent mild pulmonary edema in the setting of cardiomegaly. Interstitial pneumonia is not completely excluded. Chest CTA 12/16/24 23:47 IMPRESSION: 1. No acute pulmonary embolus or evidence of acute right heart strain. 2. Mild cardiomegaly. 3. Moderate to severe three-vessel coronary atherosclerosis. 4. No acute pulmonary process. 5. Findings, which may be suggestive renal osteodystrophy. Correlate with renal function. Aorta w/Runoff CTA 12/17/24 11:06 IMPRESSION: 1. Findings worrisome for gas gangrene of the left foot 2. Bilateral heel ulcers 3. Peripheral vascular disease as described above with findings including occlusion of the distal left common femoral artery Severe stenosis of the distal left superficial femoral artery and also of the distal left popliteal artery, and occlusion of the distal right superficial femoral artery. 4. Left renal artery stenosis 5. Moderate superior mesenteric artery stenosis 6. Fatty liver ADDENDUM: 12/17/24 1746 Addendum: THIS REPORT CONTAINS FINDINGS THAT MAY BE CRITICAL TO PATIENT CARE. The findings were verbally communicated via telephone conference with BJORN FORD at 5:39 PM CDT on 12/17/2024. The findings were acknowledged and understood. Foot CT 12/17/24 11:06 IMPRESSION: 1. Findings concerning for gas gangrene posterior left foot 2. There is a ulcer posteromedial left heel 3. Subcutaneous edema but no abscess is identified 4. No fracture COMMENTS: THIS REPORT CONTAINS FINDINGS THAT MAY BE CRITICAL TO PATIENT CARE. The findings were verbally communicated via telephone conference with BJORN FORD at 5:39 PM CDT on 12/17/2024. The findings were acknowledged and understood. Lumbar Spine X-Ray 12/17/24 11:38 IMPRESSION: 1. No acute findings. 2. Additional details as above. Thoracic Spine X-Ray 12/17/24 11:38 IMPRESSION: 1. No acute findings. 2. Additional details as above. Laboratory Results WBC 9.16 10^3/uL (3.29-11.43) 12/26/24 04:36 RBC 3.30 10^6/uL (3.85-5.65) L 12/26/24 04:36 Hgb 10.40 g/dL (11.27-16.99) L 12/26/24 04:36 Hct 31.1 % (37-53) L 12/26/24 04:36 MCV 94.2 fl (82-101) 12/26/24 04:36 MCH 31.5 pg (27-33) 12/26/24 04:36 MCHC 33.4 g/dL (30-55) 12/26/24 04:36 RDW 14.0 % (12.1-15.1) 12/26/24 04:36 Plt Count 596 10^3/cmm (157-399) H 12/26/24 04:36 MPV 9.7 fL (7.4-10.4) 12/26/24 04:36 Neut % (Auto) 61.8 % 12/26/24 04:36 Lymph % (Auto) 23.5 % 12/26/24 04:36 [place] % (Auto) 11.5 % 12/26/24 04:36 Eos % (Auto) 1.1 % 12/26/24 04:36 Baso % (Auto) 1.2 % 12/26/24 04:36 Neut # (Auto) 5.67 10^3/uL (1.8-7.7) 12/26/24 04:36 Lymph # (Auto) 2.2 10^3/uL (0.8-4.8) 12/26/24 04:36 [place] # (Auto) 1.1 10^3/uL (0.2-0.9) H 12/26/24 04:36 Eos # (Auto) 0.1 10^3/uL (0.0-0.8) 12/26/24 04:36 Baso # (Auto) 0.1 10^3/uL (0.0-0.1) 12/26/24 04:36 Nucleated RBC % (auto) 0 % 12/26/24 04:36 Nucleated RBCs # 0.0 /100WBC 12/26/24 04:36 ESR > 130 mm/hr (0-10) H 12/17/24 13:00 APTT 101.0 SECONDS (23.9-36.7) H D 12/19/24 23:03 D-Dimer 0.96 ug/mLFEU (0-0.59) H 12/16/24 22:30 Sodium 139 mmol/L (136-145) 12/26/24 04:36 Potassium 4.2 mmol/L (3.5-5.1) 12/26/24 04:36 Chloride 103 mmol/L (98-107) 12/26/24 04:36 Carbon Dioxide 26 mmol/L (22-29) 12/26/24 04:36 Anion Gap 14.2 (5-19) 12/26/24 04:36 BUN 18 mg/dL (8-23) 12/26/24 04:36 Creatinine 0.8 mg/dL (0.7-1.2) 12/26/24 04:36 GFR Calculation Not Reportable 12/26/24 04:36 Glucose 155 mg/dL (65-115) H 12/26/24 04:36 POC Glucose 153 mg/dL (70-110) H 12/26/24 06:34 Calculated Osmolality 293 mOsm/kg (285-295) 12/26/24 04:36 Calcium 8.0 mg/dL (8.5-10.5) L 12/26/24 04:36 Phosphorus 3.5 mg/dL (2.5-4.5) 12/20/24 03:22 Magnesium 2.1 mg/dL (1.7-2.3) 12/20/24 03:22 Total Bilirubin 0.3 mg/dL (0.15-1.2) 12/24/24 02:49 AST 45 U/L (0-40) H 12/24/24 02:49 ALT 47 U/L (0-41) H 12/24/24 02:49 Alkaline Phosphatase 157 U/L (40-130) H 12/24/24 02:49 Troponin T 5th Gen ng/L 37 ng/L (0-15) H 12/17/24 13:00 Troponin T Baseline 38 ng/L (0-15) H 12/16/24 22:30 Troponin T 120 Minute 36.84 ng/L (0-15) H 12/17/24 00:50 Delta Troponin T -1.16 ABS# (0-10) L 12/17/24 00:50 Troponin T Hi Sens 6Hr 42.32 ng/L (0-15) H 12/17/24 05:30 Troponin T Hi Sens 6Hr Delta 4.32 ng/L (0-12) 12/17/24 05:30 C-Reactive Protein 155.5 mg/L (0.0-4.9) H 12/20/24 03:22 NT-Pro-B Natriuret Pep 4710 pg/mL (0-125) H 12/26/24 04:36 Total Protein 6.9 g/dL (6.6-8.7) 12/24/24 02:49 Albumin 2.4 g/dL (3.5-5.2) L 12/24/24 02:49 Globulin 4.5 g/dL (1.3-4.6) 12/24/24 02:49 Procalcitonin 0.52 ng/mL (0-0.5) H 12/20/24 03:22 Urine Color Yellow (Yellow) 12/16/24 23:51 Urine Appearance Clear (CLEAR) 12/16/24 23:51 Urine pH 5.0 (5-7) 12/16/24 23:51 Ur Specific [place] 1.039 (1.005-1.030) H 12/16/24 23:51 Urine Protein 4+ (Negative) A 12/16/24 23:51 Urine Glucose (UA) Negative (Normal) 12/16/24 23:51 Urine Ketones Negative (Negative) 12/16/24 23:51 Urine Blood Negative (Negative) 12/16/24 23:51 Urine Nitrate Negative (Negative) 12/16/24 23:51 Urine Bilirubin Negative (Negative) 12/16/24 23:51 Urine Urobilinogen 1.0 mg/dL (Negative) 12/16/24 23:51 Ur Leukocyte Esterase Negative (Negative) 12/16/24 23:51 Urine RBC 3-5 /hpf (0-2) 12/16/24 23:51 Urine WBC 0-5 /hpf (0-5) 12/16/24 23:51 Ur Squamous Epith Cells 0-4 /hpf (0-5) H 12/16/24 23:51 Amorphous Sediment Not Reportable 12/16/24 23:51 Urine Bacteria None /hpf (NONE) 12/16/24 23:51 Vancomycin Trough 23.5 ug/mL (10-15) H 12/23/24 12:34 Urine Opiates Screen Positive ng/mL (Negative) H 12/17/24 01:29 Ur Barbiturates Screen Negative ng/mL (Negative) 12/17/24 01:29 Ur Phencyclidine Scrn Negative ng/mL (Negative) 12/17/24 01:29 Ur Amphetamines Screen Negative ng/mL (Negative) 12/17/24 01:29 U Benzodiazepines Scrn Negative ng/mL (Negative) 12/17/24 01:29 Urine Cocaine Screen Negative ng/mL (Negative) 12/17/24 01:29 U Marijuana (THC) Screen Negative ng/mL (Negative) 12/17/24 01:29 Adenovirus (PCR) Not detected (NOT DETECT) 12/21/24 11:17 C. pneumoniae DNA (PCR) Not detected (NOT DETECT) 12/21/24 11:17 Coronavirus 229E (PCR) Not detected (NOT DETECT) 12/21/24 11:17 Human Metapneumovir PCR Not detected (NOT DETECT) 12/21/24 11:17 Influenza A (H1) PCR Not detected (NOT DETECT) 12/21/24 11:17 Influ A (H1/09) PCR Not detected (NOT DETECT) 12/21/24 11:17 Influenza A (H3) PCR Not detected (NOT DETECT) 12/21/24 11:17 Influenza Type A (PCR) Not detected (NOT DETECT) 12/21/24 11:17 Influenza Type B (PCR) Not detected (NOT DETECT) 12/21/24 11:17 M. pneumoniae (PCR) Not detected (NOT DETECT) 12/21/24 11:17 Parainfluenza 1 (PCR) Not detected (NOT DETECT) 12/21/24 11:17 Parainfluenza 2 (PCR) Not detected (NOT DETECT) 12/21/24 11:17 Parainfluenza 3 (PCR) Not detected (NOT DETECT) 12/21/24 11:17 Parainfluenza 4 (PCR) Not detected (NOT DETECT) 12/21/24 11:17 RSV Type A (PCR) Not detected (NOT DETECT) 12/21/24 11:17 RSV Type B (PCR) Not detected (NOT DETECT) 12/21/24 11:17 Entero/Rhino (PCR) Not detected (NOT DETECT) 12/21/24 11:17 SARS-CoV-2 (PCR) Not detected (NOT DETECT) 12/21/24 11:17 Blood Type A Positive 12/22/24 14:49 Rho(D) Type Rh positive 12/22/24 14:49 Antibody Screen Negative 12/22/24 14:49 Vitals Last Vital Signs Temp 98.7 F 12/26/24 07:41 Pulse 72 12/26/24 08:18 Resp 18 12/26/24 08:18 BP 184/87 12/26/24 07:41 Pulse Ox 95 12/26/24 08:18 O2 Del Method Room Air 12/26/24 08:18 O2 Flow Rate 3 12/24/24 08:07 Discharge Plan Discharge Patient Disposition: Xfer SNF Condition: Stable Prescriptions: New oxycodone 5 mg Tablet 5 mg PO Q4H PRN (Reason: Moderate Pain) 5 Days Qty: 30 0RF aspirin 81 mg Tablet,Delayed Release (Dr/Ec) 81 mg PO DAILY 30 Days Qty: 30 0RF nitroglycerin 0.4 mg Tablet, Sublingual 0.4 mg sublingual Q5M PRN (Reason: Chest Pain) 30 Days Qty: 30 0RF insulin lispro [Humalog U-100 Insulin] 100 unit/mL Solution See Rx Instructions .ROUTE .COMPLEX Qty: 10 0RF Rx Instructions: Inject, subcut, 3 times daily, after meals, based on low-dose sliding scale atorvastatin 40 mg Tablet 40 mg PO BEDTIME 30 Days Qty: 30 0RF carvedilol 3.125 mg Tablet 3.125 mg PO Q12H 30 Days Qty: 60 0RF clopidogrel 75 mg Tablet 75 mg PO DAILY 30 Days Qty: 30 0RF doxycycline monohydrate 100 mg Tablet 100 mg PO BID 7 Days Qty: 14 0RF gabapentin 300 mg Capsule 600 mg PO TID 30 Days Qty: 180 0RF lisinopril 20 mg Tablet 20 mg PO BID 30 Days Qty: 60 0RF Continued amlodipine 10 mg tablet 10 mg PO DAILY metformin 1,000 mg tablet 1,000 mg PO BID albuterol sulfate 90 mcg/actuation HFA aerosol inhaler 2 puff INHALATION Q4H PRN (Reason: Shortness Of Breath) Changed insulin degludec [Tresiba FlexTouch U-200] 200 unit/mL (3 mL) insulin pen 5 unit SUBCUT DAILY 30 Days Qty: 9 0RF Discontinued amoxicillin-pot clavulanate [Augmentin] 500-125 mg tablet 1 tab PO BID Qty: 20 0RF gabapentin 400 mg capsule 400 mg PO TID simvastatin 20 mg tablet 20 mg PO QPM hydrocodone-acetaminophen 10-325 mg tablet 1 tab PO QID irbesartan-hydrochlorothiazide 300-12.5 mg tablet 1 tab PO DAILY No Action (DME) Post Op Shoe to the Right if available See Rx Instructions .Route .MEDSUPPLY Qty: 1 0RF Rx Instructions: As directed HOME- Patient needs a Post OP shoe to the Right if available if not Need a Short CAM Boot to the Right Length of Need 999 days (DME) CAM Boot to the Right See Rx Instructions .Route .MEDSUPPLY Qty: 1 0RF Rx Instructions: As directed HOME- Length of Need 999 days Discharge Order = DC NOW: Discharge Order (Routine); Ordered 12/26/24 Ordered By: Bjorn Ford [facility] Samuel Cannon MD [Primary Care Provider, Family Practice] Hao Plummer MD [Physician, Orthopedics] - 1 week Yogesh Wilcox M.D [Physician, Cardiology] - 1-3 days Tr Lu MD [Occupational Therapist, Vascular Surgery] - 1 month Referral Note: left renal artery stenosis, Moderate superior mesenteric artery stenosis Discharge Diet: Diabetic Discharge Activity: Increase activity as tolerated Patient Instructions: Acute Wound Care (DC), Opioid Safety, Post Anesthesia Care, Patient Portal & Treva Instructions Activity Restrictions/Additional Instructions: - Inject Tresiba 5 units daily -Please monitor your blood sugars closely -Monitor your blood sugars 3 times daily as after meals -Please record your blood sugars, and a blood sugar log -For your NovoLog -Please inject blood sugar after meals based on sliding scale provided -Do not inject insulin if you do not eat as hypoglycemia kills -This is a NovoLog sliding scale -Insulin sliding ?fingerstick? Insulin ?141-180?0 units/sq 181-220?2 units/sq ?221-260?4 units/sq ?261-300 6 units/sq ?301-350?8 units/sq ?351-400 10 units/sq ?401-450?12 units/sq >450? 14units/sq -If your blood sugar is greater than 500 go to the emergency room -If your blood sugar is less than 60 or at anytime you feel lightheaded or dizzy or diaphoretic or have chest palpitations check your blood sugar, and eat a hard candy or drink orange juice and go immediately to the emergency room -Remember hypoglycemia kills, so if his blood sugar is less than 60 we have to increase it by taking in a sugary meal such as a hard candy or orange juice and go to the emergency room -If you have any questions please call us where here to help - Please follow-up with cardiology - Monitor for right lower extremity pain, skin changes, sudden onset pain Discharge Attestations Time Spent in Discharge Care*: greater than 30 min Quality Metrics Clinical Quality Measures [ No reported AMI, CVA or VTE this stay] Coding Level of Care Code 47214 Total time (in minutes) for Discharge: 45 Diagnoses Hypertension I10 Atrial fibrillation I48.19 Atrial fibrillation type: persistent (not longstanding) Unstable angina I20.0 Diabetic foot ulcer E11.621; L97.509 Diabetic ulcer of left heel associated with diabetes mellitus due to underlying condition, with fat layer exposed E08.621; L97.422 Diabetic foot ulcer location: heel Laterality: left Cellulitis L03.90 Peripheral neuropathy G62.9 Acute lower limb ischemia I99.8 Osteomyelitis M86.9 Diabetic foot infection E11.628; L08.9 Gas gangrene of foot A48.0 Left renal artery stenosis I70.1 Superior mesenteric artery stenosis K55.1 Peripheral arterial disease I73.9 Pulmonary edema J81.1 Acute hypoxic respiratory failure J96.01
--- NOTE | 2024-12-26 10:57 | PC.SOCIAL ---
IMM Updated Updated pt on IMM. No questions voiced. Provided pt a copy. Initialed, dated, & timed copy in chart.
--- NOTE | 2024-12-26 11:54 | PC.NURSE ---
Sent referral paperwork to clinic @ 11:45a.m.
[2024-12-26 13:31] LABS: SARS Covid-2 Antigen Negative (Negative)
--- NOTE | 2024-12-26 13:47 | PC.NURSE ---
report called to [facility] talked to sam at [facility] and give report to her about his discharge orders.
--- NOTE | 2024-12-26 15:05 | PC.NURSE ---
called [facility] about the ETA for the transport to [facility] this patient. They called 2 hrs ago and told us they will be here in about an hour but no transport yet.
--- NOTE | 2024-12-26 15:18 | PC.NURSE ---
[facility] is here to pick the pt. pt is transferred via wheelchair. discharge packet provided. pt belongings are sent with the pt.
--- NOTE | 2024-12-26 15:22 | PC.NURSE ---
family notified talked to pt's sister stanley and notified her on the pt's transportation to [facility] at this time.
== END 2024-12-26 14:12 | disposition skilled nursing facility (03) | DRG 239 ==
LOC: ER 12-17 01:16 → CSU 12-17 01:29
PROVIDERS: Internal Medicine Cardiovascular Disease; Orthopaedic Surgery; Admitting Provider Internal Medicine; Emergency Provider Physician Assistant; PCP Family Medicine; Visit Provider Family Medicine
PROC: 04FL3ZZ Fragmentation of Left Femoral Artery, Percutaneous Approach (ICD-10-PCS; principal; 2024-12-18 07:00)
PROC: 04FL3ZZ Fragmentation of Left Femoral Artery, Percutaneous Approach (ICD-10-PCS; 2024-12-18 07:00)
PROC: 027237Z Dilation of Coronary Artery, Three Arteries with Four or More Drug-eluting Intraluminal Devices, Percutaneous Approach (ICD-10-PCS; principal; 2024-12-20 06:00)
PROC: 027237Z Dilation of Coronary Artery, Three Arteries with Four or More Drug-eluting Intraluminal Devices, Percutaneous Approach (ICD-10-PCS; 2024-12-20 06:00)
PROC: (CPT 27880; principal; 2024-12-23 12:55)
DX: E11.52 Type 2 diabetes mellitus with diabetic peripheral angiopathy with gangrene (principal); A48.0 Gas gangrene; I21.4 Non-ST elevation (NSTEMI) myocardial infarction; J96.01 Acute respiratory failure with hypoxia; I50.32 Chronic diastolic (congestive) heart failure; L97.424 Non-pressure chronic ulcer of left heel and midfoot with necrosis of bone; M86.9 Osteomyelitis, unspecified; L03.116 Cellulitis of left lower limb; K55.1 Chronic vascular disorders of intestine; I48.92 Unspecified atrial flutter; I25.10 Atherosclerotic heart disease of native coronary artery without angina pectoris; I11.0 Hypertensive heart disease with heart failure; I48.91 Unspecified atrial fibrillation; E11.621 Type 2 diabetes mellitus with foot ulcer; E11.40 Type 2 diabetes mellitus with diabetic neuropathy, unspecified; E11.69 Type 2 diabetes mellitus with other specified complication; I77.1 Stricture of artery; I70.1 Atherosclerosis of renal artery; I70.8 Atherosclerosis of other arteries; E78.5 Hyperlipidemia, unspecified; Z79.82 Long term (current) use of aspirin; Z79.4 Long term (current) use of insulin; Z79.02 Long term (current) use of antithrombotics/antiplatelets; Z87.891 Personal history of nicotine dependence
CPT/HCPCS: 11042; 36415; 36416; 71045; 71275; 72070; 72100; 73700; 75625; 75635; 75716; 80048; 80053; 80202; 80306; 81001; 82962; 83735; 83880; 84100; 84145; 84484; 85025; 85347; 85378; 85651; 85730; 86140; 86850; 86900; 87040; 87070; 87077; 87176; 87186; 87205; 87426; 87486; 87581; 87633; 88307; 88311; 92920; 92972; 93005; 93306; 93458; 94664; 96365; 96366; 96372; 96374; 96375; 97161; 97166; 97530; 97597; 99152; 99153; 99285; C1725; C1761; C1769; C1874; C1887; C1894; C9600; C9764; C9765; J0360; J0690; J0696; J1100; J1171; J1200; J1644; J1650; J1815; J1885; J1938; J2185; J2250; J2270; J2371; J2405; J2470; J2704; J2795; J3010; J3373; J3480; J3490; J7030; J7050; J9999; Q0163; Q9967

== ENCOUNTER → 2025-01-17 14:43 | Outpatient (BNVA) | payer MEDICARE, SELFPAY | PROVIDERS: PCP Family Medicine; Visit Provider Internal Medicine Cardiovascular Disease | DX: I25.10 Atherosclerotic heart disease of native coronary artery without angina pectoris (principal); I73.9 Peripheral vascular disease, unspecified; Z95.5 Presence of coronary angioplasty implant and graft; Z87.891 Personal history of nicotine dependence | CPT/HCPCS: 99214 ==

== ENCOUNTER → 2025-01-19 08:43 | Outpatient (BNVA) | payer MEDICARE, SELFPAY | PROVIDERS: PCP Family Medicine; Visit Provider Orthopaedic Surgery | DX: Z98.890 Other specified postprocedural states (principal); Z89.512 Acquired absence of left leg below knee | CPT/HCPCS: 99024 ==

== ENCOUNTER → 2025-02-02 13:00 | Outpatient (BNVA) | payer MEDICARE, SELFPAY | PROVIDERS: PCP Family Medicine; Visit Provider Orthopaedic Surgery | DX: Z98.890 Other specified postprocedural states (principal) | CPT/HCPCS: 99024 ==